=== PATIENT | female | born 1965 | race Caucasian/White ===

== ENCOUNTER 2017-08-24 20:30 | Inpatient (IN) | payer BC ==
[2017-08-24 21:05] LABS: Urine Blood 2+ (NEG); Urine Glucose NEGATIVE (NEG); Urine Protein NEGATIVE (NEG); Urine pH 7.5 (5.0-7.0)
[2017-08-24 21:45] LABS: Absolute Lymphocytes (CBC) 2.2 K/uL (0.7-4.9); Absolute Monocytes 0.8 K/uL (0.1-1.3); Absolute Neutrophil 5.8 K/uL (1.8-8.0); Basophils % 0.5 % (0-1.3); Eosinophils % 0.6 % (0-4.4); Lymphocytes % 24.3 % (15.3-44.8); MCH 31.9 pg (27.0-35.0); MCV 90.5 fL (80-100); MPV 8.4 fL (7.6-11.3); Monocytes % 9.1 % (3.3-12.3)
--- NOTE | 2017-08-24 21:45 | RAD REPORT ---
EXAM DESCRIPTION: RAD - Chest Single View - 08/24/2017 9:39 pm CLINICAL HISTORY: PALPITATIONS Chest pain. COMPARISON: Chest Single View dated 10/01/2016; Chest Pa And Lat (2 Views) dated 04/22/2016; Chest Pa And Lat (2 Views) dated 03/27/2016; CHEST SINGLE VIEW dated 04/25/2013 FINDINGS: Portable technique limits examination quality. The lungs are grossly clear. The heart is normal in size. No displaced fractures.Cervical hardware pl ate noted. IMPRESSION: No acute intrathoracic process suspected.
[2017-08-24 21:46] LABS: Protime INR 1.03
[2017-08-24 21:51] LABS: Bicarbonate 24 mEq/L (21-31); Glucose Level 117 mg/dL (65-120); Potassium 3.1 mEq/L (3.6-5.0); Sodium Level 121 mEq/L (135-145)
[2017-08-24 21:57] LABS: ALT/SGPT 13 IU/L (10-60); AST/SGOT 20 IU/L (10-42); Alkaline Phosphatase 89 IU/L (42-121); BUN Blood Urea Nitrogen 8 mg/dL (6-20); Bilirubin Direct 0.1 mg/dL (0-0.2); Bilirubin Total 0.5 mg/dL (0.3-1.2); Creatine Phosphokinase 159 IU/L (22-269); Magnesium 1.8 mg/dL (1.8-2.5); Protein, Total 6.6 g/dL (6.0-8.3)
[2017-08-24 22:01] LABS: CKMB Creatine Kinase MB 1.9 ng/ml (0.3-4.0)
--- NOTE | 2017-08-24 23:11 | EDPHYS ---
Physician Documentation [facility] Name: Sydney Oliveira Age: 52 yrs Sex: Female : 1965 Arrival Date: 08/24/2017 Time: 20:34 Bed 4 Private MD: Durga Lagos H ED Physician Ryland Bueno HPI: 08/24 21:35 This 52 yrs old Female presents to ER via Ambulatory with complaints of pkl Dizziness, Vomiting, Headache, High Blood Pressure. 21:36 The patient presents with a history of heart racing. Onset: The symptoms/episode pkl began/occurred just prior to arrival, 3 hour(s) ago. Associated signs and symptoms: Pertinent positives: headache. 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 - Social history:: Smoking status: Patient uses tobacco products, smokes one pack cigarettes per day. - Ebola Screening: : No symptoms or risks identified at this time. ROS: 21:36 Eyes: Negative for injury, pain, redness, and discharge, ENT: Negative for injury, pkl pain, and discharge, Neck: Negative for injury, pain, and swelling. 21:36 Cardiovascular: Positive for palpitations. 21:36 Respiratory: Negative for cough, shortness of breath. 21:36 Abdomen/GI: Negative for abdominal pain, nausea, vomiting, and diarrhea. 21:36 Back: Negative for acute changes. 21:36 : Negative for urinary symptoms. 21:36 MS/extremity: Negative for acute changes. 21:36 Skin: Negative for rash. 21:36 Neuro: Positive for headache. Exam: 23:08 Head/Face: Normocephalic, atraumatic. Eyes: Pupils equal round and reactive to light, pkl extra-ocular motions intact. Lids and lashes normal. Conjunctiva and sclera are non-icteric and not injected. Cornea within normal limits. Periorbital areas with no swelling, redness, or edema. ENT: Nares patent. No nasal discharge, no septal abnormalities noted. Tympanic membranes are normal and external auditory canals are clear. Oropharynx with no redness, swelling, or masses, exudates, or evidence of obstruction, uvula midline. Mucous membranes moist. Neck: Trachea midline, no thyromegaly or masses palpated, and no cervical lymphadenopathy. Supple, full range of motion without nuchal rigidity, or vertebral point tenderness. No Meningismus. Chest/axilla: Normal chest wall appearance and motion. Nontender with no deformity. No lesions are appreciated. Cardiovascular: Regular rate and rhythm with a normal S1 and S2. No gallops, murmurs, or rubs. Normal PMI, no JVD. No pulse deficits. Respiratory: Lungs have equal breath sounds bilaterally, clear to auscultation and percussion. No rales, rhonchi or wheezes noted. No increased work of breathing, no retractions or nasal flaring. Abdomen/GI: Soft, non-tender, with normal bowel sounds. No distension or tympany. No guarding or rebound. No evidence of tenderness throughout. Back: No spinal tenderness. No costovertebral tenderness. Full range of motion. Skin: Warm, dry with normal turgor. Normal color with no rashes, no lesions, and no evidence of cellulitis. MS/ Extremity: Pulses equal, no cyanosis. Neurovascular intact. Full, normal range of motion. Neuro: Awake and alert, GCS 15, oriented to person, place, time, and situation. Cranial nerves II-XII grossly intact. Motor strength 5/5 in all extremities. Sensory grossly intact. Cerebellar exam normal. Normal gait. Vital Signs: 20:55 BP 173 / 96; Pulse 80; Resp 18; Temp 98.2; Pulse Ox 100% on R/A; Weight 55.79 kg (R); ak1 Height 5 ft. 3 in. (160.02 cm) (R); Pain 6/10; 22:00 BP 165 / 102; Pulse 70; Resp 16; Pulse Ox 97% ; ao 23:10 BP 160 / 87; Pulse 73; Resp 18; Pulse Ox 98% on R/A; ao 08/25 00:00 BP 162 / 83; Pulse 80; Resp 16; Pulse Ox 99% ; ao 01:13 BP 112 / 66; Pulse 74; Resp 18; Pulse Ox 98% on R/A; Pain 0/10; ao 08/24 20:55 Body Mass Index 21.79 (55.79 kg, 160.02 cm) ak1 MDM: 08/24 20:51 Patient medically screened. pkl 23:08 Data reviewed: vital signs, nurses notes, lab test result(s), EKG, radiologic studies, pkl plain films. 08/24 20:58 Order name: Urine Dipstick--Ancillary (enter results); Complete Time: 23:03 eb 08/24 20:58 Order name: Urine --Ancillary (enter results); Complete Time: 23:03 eb 08/24 21:12 Order name: Basic Metabolic Panel; Complete Time: 23:03 pkl 08/24 21:12 Order name: BNP; Complete Time: 23:03 pkl 08/24 21:12 Order name: CBC with Diff; Complete Time: 23:03 pkl 08/24 21:12 Order name: Ckmb; Complete Time: 23:03 pkl 08/24 21:12 Order name: CPK; Complete Time: 23:03 pkl 08/24 21:12 Order name: LFT's; Complete Time: 23:03 pkl 08/24 21:12 Order name: Magnesium; Complete Time: 23:03 pkl 08/24 21:12 Order name: PT-INR; Complete Time: 23:03 pkl 08/24 21:12 Order name: Ptt, Activated; Complete Time: 23:03 pkl 08/24 21:12 Order name: Troponin (emerg Dept Use Only); Complete Time: 23:03 pkl 08/24 21:12 Order name: XRAY Chest (1 view); Complete Time: 23:03 pkl 08/24 21:12 Order name: EKG; Complete Time: 21:12 pkl 08/24 21:12 Order name: Cardiac monitoring; Complete Time: 23:29 pkl 08/24 21:12 Order name: EKG - Nurse/Tech; Complete Time: 23:30 pkl 08/24 21:12 Order name: IV Saline Lock; Complete Time: 23:29 pkl 08/24 21:12 Order name: Labs collected and sent; Complete Time: 23:30 pkl 08/24 21:12 Order name: O2 Per Protocol; Complete Time: 23:30 pkl 08/24 21:12 Order name: O2 Sat Monitoring; Complete Time: 23:30 pkl 08/24 21:12 Order name: Urine Dipstick-Ancillary (obtain specimen); Complete Time: 23:30 pkl Administered Medications: 23:28 Drug: Demerol 25 mg Route: IVP; Site: right antecubital; ao 23:28 Drug: Zofran 4 mg Route: IVP; Site: right antecubital; ao 23:29 Drug: NS 0.9% 1000 ml Route: IV; Rate: 1 bolus; Site: right antecubital; ao 08/25 00:17 Drug: NS 0.9% 1000 ml Route: IV; Rate: 125 ml/hr; Site: right antecubital; ao Disposition: 08/24/17 23:11 Hospitalization ordered by Karri Ramos for Inpatient Admission. Preliminary diagnosis is Generalized weakness. Hyponatremia. Headache. Vomiting. - Bed requested for Telemetry/MedSurg (Inpatient). - Status is Inpatient Admission. ao - Condition is Stable. - Problem is new. - Symptoms are unchanged. UTI on Admission? No Signatures: Dispatcher [employer] EDMS Briana Cardozo RN RN kl Lam, Pin, MD MD pkl Krenek, Amber, RN RN ak1 Kayode Tucker RN RN ao Corrections: (The following items were deleted from the chart) 00:31 08/24 23:11 Hospitalization Ordered by Karri Ramos MD for Inpatient Admission. basilio Preliminary diagnosis is Generalized weakness. Hyponatremia. Headache. Vomiting. Bed requested for Telemetry/MedSurg (Inpatient). Status is Inpatient Admission. Condition is Stable. Problem is new. Symptoms are unchanged. UTI on Admission? No. pkl 08/25 01:45 00:31 08/24/2017 23:11 Hospitalization Ordered by Karri Ramos MD for Inpatient ao Admission. Preliminary diagnosis is Generalized weakness. Hyponatremia. Headache. Vomiting. Bed requested for Telemetry/MedSurg (Inpatient). Status is Inpatient Admission. Condition is Stable. Problem is new. Symptoms are unchanged. UTI on Admission? No. kl
--- NOTE | 2017-08-24 23:11 | ER ---
Nurse's Notes [facility] Name: Sydney Oliveira Age: 52 yrs Sex: Female : 1965 Arrival Date: 08/24/2017 Time: 20:34 Bed 4 Private MD: Durga Lagos H Diagnosis: Generalized weakness. Hyponatremia. Headache. Vomiting Presentation: 08/24 20:56 Presenting complaint: Patient states: headache this morning increased after getting her ak1 nails done. pt c/o "racing heart rate" at 1600. pt with hx anxiety. Transition of care: patient was not received from another setting of care. Onset of symptoms was August 24, 2017. Risk Assessment: Do you want to hurt yourself or someone else? Patient reports no desire to harm self or others. Initial Sepsis Screen: Does the patient meet any 2 criteria? No. Patient's initial sepsis screen is negative. Does the patient have a suspected source of infection? No. Patient's initial sepsis screen is negative. Care prior to arrival: None. 20:56 Method Of Arrival: Ambulatory ak1 20:56 Acuity: VILLA 3 ak1 Triage Assessment: 21:06 General: Appears in no apparent distress. Behavior is calm, cooperative. Pain: ak1 Complains of pain in headache. EENT: No signs and/or symptoms were reported regarding the EENT system. Neuro: Level of Consciousness is awake, alert, obeys commands, Oriented to person, place, time, situation, Head Of Strategy are equal bilaterally Moves all extremities. Gait is steady, Speech is normal, Facial symmetry appears normal. Cardiovascular: Reports lightheadedness, palpitations. Respiratory: No deficits noted. GI: Reports nausea. : No signs and/or symptoms were reported regarding the genitourinary system. Derm: No signs and/or symptoms reported regarding the dermatologic system. Musculoskeletal: No signs and/or symptoms reported regarding the musculoskeletal system. 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 - Social history:: Smoking status: Patient uses tobacco products, smokes one pack cigarettes per day. - Ebola Screening: : No symptoms or risks identified at this time. Screenin:35 Abuse screen: Denies threats or abuse. Denies injuries from another. Nutritional ao screening: No deficits noted. Tuberculosis screening: No symptoms or risk factors identified. Fall Risk None identified. Assessment: 21:20 General: See triage assessment. GI: Abdomen is non-distended. ao 22:25 Reassessment: Patient appears in no apparent distress at this time. Patient and/or ao family updated on plan of care and expected duration. Pain level reassessed. Patient is alert, oriented x 3, equal unlabored respirations, skin warm/dry/pink. 23:32 Reassessment: Patient appears in no apparent distress at this time. Patient and/or ao family updated on plan of care and expected duration. Pain level reassessed. Patient is alert, oriented x 3, equal unlabored respirations, skin warm/dry/pink. Waiting Dr orders. Patient to be admitted to the hospital. Patient agree with the POC. 08/25 00:30 Reassessment: Patient appears in no apparent distress at this time. Patient and/or ao family updated on plan of care and expected duration. Pain level reassessed. Patient is alert, oriented x 3, equal unlabored respirations, skin warm/dry/pink. Waiting on room assignment. 01:18 Reassessment: Patient appears in no apparent distress at this time. Report called to ao primary nurse. Vital Signs: 08/24 20:55 BP 173 / 96; Pulse 80; Resp 18; Temp 98.2; Pulse Ox 100% on R/A; Weight 55.79 kg (R); ak1 Height 5 ft. 3 in. (160.02 cm) (R); Pain 6/10; 22:00 BP 165 / 102; Pulse 70; Resp 16; Pulse Ox 97% ; ao 23:10 BP 160 / 87; Pulse 73; Resp 18; Pulse Ox 98% on R/A; ao 08/25 00:00 BP 162 / 83; Pulse 80; Resp 16; Pulse Ox 99% ; ao 01:13 BP 112 / 66; Pulse 74; Resp 18; Pulse Ox 98% on R/A; Pain 0/10; ao 08/24 20:55 Body Mass Index 21.79 (55.79 kg, 160.02 cm) ak1 ED Course: 08/24 20:34 Patient arrived in ED. al2 20:36 Durga Lagos DO is Private Physician. al2 20:51 Ryland Bueno MD is Attending Physician. pkl 20:55 Purvi Jack RN is Primary Nurse. ak1 20:59 Triage completed. ak1 21:06 Arm band placed on Patient placed in an exam room, on a stretcher, on pulse oximetry, ak1 Patient notified of wait time. 21:39 XRAY Chest (1 view) In Process Unspecified. EDMS 23:09 Karri Ramos MD is Hospitalizing Provider. pkl 23:35 Patient has correct armband on for positive identification. Pulse ox on. NIBP on. ao 08/25 01:09 No provider procedures requiring assistance completed. Inserted saline lock: 20 gauge ak1 in right antecubital area, using aseptic technique. ,using aseptic technique. placed by Karlene Alex Blood collected. Patient admitted, IV remains in place. Administered Medications: 08/24 23:28 Drug: Demerol 25 mg Route: IVP; Site: right antecubital; ao 23:28 Drug: Zofran 4 mg Route: IVP; Site: right antecubital; ao 23:29 Drug: NS 0.9% 1000 ml Route: IV; Rate: 1 bolus; Site: right antecubital; ao 08/25 00:17 Drug: NS 0.9% 1000 ml Route: IV; Rate: 125 ml/hr; Site: right antecubital; ao Outcome: 08/24 23:11 Decision to Hospitalize by Provider. pkl 08/25 01:10 Admitted to Med/surg accompanied by tech, via wheelchair, room 225, with chart, Report ak1 called to Roya FULLER Condition: good 01:14 Instructed on the need for admit. ak1 01:45 Patient left the ED. ao Signatures: Dispatcher [employer] EDMS Ryland Bueno MD MD pkl Krenek, Purvi, RN RN ak1 Kayode Tucker, RN RN michael Chan, Raina mai
[2017-08-24] MEDS ORDERED: NA CHLORIDE 0.9% 1,000 ML ONE (23:26)
[2017-08-24] MEDS ORDERED: ONDANSETRON 4 MG/2 ML VIAL ONE (23:26)
[2017-08-24] MEDS ORDERED: MEPERIDINE HCL 25 MG/0.5 ML ONE (23:26)
--- NOTE | 2017-08-25 00:12 | P.HP ---
Certification for Inpatient Patient admitted to: Inpatient With expected LOS: >2 Midnights Practitioner: I am a practitioner with admitting privileges, knowledge of patient current condition, hospital course, and medical plan of care. Services: Services provided to patient in accordance with Admission requirements found in Title 42 Section 412.3 of the Code of Federal Regulations Patient History Date of Service: 08/25/17 Reason for admission: hyponatremia History of Present Illness: Ms Oliveira is a 52 years old woman with history of anxiety, migraine headache, chronic pain who came to ED complaining of severe headache. Her symptoms started this morning. Her headache was generalized, and progressively getting worse. It was associated with few episodes of diarrhea and vomiting. She tried tylenol but vomited it too. She denied fever or chills. No weakness or numbness. She denied chest pain or SOB, however this afternoon, she felt racing heart rate. Lab work remarkable for hypokalemia 3.1, hyponatremia 121, also low chloride 88, renal function WNL. Allergies codeine [Codeine] Allergy (Intermediate, Verified 07/10/15 09:54) Rash morphine Allergy (Intermediate, Verified 07/10/15 09:54) Rash Penicillins Allergy (Intermediate, Verified 07/10/15 09:54) UPSET STOMACH AND SKIN CRAWLING hydromorphone HCl [From Dilaudid] Allergy (Verified 07/10/15 09:54) hallucinations Home Medications: LORazepam [Lorazepam] 0.5 mg PO PRN 07/10/15 Losartan/Hydrochlorothiazide [Losartan-Hctz 50-12.5 mg Tab] 50 mg PO BID Methocarbamol [Robaxin] 500 mg PO PRN PRN 07/10/15 Propafenone [Rythmol SR] 225 mg PO BID 07/10/15 Temazepam 30 mg PO 30 MIN BEFORE HS 07/10/15 - Past Medical/Surgical History -: anxiety -: migraine -: NECK SURGERY; Hysterectomy; ; Cholecystectomy; Appendectomy - Family History Family History: Reviewed- Non-Contributory - Social History Smoking Status: Current every day smoker Counseled patient to stop smoking for: less than 10 minutes Smoking therapy provided: Yes Patient receptive to therapy: Yes CD- Drugs: No Place of Residence: Home Review of Systems 10-point ROS is otherwise unremarkable Physical Examination - Physical Exam General: Alert, Mild distress (due to headache) HEENT: Atraumatic, PERRLA, Mucous membr. moist/pink, EOMI, Sclerae nonicteric Neck: Supple, 2+ carotid pulse no bruit, No LAD, Without JVD or thyroid abnormality Respiratory: Clear to auscultation bilaterally, Normal air movement Cardiovascular: Regular rate/rhythm, Normal S1 S2 Gastrointestinal: Normal bowel sounds, No tenderness Musculoskeletal: No tenderness Integumentary: No rashes Neurological: Normal speech, Normal strength at 5/5 x4 extr, Normal tone, Normal affect Lymphatics: No axilla or inguinal lymphadenopathy - Studies Laboratory Data (last 24 hrs) 08/24/17 21:25: PT 12.2, INR 1.03, APTT 29.2 08/24/17 21:25: WBC 8.9, Hgb 13.4, Hct 38.0, Plt Count 275 08/24/17 21:25: B-Natriuretic Peptide 10 08/24/17 21:25: Sodium 121 L, Potassium 3.1 L, BUN 8, Creatinine 0.63, Glucose 117, Magnesium 1.8, Total Bilirubin 0.5, AST 20, ALT 13, Alkaline Phosphatase 89 Assessment and Plan - Problems (Diagnosis) (1) Hyponatremia Current Visit: Yes Status: Acute (2) Migraine Current Visit: Yes Status: Acute Qualifiers: Migraine type: unspecified Status migrainosus presence: without status migrainosus Intractability: not intractable Qualified Code(s): G43.909 - Migraine, unspecified, not intractable, without status migrainosus (3) Hypokalemia Current Visit: Yes Status: Acute (4) Dehydration Current Visit: Yes Status: Acute - Plan The patient will be admitted to the hospital due to hyponatremia. Pending serum and urine osmolality, however, this is possible secondary volume depletion since she has had diarrhea and vomiting. Will start IV normal saline, the goal is gradual increase of sodium level. Will order sumatriptam PRN, and symptomatic medication for nausea and vomiting. - Advance Directives Does patient have a Living Will: No Does patient have a Durable POA for Healthcare: No - Code Status/Comfort Care Code Status Assessed: Yes Code Status: Full Code
[2017-08-25] MEDS ORDERED: NA CHLORIDE 0.9% 1,000 ML ONE (00:16)
[2017-08-25] MEDS: SUMATRIPTAN SUCCI 50 MG TAB PO PRN ×2 (00:54→09:55)
[2017-08-25] MEDS ORDERED: ONDANSETRON 4 MG/2 ML VIAL IV PRN (01:55)
[2017-08-25] MEDS: NA CHLORIDE 0.9% 1,000 ML IV SCH ×2 (01:55→11:34)
[2017-08-25 02:15] VITALS: BMI 21.4
[2017-08-25] MEDS: ACETAMINOPHEN 500 MG TAB PO PRN ×2 (02:55→08:34)
[2017-08-25 04:00] VITALS: O2SAT 100
[2017-08-25 05:52] LABS: Absolute Lymphocytes (CBC) 2.1 K/uL (0.7-4.9); Absolute Monocytes 0.7 K/uL (0.1-1.3); Absolute Neutrophil 2.7 K/uL (1.8-8.0); Basophils % 0.6 % (0-1.3); Eosinophils % 2.2 % (0-4.4); Lymphocytes % 37.3 % (15.3-44.8); MCH 31.7 pg (27.0-35.0); MCV 92.6 fL (80-100); MPV 8.7 fL (7.6-11.3); Monocytes % 12.9 % (3.3-12.3); RBC Red Blood Cell Count 4.32 M/uL (3.86-4.86)
--- NOTE | 2017-08-25 06:14 | EKG ---
Test Date: 2017-08-24 Test Time: 21:01:11 Estimator And Drafter: SERVANDO MEASUREMENT RESULTS: Intervals: Rate: 85 CA: 156 QRSD: 82 QT: 380 QTc: 452 [place]: P: 76 CA: 156 QRS: 72 T: 56 INTERPRETIVE STATEMENTS: Normal sinus rhythm Normal ECG Compared to ECG 10/01/2016 23:49:42 Sinus arrhythmia no longer present Electronically Signed On 08-25-17 06:13:50 CDT by Bernabe Hernandez
[2017-08-25 06:40] LABS: BUN Blood Urea Nitrogen 7 mg/dL (6-20); Bicarbonate 23 mEq/L (21-31); Glucose Level 96 mg/dL (65-120); Potassium 4.2 mEq/L (3.6-5.0); Sodium Level 136 mEq/L (135-145)
--- NOTE | 2017-08-25 08:25 | RAD REPORT ---
EXAM DESCRIPTION: CT - Head Brain Wo Cont - 08/25/2017 4:10 am CLINICAL HISTORY: Headache with nausea and vomiting, history of anxiety and migraine headaches A preliminary written report was provided at the time of the study, and the report was reviewed prio r to final dictation. COMPARISON: None. TECHNIQUE: Axial 5 mm thick images of the head were obtained without IV contrast. All CT scans are performed using dose optimization technique as appropriate and may include automated exposure control or mA/KV adjustment according to patient size. FINDINGS: No intracranial hemorrhage, mass, edema or shift of mid-line structures. No acute infarcti on changes seen. No abnormal extra-axial fluid collections. Ventricles are normal. Mastoid air cells and visualized portions of the paranasal sinuses are clear. No acute bony findings. IMPRESSION: Negative non-contrast CT head examination.
[2017-08-25] MEDS ORDERED: NICOTINE 14 MG/PAT TD SCH (09:00)
[2017-08-25 12:14] VITALS: BP 134/64
[2017-08-25 12:15] VITALS: TEMP 97.2
--- NOTE | 2017-08-25 14:20 | P.DS ---
Admission Date: 08/24/17 Discharge Date: 08/25/17 Disposition: ROUTINE DISCHARGE Discharge Condition: GOOD Reason for Admission: hyponatremia Consultations: - Problems (1) Dehydration Current Visit: Yes Status: Resolved (2) Hypokalemia Current Visit: Yes Status: Resolved (3) Hyponatremia Current Visit: Yes Status: Resolved (4) Migraine Current Visit: Yes Status: Resolved Qualifiers: Migraine type: unspecified Status migrainosus presence: without status migrainosus Intractability: not intractable Qualified Code(s): G43.909 - Migraine, unspecified, not intractable, without status migrainosus Brief History of Present Illness: Ms Oliveira is a 52 years old woman with history of anxiety, migraine headache, chronic pain who came to ED complaining of severe headache. Her symptoms started this morning. Her headache was generalized, and progressively getting worse. It was associated with few episodes of diarrhea and vomiting. She tried tylenol but vomited it too. She denied fever or chills. No weakness or numbness. She denied chest pain or SOB, however this afternoon, she felt racing heart rate. Lab work remarkable for hypokalemia 3.1, hyponatremia 121, also low chloride 88, renal function WNL. Hospital Course: Overall during the hospital stay patient remained stable Initially patient was admitted to the hospital for severe headache which was most likely secondary to migraine along with nausea vomiting and hypernatremia. Patient was started on IV fluids and was given Imitrex here in the hospital. Patient had complete resolution of her symptoms and her lab work revealed a sodium level of 136. Patient at that time was discharged home under stable condition. Patient did tolerate her diet and was able to ambulate just fine and was asked to follow up with primary care provider. Patient was also asked to take Imitrex as necessary for migraine attacks. Patient demonstrated understanding. Vital Signs/Physical Exam: Temp Pulse Resp BP Pulse Ox 97.2 F 73 20 134/64 97 08/25/17 12:00 08/25/17 12:00 08/25/17 12:00 08/25/17 12:08/25/17 12:00 General: Alert, In no apparent distress HEENT: Atraumatic, PERRLA, EOMI Neck: Supple, JVD not distended Respiratory: Clear to auscultation bilaterally, Normal air movement Cardiovascular: Regular rate/rhythm, Normal S1 S2 Gastrointestinal: Normal bowel sounds, No tenderness Musculoskeletal: No tenderness Integumentary: No rashes Neurological: Normal speech, Normal tone, Normal affect Lymphatics: No axilla or inguinal lymphadenopathy Laboratory Data at Discharge: WBC 5.7 K/uL (4.3-10.9) D 08/25/17 05:16 Hgb 13.7 g/dL (12.0-15.0) 08/25/17 05:16 Hct 40.0 % (36.0-45.0) 08/25/17 05:16 Plt Count 277 K/uL (152-406) 08/25/17 05:16 PT 12.2 SECONDS (9.5-12.5) 08/24/17 21:25 INR 1.03 08/24/17 21:25 APTT 29.2 SECONDS (24.3-36.9) 08/24/17 21:25 Sodium 136 mEq/L (135-145) 08/25/17 05:16 Potassium 4.2 mEq/L (3.6-5.0) 08/25/17 05:16 BUN 7 mg/dL (6-20) 08/25/17 05:16 Creatinine 0.62 mg/dL (0.44-1.00) 08/25/17 05:16 Glucose 96 mg/dL (65-120) 08/25/17 05:16 Magnesium 2.1 mg/dL (1.8-2.5) 08/25/17 05:16 Total Bilirubin 0.5 mg/dL (0.3-1.2) 08/24/17 21:25 AST 20 IU/L (10-42) 08/24/17 21:25 ALT 13 IU/L (10-60) 08/24/17 21:25 Alkaline Phosphatase 89 IU/L (42-121) 08/24/17 21:25 B-Natriuretic Peptide 10 pg/ml (<=100) 08/24/17 21:25 Home Medications: Fluoxetine HCl [Prozac] 10 mg PO DAILY 08/25/17 Fluoxetine HCl [Prozac] 20 mg PO DAILY 08/25/17 LORazepam [Ativan*] 0.5 mg PO BID PRN 08/25/17 Losartan Potassium [Cozaar*] 50 mg PO BID 08/25/17 Sumatriptan [Imitrex*] 50 mg PO PRN PRN #30 tab 08/25/17 New Medications: Sumatriptan [Imitrex*] 50 mg PO PRN PRN #30 tab PRN Reason: Headache Diet: Regular Activity: Ad chandra Followup: Jay Santana MD [ASSOCIATE-ACTIVE - CAN ADMIT] - 1 Week
== END 2017-08-25 15:45 | disposition home or self-care (01) | DRG 641 ==
LOC: ER 20:30 → ERHOLD 23:13 → 2ND 08-25 01:07
PROVIDERS: ADMIT Internal Medicine; ATTEND Family Medicine
DX: E87.1 Hypo-osmolality and hyponatremia (principal); G43.909 Migraine, unspecified, not intractable, without status migrainosus; F41.9 Anxiety disorder, unspecified; F17.210 Nicotine dependence, cigarettes, uncomplicated; E86.0 Dehydration; F32.9 Major depressive disorder, single episode, unspecified; E87.6 Hypokalemia; G89.29 Other chronic pain; Z88.5 Allergy status to narcotic agent; Z88.0 Allergy status to penicillin
CPT/HCPCS: 36415; 70450; 71045; 80048; 80076; 81003; 81025; 82550; 82553; 83735; 83880; 83930; 83935; 84484; 85025; 85610; 85730; 93005; 96374; 96375; 99285; J2175; J2405; J7030

== ENCOUNTER 2018-01-11 09:54 | Emergency (ER) | payer BC ==
--- OUTSIDE RECORDS SUMMARY | 2018-01-11 09:56 | XMS REPORT | Continuity of Care Document ---
:1965 Author Organization Interface Problems Problem Status Onset Date Classification Date Comments Source Reported Medications Medication Details Route Status Patient Ordering Order Source Instructions Provider Date Allergies, Adverse Reactions, Alerts Substance Category Reaction Severity Reaction Status Date Comments Source type Reported Immunizations Immunization Date Given Site Status Last Updated Comments Source Results Order Results Value Reference Date Interpretation Comments Source Name Range Vital Signs Vital Sign Value Date Comments Source Encounters Location Location Encounter Encounter Reason Attending ADM DC Status Source Details Type Number For Provider Date Date Visit Outpatient [id number] MARLENE MARCOS 11/20 Active [facility] Procedures Procedure Code Date Perfomer Comments Source
[2018-01-11] MEDS ORDERED: DIPHENHYDRAMINE 25 MG TAB/CAP ONE (10:34)
[2018-01-11] MEDS ORDERED: METOCLOPRAMIDE 10 MG/2mL INJ ONE (10:35)
[2018-01-11] MEDS ORDERED: NA CHLORIDE 0.9% 1,000 ML ONE (10:35)
--- NOTE | 2018-01-11 11:21 | RAD REPORT ---
EXAM DESCRIPTION: CT - CTHCSPWOC - 01/11/2018 11:04 am CLINICAL HISTORY: Headache, neck pain COMPARISON: Cervical spine CT July 2015, CT head study August 2017 TECHNIQUE: Axial 5 mm thick images of the head were obtained. Axial 2 mm thick images of the cervic al spine were obtained with sagittal and coronal reconstruction images generated and reviewed. All CT scans are performed using dose optimization technique as appropriate and may include automated exposure control or mA/KV adjustment according to patient size. FINDINGS: No intracranial hemorrhage, mass, edema or acute intracranial finding. No suspicion for ac cici infarction. No extra-axial fluid collections. Mastoid air cells and paranasal sinuses are clear. No globe or orbit abnormality seen. No changes from prior imaging. Cervical bodies are normal in height. No subluxation abnormality. Well-healed C5-7 fusion changes are present. C4-5 disc space is slightly narrowed. This is a stable finding from 2016. Degenerative duke ges at the dens C1 level also similar to comparison. No fracture or acute bony abnormality. No destru ctive bone process seen. No paraspinal mass or hematoma. IMPRESSION: Negative CT head examination for acute or significant finding. Negative CT cervical spine examination for acute or significant finding. No significant change from the 2016 study.
[2018-01-11] MEDS ORDERED: KETOROLAC 30 MG/ML INJ ONE (11:26)
[2018-01-11] MEDS ORDERED: DEXAMETHASONE 4 MG/ML VIAL ONE (11:34)
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
[2018-01-11] MEDS ORDERED: ONDANSETRON 4 MG/2 ML VIAL ONE (13:01)
[2018-01-11 13:14] VITALS: TEMP 97.3
[2018-01-11 13:15] VITALS: BP 160/96; O2SAT 99
== END 2018-01-11 13:01 | disposition home or self-care (01) ==
LOC: ER 09:54
DX: R51 Headache (principal); I10 Essential (primary) hypertension; E78.5 Hyperlipidemia, unspecified; F41.9 Anxiety disorder, unspecified; F32.9 Major depressive disorder, single episode, unspecified; F17.210 Nicotine dependence, cigarettes, uncomplicated; Z88.0 Allergy status to penicillin; Z88.5 Allergy status to narcotic agent
CPT/HCPCS: 70450; 72125; 87070; 87081; 87804; 96374; 96375; 99284; J2405; J2765; J7030

== ENCOUNTER 2018-02-08 17:49 | Emergency (ER) | payer BC ==
--- OUTSIDE RECORDS SUMMARY | 2018-02-08 17:51 | XMS REPORT ---
:1965 [facility] Address [address] [place] [address] Dr. Ramsay [address] [place] [address] Care Team Providers Name Role Phone Unavailable Unavailable Unavailable Problems This patient has no known problems. Allergies, Adverse Reactions, Alerts This patient has no known allergies or adverse reactions. Medications This patient has no known medications.
--- OUTSIDE RECORDS SUMMARY | 2018-02-08 17:51 | XMS REPORT | Continuity of Care Document ---
[...] Number For Provider Date Date Visit Outpatient [id number] MARLENE MARCOS 11/20 Active [place] Procedures Procedure Code Date Perfomer Comments Source
[2018-02-08] MEDS ORDERED: ONDANSETRON 4 MG (ODT) TAB ONE (18:19)
--- NOTE | 2018-02-08 19:34 | ER ---
Nurse's Notes [facility] Name: Sydney Oliveira Age: 52 yrs Sex: Female : 1965 Arrival Date: 02/08/2018 Time: 17:50 Bed 15 Private MD: Chandan Tanner V Diagnosis: Presentation: 02/08 18:06 Presenting complaint: Patient states: For the past few weeks I have had a headache and la1 my arm has been going numb and tingling, I think there is something wrong with the hardware in my neck. Vomiting began this morning. Pt denies fevers, reports neck burs but full ROM intact in neck. Transition of care: patient was not received from another setting of care. Onset of symptoms was February 08, 2018. Risk Assessment: Do you want to hurt yourself or someone else? Patient reports no desire to harm self or others. Initial Sepsis Screen: Does the patient meet any 2 criteria? No. Patient's initial sepsis screen is negative. Does the patient have a suspected source of infection? No. Patient's initial sepsis screen is negative. Care prior to arrival: None. 18:06 Method Of Arrival: Ambulatory la1 18:06 Acuity: VILLA 3 la1 Historical: - Allergies: 18:06 Codeine; la1 18:06 Morphine; la1 18:06 PENICILLINS; la1 - PMHx: 18:06 Anxiety; Chronic pain; Depression; Hyperlipidemia; Hypertension; Migraines; la1 - Immunization history:: Adult Immunizations up to date. - Social history:: Smoking status: Patient/guardian denies using tobacco. - Ebola Screening: : No symptoms or risks identified at this time. Vital Signs: 18:08 BP 156 / 100; Pulse 87; Resp 16; Temp 97.2; Pulse Ox 98% on R/A; Weight 56.7 kg; Height la1 5 ft. 4 in. (162.56 cm); 18:08 Body Mass Index 21.46 (56.70 kg, 162.56 cm) la1 ED Course: 17:50 Patient arrived in ED. sb2 17:50 Chandan Tanner MD is Private Physician. sb2 18:07 Triage completed. la1 18:07 Arm band placed on right wrist. la1 19:27 Sage Astorga MD is Attending Physician. rn 19:28 Chi, Bossman, RN is Primary Nurse. jb4 19:33 [facility]. Unable to locate patient. Will bb disposition as left without being seen by a provider. Administered Medications: 18:12 Drug: Zofran 4 mg Route: PO; la1 Outcome: 19:33 Patient left the ED. bb Signatures: Lamar Avelar RN RN bb Sage Astorga MD MD rn Attema, Lee, RN RN la1 Bossman Mireles, RN RN jb4 Dayna Moore sb2
[2018-02-08 19:52] VITALS: BP 156/100; TEMP 97.2; O2SAT 98
== END 2018-02-08 19:33 | disposition left against medical advice (07) ==
LOC: ER 17:49
DX: R51 Headache (principal); R20.0 Anesthesia of skin; Z53.21 Procedure and treatment not carried out due to patient leaving prior to being seen by health care provider
CPT/HCPCS: 99282

== ENCOUNTER 2018-11-28 18:40 | Emergency (ER) | payer BC ==
--- OUTSIDE RECORDS SUMMARY | 2018-11-28 18:42 | XMS REPORT ---
:1965 [facility] Address [address] [place] [address] Dr. Ramsay [address] [place] [id number] Care Team Providers Name Role Phone Unavailable Unavailable Unavailable Problems This patient has no known problems. Allergies, Adverse Reactions, Alerts This patient has no known allergies or adverse reactions. Medications This patient has no known medications.
--- OUTSIDE RECORDS SUMMARY | 2018-11-28 18:42 | XMS REPORT | Continuity of Care Document ---
:1965 Author Organization [facility] Social IQ (Social Influence Quotient) Information [place] Care Team Providers Name Role Phone [facility]un Information Exchange Unavailable Unavailable Problems Problem Status Onset Classification Date Comments Source Date Reported M54.16 - Active 05/12/19 [facility] RADICULOPATHY, 19 [place] LUMBAR REGION Anxiety (finding) Resolved Problem 05/17/2018 [facility], [facility] [place] Carpal tunnel Resolved Problem 05/17/2018 [facility] syndrome Neuro, (disorder) [facility] Chronic headache Resolved Problem 05/17/2018 [facility] disorder Neuro, (disorder) [facility] [place] 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 Neuro, intervertebral [facility] disc (disorder) [place] Hypertensive Resolved Problem 05/17/2018 [facility] disorder, Neuro, systemic arterial [facility] (disorder) [place] Insomnia Resolved Problem 05/17/2018 [facility] Memory impairment Resolved Problem 05/17/2018 [facility]finding[facility] [place] Ventricular Resolved Problem 05/17/2018 [facility] premature beats [facility] (disorder) [facility] Slurred speech Resolved Problem 05/17/2018 [facility] (finding) [facility] Tinnitus Resolved Problem 05/17/2018 [facility] [place] Medications Medication Details Route Status Patient Ordering Order Source Instructions Provider Date Tylenol PO, 0 Active 05/15/19 [facility] Refill(s) 19 [facility] ondansetron 4 4 mg=1 Active 05/15/19 [facility] mg oral tablet tab, PO, 19 [facility] Q8H, 0 Refill(s) Naltrexone 0 Active 05/15/19 [facility] Refill(s) 19 [facility] FLUoxetine 40 40 mg=1 Active 05/15/19 [facility] mg oral cap, PO, 19 [facility] capsule Daily, 0 Refill(s) Allergies, Adverse Reactions, Alerts Substance Category Reaction Severity Reaction Status Date Comments Source type Reported penicillins Assertion Drug Active [facility] allergy [facility] codeine Assertion Drug Active [facility] allergy [facility] morphine Assertion Drug Active [facility] allergy [place] Vicodin Assertion Drug Active [facility] allergy [place] Immunizations No Data Provided for This Section Results No Data Provided for This Section Pathology Reports No Data Provided for This Section Diagnostic Reports Report Value Date Source Spine lumbar EXAM: XR LUMBAR SPINE 4 VIEWS 05/14/2018 [facility] flex/ext 2 view DX DATE: 05/14/2018 10:28 [employer] INDICATION: - Standing AP/Lateral and Standing Flex/Ext;M54.16 Radiculopathy, lumbar region COMPARISON: None TECHNIQUE: AP view, lateral views in neutral position, flexion and extension , of the lumbar spine FINDINGS: 5 lumbar type, non-rib bearing vertebral bodies are present. Satisfactory alignment lumbar spine. Vertebral body heights are maintained. Severe disc height loss with mild endplate sclerosis an d small vertebral osteophytes at L4-L5 and L5-S1. Moderate facet arthropathy of the lower lumbar spine. Cholecystectomy clips are present. IMPRESSION: 1. Severe degenerative disc disease and moderate facet arthropathy at L4-L5 and L5-S1. 2. No abnormal motion on flexion -- extension. Consultation Notes No Data Provided for This Section Discharge Summaries No Data Provided for This Section History and Physicals No Data Provided for This Section Vital Signs Vital Sign Value Date Comments Source Height 161.29 cm 05/14/2018 [facility] Weight 55.597 05/14/2018 [facility] BMI Calculated 21.37 05/14/2018 [facility] Systolic (mm Hg) 139 05/14/2018 [facility] Diastolic (mm Hg) 89 05/14/2018 [facility] Temperature Oral (F) 99.0 F 05/14/2018 [facility] Heart Rate 90 05/14/2018 [facility] Encounters Location Location Encounter Encounter Reason Attending ADM DC Status Source Details Type Number For Provider Date Date Visit Outpatient [id number] MARLENE MARCOS 11/20 [facility] [id number] 05/04 05/06 [facility] Message /2018 Neuro Outpatient [id number] ROGER GANT 05/14 Active [facility] Di[facility] [id number] Roger Gant 05/14 05/15 [facility]2018 [place] [facility] [id number] Roger Gant 05/14 05/15 [facility] /2018 Neuro Procedures Procedure Code Date Perfomer Comments Source Cholecystectomy [id number] 12/08/2009 [facility], [facility] Hysterectomy [id number] 12/08/2008 [facility], [facility] [place] Bunionectomy [id number] 07/09/2003 [facility], [facility] Removal of ectopic [id number] 12/08/1997 [facility] App[facility] [id number] 06/08/1994 [facility], [facility] Cervical spinal [id number] [facility] fusion Neuro, [facility] Lumbar discectomy [id number] [facility], [facility] Assessment and Plan No Data Provided for This Section Plan of Care No Data Provided for This Section Social History Social History Date Source Social History TypeResponse 11/21/2015 MICHAEL Dunn Alcohol Current, Frequency: 1-2 times per month. Smoking Status Current every day smoker; Type: Cigarettes; Ready to change: No; Concerns about tobacco use in household: No; Exposure to Tobacco Smoke None; Cigarette Smoking Last 365 Days Yes; Reg Smoking Cessation Counseling No entered on: 05/14/18 Social History TypeResponse 11/21/2015 [facility] Alcohol Current, Frequency: 1-2 times per month. Smoking Status Current every day smoker; Type: Cigarettes; Ready to change: No; Concerns about tobacco use in household: No; Exposure to Tobacco Smoke None; Cigarette Smoking Last 365 Days Yes; Reg Smoking Cessation Counseling No entered on: 05/14/18 Family History No Data Provided for This Section Advance Directives No Data Provided for This Section Functional Status No Data Provided for This Section
[2018-11-28] MEDS ORDERED: ONDANSETRON 4 MG/2 ML VIAL ONE ×2 (19:17→20:59)
[2018-11-28 19:26] LABS: Absolute Lymphocytes (CBC) 2.1 K/uL (0.7-4.9); Basophils % 1.2 % (0-1.3); Hematocrit 40.5 % (36.0-45.0); Lymphocytes % 22.4 % (15.3-44.8); MPV 8.2 fL (7.6-11.3); RBC Red Blood Cell Count 4.44 M/uL (3.86-4.86)
[2018-11-28 19:28] LABS: Protime INR 0.98
--- NOTE | 2018-11-28 19:40 | RAD REPORT ---
EXAM DESCRIPTION: RAD - Chest Single View - 11/28/2018 7:32 pm CLINICAL HISTORY: Chest pain;Palpitations Chest pain. COMPARISON: <Comparisons> FINDINGS: Portable technique limits examination quality. The lungs are grossly clear. The heart is normal in size. No displaced fractures.Cervical hardware pl ate. IMPRESSION: No acute intrathoracic process suspected.
[2018-11-28 19:45] LABS: ALT/SGPT 19 U/L (12-78); AST/SGOT 18 U/L (15-37); Alkaline Phosphatase 112 U/L (45-117); BUN Blood Urea Nitrogen 5 mg/dL (7-18); Bicarbonate 26 mmol/L (21-32); Bilirubin Direct < 0.1 mg/dL (0-0.2); Bilirubin Total 0.5 mg/dL (0.2-1.0); Glucose Level 104 mg/dL (74-106); NT PRO-BNP 83 pg/mL (<125); Potassium 3.7 mmol/L (3.5-5.1); Protein, Total 7.2 g/dL (6.4-8.2); Sodium Level 131 mmol/L (136-145); Troponin (Emerg Dept Use Only) < 0.02 ng/mL (0.0-0.045)
[2018-11-28] MEDS ORDERED: NA CHLORIDE 0.9% 1,000 ML ONE (20:38)
[2018-11-28] MEDS ORDERED: DIPHENHYDRAMINE 50 MG/ML VIAL ONE (21:42)
[2018-11-28] MEDS ORDERED: KETOROLAC 30 MG/ML INJ ONE (21:42)
[2018-11-28] MEDS ORDERED: METOCLOPRAMIDE 10 MG/2mL INJ ONE (21:42)
--- NOTE | 2018-11-28 23:03 | ER ---
Nurse's Notes [facility] Name: Sydney Oliveira Age: 53 yrs Sex: Female : 1965 Arrival Date: 11/28/2018 Time: 18:42 Bed 16 Private MD: Chandan Tanner V Diagnosis: Chest pain, unspecified;Palpitations;Headache Presentation: 11/28 19:03 Presenting complaint: Patient states: I have been having pain in my chest, nausea, and la1 palpitations since 1000 today. Transition of care: patient was not received from another setting of care. Onset of symptoms was November 28, 2018. Risk Assessment: Do you want to hurt yourself or someone else? Patient reports no desire to harm self or others. Initial Sepsis Screen: Does the patient meet any 2 criteria? No. Patient's initial sepsis screen is negative. Does the patient have a suspected source of infection? No. Patient's initial sepsis screen is negative. Care prior to arrival: None. 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 - Social history:: Smoking status: Patient uses tobacco products, smokes one pack cigarettes per day. - Ebola Screening: : No symptoms or risks identified at this time. Screenin:34 Abuse screen: Denies threats or abuse. Denies injuries from another. Nutritional lp1 screening: No deficits noted. Tuberculosis screening: No symptoms or risk factors identified. Fall Risk None identified. Assessment: 19:15 Reassessment: Kashif Falk NP at bedside to assess patient. General: Appears lp1 uncomfortable, Behavior is appropriate for age. Pain: Complains of pain in chest Pain does not radiate. Pain began gradually. Neuro: Level of Consciousness is awake, alert, obeys commands, Oriented to person, place, time, situation. Cardiovascular: Patient's skin is warm and dry. Rhythm is sinus rhythm. Respiratory: Respiratory effort is even, Breath sounds are clear bilaterally. GI: Pt is actively vomiting clear fluid, Reports nausea, vomiting. : No signs and/or symptoms were reported regarding the genitourinary system. EENT: No signs and/or symptoms were reported regarding the EENT system. Derm: Skin is intact, Skin is dry, Skin is normal. Musculoskeletal: No deficits noted. 20:15 Reassessment: Patient appears in no apparent distress at this time. Nausea relief at lp1 this time. 21:15 Reassessment: Patient complaint of nausea returning at this time; Continued headache lp1 and neck pain; Provider notified. 22:22 Reassessment: Patient appears in no apparent distress at this time. Reassessment: lp1 Patient resting, eyes closed, respirations unlabored; daughter at bedside. General: Appears comfortable, Behavior is calm. 23:27 Reassessment: Patient and/or family updated on plan of care and expected duration. Pain lp1 level reassessed. Patient states feeling better. Patient states symptoms have improved. Vital Signs: 19:04 BP 155 / 92; Pulse 88; Resp 16; Temp 97.4; Pulse Ox 98% on R/A; la1 19:34 BP 158 / 94; Pulse 79; Resp 18; Pulse Ox 97% on R/A; Weight 57.15 kg (R); Height 5 ft. lp1 4 in. (162.56 cm); 20:00 BP 162 / 95; Pulse 87; Resp 13; Pulse Ox 94% on R/A; lp1 21:00 BP 174 / 90; Pulse 82; Resp 12; Pulse Ox 96% on R/A; lp1 21:45 BP 174 / 94; Pulse 76; Resp 14; Pulse Ox 97% on R/A; Pain 8/10; lp1 22:23 BP 162 / 96; Pulse 81; Resp 14; Pulse Ox 99% on R/A; lp1 23:00 BP 116 / 60; Pulse 77; Resp 13; Pulse Ox 97% on R/A; lp1 23:27 BP 133 / 61; Pulse 72; Resp 12; Pulse Ox 98% on R/A; Pain 4/10; lp1 19:34 Body Mass Index 21.63 (57.15 kg, 162.56 cm) lp1 ED Course: 18:42 Patient arrived in ED. as 18:42 Chandan Tanner MD is Private Physician. as 18:56 Kashif Falk NP is PHCP. pm1 18:56 Bernardo Grewal MD is Attending Physician. pm1 19:03 Triage completed. la1 19:04 Arm band placed on right wrist. la1 19:12 Inserted saline lock: 20 gauge in left antecubital area, using aseptic technique. Blood lp1 collected. 19:15 Eleanor Arauz, RN is Primary Nurse. lp1 19:34 XRAY Chest (1 view) In Process Unspecified. EDMS 19:35 Patient has correct armband on for positive identification. Bed in low position. Call lp1 light in reach. salesperson art objects on. Pulse ox on. NIBP on. 19:35 Patient maintains SpO2 saturation greater than 95% on room air. lp1 21:37 CT completed. Patient tolerated procedure well. Patient moved back from CT. mw3 21:51 CT Head Brain wo Cont In Process Unspecified. EDMS 23:27 No provider procedures requiring assistance completed. IV discontinued, No lp1 redness/swelling at site. Pressure dressing applied. Administered Medications: 19:30 Drug: Zofran 4 mg Route: IVP; Site: left antecubital; lp1 20:30 Follow up: Response: Nausea is decreased lp1 20:54 Drug: NS 0.9% 1000 ml Route: IV; Rate: 1000 ml; Site: left antecubital; lp1 22:45 Follow up: IV Status: Completed infusion; IV Intake: 1000ml lp1 21:13 Drug: Zofran 4 mg Route: IVP; Site: left antecubital; lp1 21:51 Follow up: Response: No change in condition lp1 21:50 Drug: TORadol 30 mg Route: IVP; Site: left antecubital; lp1 22:22 Follow up: Response: Marked relief of symptoms lp1 21:50 Drug: Reglan 10 mg Route: IVP; Site: left antecubital; lp1 22:23 Follow up: Response: Marked relief of symptoms lp1 21:50 Drug: Benadryl 25 mg Route: IVP; Site: left antecubital; lp1 22:23 Follow up: Response: Marked relief of symptoms lp1 Intake: 22:45 IV: 1000ml; Total: 1000ml. lp1 Outcome: 23:01 Discharge ordered by . pm1 23:28 Discharged to home ambulatory, with family. lp1 23:28 Condition: good 23:28 Discharge instructions given to patient, Instructed on discharge instructions, follow up and referral plans. medication usage, Demonstrated understanding of instructions, follow-up care, medications, Prescriptions given X 2. 23:29 Patient left the ED. lp1 Signatures: Dispatcher [employer] EDMS Lisette Cruz Laura, RN RN lp1 Mario Alberto Reyez RN RN la1 Kashif Falk, JE GEOSPATIAL SCIENTIST pm1 Norma Motley mw3
--- NOTE | 2018-11-28 23:03 | EDPHYS ---
Physician Documentation [facility] Name: Sydney Oliveira Age: 53 yrs Sex: Female : 1965 Arrival Date: 11/28/2018 Time: 18:42 Bed 16 Private MD: Chandan Tanner V ED Physician Bernardo Grewal HPI: 11/28 19:25 This 53 yrs old Female presents to ER via Ambulatory with complaints of Chest pm1 Pain, Palpitations, Nausea. 19:25 The patient or guardian reports chest pain that is located primarily in the mid-sternal pm1 area. Onset: this morning. The pain does not radiate. Associated signs and symptoms: Pertinent positives: headache, nausea, palpitations, Pertinent negatives: abdominal pain, cough, shortness of breath, vomiting. The chest pain is described as aching. Duration: The patient or guardian reports a single episode, that is now resolved, this AM. Modifying factors: The symptoms are alleviated by nothing. the symptoms are aggravated by nothing. The patient has not experienced similar symptoms in the past. 19:25 Took Fioricet this AM without improvement in headache. 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 - Social history:: Smoking status: Patient uses tobacco products, smokes one pack cigarettes per day. - Ebola Screening: : No symptoms or risks identified at this time. ROS: 19:25 Constitutional: Negative for fever, chills, and weight loss, Eyes: Negative for injury, pm1 pain, redness, and discharge, ENT: Negative for injury, pain, and discharge, Neck: Negative for injury, pain, and swelling. 19:25 Respiratory: Negative for shortness of breath, cough, wheezing, and pleuritic chest pain. 19:25 Back: Negative for injury and pain, MS/Extremity: Negative for injury and deformity, Skin: Negative for injury, rash, and discoloration. 19:25 Cardiovascular: Positive for chest pain, palpitations, Negative for edema, orthopnea. 19:25 Abdomen/GI: Positive for nausea, Negative for vomiting, diarrhea. 19:25 Neuro: Positive for headache, Negative for numbness, tingling. Exam: 19:25 Constitutional: This is a well developed, well nourished patient who is awake, alert, pm1 and in no acute distress. Head/Face: Normocephalic, atraumatic. Eyes: Pupils equal round and reactive to light, extra-ocular motions intact. Lids and lashes normal. Conjunctiva and sclera are non-icteric and not injected. Cornea within normal limits. Periorbital areas with no swelling, redness, or edema. ENT: Nares patent. No nasal discharge, no septal abnormalities noted. Tympanic membranes are normal and external auditory canals are clear. Oropharynx with no redness, swelling, or masses, exudates, or evidence of obstruction, uvula midline. Mucous membranes moist. Neck: Trachea midline, no thyromegaly or masses palpated, and no cervical lymphadenopathy. Supple, full range of motion without nuchal rigidity, or vertebral point tenderness. No Meningismus. Chest/axilla: Normal chest wall appearance and motion. Nontender with no deformity. No lesions are appreciated. Cardiovascular: Regular rate and rhythm with a normal S1 and S2. No gallops, murmurs, or rubs. Normal PMI, no JVD. No pulse deficits. Respiratory: Lungs have equal breath sounds bilaterally, clear to auscultation and percussion. No rales, rhonchi or wheezes noted. No increased work of breathing, no retractions or nasal flaring. Abdomen/GI: Soft, non-tender, with normal bowel sounds. No distension or tympany. No guarding or rebound. No evidence of tenderness throughout. Back: No spinal tenderness. No costovertebral tenderness. Full range of motion. Skin: Warm, dry with normal turgor. Normal color with no rashes, no lesions, and no evidence of cellulitis. MS/ Extremity: Pulses equal, no cyanosis. Neurovascular intact. Full, normal range of motion. 19:25 Neuro: Orientation: is normal, Motor: is normal, moves all fours, Sensation: is normal, no obvious gross deficits. Vital Signs: 19:04 BP 155 / 92; Pulse 88; Resp 16; Temp 97.4; Pulse Ox 98% on R/A; la1 19:34 BP 158 / 94; Pulse 79; Resp 18; Pulse Ox 97% on R/A; Weight 57.15 kg (R); Height 5 ft. lp1 4 in. (162.56 cm); 20:00 BP 162 / 95; Pulse 87; Resp 13; Pulse Ox 94% on R/A; lp1 21:00 BP 174 / 90; Pulse 82; Resp 12; Pulse Ox 96% on R/A; lp1 21:45 BP 174 / 94; Pulse 76; Resp 14; Pulse Ox 97% on R/A; Pain 8/10; lp1 22:23 BP 162 / 96; Pulse 81; Resp 14; Pulse Ox 99% on R/A; lp1 23:00 BP 116 / 60; Pulse 77; Resp 13; Pulse Ox 97% on R/A; lp1 23:27 BP 133 / 61; Pulse 72; Resp 12; Pulse Ox 98% on R/A; Pain 4/10; lp1 19:34 Body Mass Index 21.63 (57.15 kg, 162.56 cm) lp1 MDM: 19:08 Patient medically screened. pm1 22:59 Data reviewed: vital signs. Counseling: I had a detailed discussion with the patient pm1 and/or guardian regarding: the historical points, exam findings, and any diagnostic results supporting the discharge/admit diagnosis, lab results, radiology results, the need for outpatient follow up, to return to the emergency department if symptoms worsen or persist or if there are any questions or concerns that arise at home. 11/28 18:56 Order name: Basic Metabolic Panel; Complete Time: 20:00 pm1 11/28 18:56 Order name: CBC with Diff; Complete Time: 20:00 pm1 11/28 18:56 Order name: LFT's; Complete Time: 20:00 pm1 11/28 18:56 Order name: Magnesium; Complete Time: 20:00 pm1 11/28 18:56 Order name: NT PRO-BNP; Complete Time: 20:00 pm1 11/28 18:56 Order name: PT-INR; Complete Time: 20:00 pm1 11/28 18:56 Order name: Troponin (emerg Dept Use Only); Complete Time: 20:00 pm11/28 18:56 Order name: XRAY Chest (1 view); Complete Time: 20:00 pm1 11/28 21:17 Order name: CT Head Brain wo Cont pm1 11/28 18:56 Order name: EKG; Complete Time: 18:58 pm11/28 18:56 Order name: Cardiac monitoring; Complete Time: 18:58 pm11/28 18:56 Order name: EKG - Nurse/Tech; Complete Time: 18:58 pm1 11/28 18:56 Order name: IV Saline Lock; Complete Time: 18:58 pm11/28 18:56 Order name: Labs collected and sent; Complete Time: 19:15 pm1 11/28 18:56 Order name: O2 Per Protocol; Complete Time: 18:59 pm1 11/28 18:56 Order name: O2 Sat Monitoring; Complete Time: 18:59 pm1 Administered Medications: 19:30 Drug: Zofran 4 mg Route: IVP; Site: left antecubital; lp1 20:30 Follow up: Response: Nausea is decreased lp1 20:54 Drug: NS 0.9% 1000 ml Route: IV; Rate: 1000 ml; Site: left antecubital; lp1 22:45 Follow up: IV Status: Completed infusion; IV Intake: 1000ml lp1 21:13 Drug: Zofran 4 mg Route: IVP; Site: left antecubital; lp1 21:51 Follow up: Response: No change in condition lp1 21:50 Drug: TORadol 30 mg Route: IVP; Site: left antecubital; lp1 22:22 Follow up: Response: Marked relief of symptoms lp1 21:50 Drug: Reglan 10 mg Route: IVP; Site: left antecubital; lp1 22:23 Follow up: Response: Marked relief of symptoms lp1 21:50 Drug: Benadryl 25 mg Route: IVP; Site: left antecubital; lp1 22:23 Follow up: Response: Marked relief of symptoms lp1 Disposition: 11/29 07:15 Co-signature as Attending Physician, Bernardo Grewal MD. ma2 Disposition: 11/28/18 23:01 Discharged to Home. Impression: Chest pain, unspecified, Palpitations, Headache. - Condition is Stable. - Discharge Instructions: Nonspecific Chest Pain, General Headache Without Cause, Palpitations. - Prescriptions for Fiorinal 50- 325-40 mg Oral Capsule - take 1 capsule by ORAL route every 4 hours As needed - not to exceed 6 capsules per day; 20 capsule. Zofran 4 mg Oral Tablet - take 1 tablet by ORAL route every 12 hours As needed; 20 tablet. - Medication Reconciliation Form, Thank You Letter, Antibiotic Education, Prescription Opioid Use form. - Follow up: Emergency Department; When: As needed; Reason: Worsening of condition. Follow up: Private Physician; When: 2 - 3 days; Reason: Recheck today's complaints, Continuance of care, Re-evaluation by your physician. - Problem is new. - Symptoms have improved. Signatures: Dispatcher [employer] EDMS Eleanor Arauz RN RN lp1 Mario Alberto Reyez RN RN la1 Kashif Falk, COLD STORAGE WORKER COLD STORAGE WORKER pm1 Bernardo Grewal MD MD ma2 Corrections: (The following items were deleted from the chart) 11/28 23:02 23:01 11/28/2018 23:01 Discharged to Home. Impression: Chest pain, unspecified. pm1 Condition is Stable. Forms are Medication Reconciliation Form, Thank You Letter, Antibiotic Education, Prescription Opioid Use. Follow up: Emergency Department; When: As needed; Reason: Worsening of condition. Follow up: Private Physician; When: 2 - 3 days; Reason: Recheck today's complaints, Continuance of care, Re-evaluation by your physician. Problem is new. Symptoms have improved. pm1 23:03 23:02 11/28/2018 23:01 Discharged to Home. Impression: Chest pain, unspecified; pm1 Palpitations. Condition is Stable. Forms are Medication Reconciliation Form, Thank You Letter, Antibiotic Education, Prescription Opioid Use. Follow up: Emergency Department; When: As needed; Reason: Worsening of condition. Follow up: Private Physician; When: 2 - 3 days; Reason: Recheck today's complaints, Continuance of care, Re-evaluation by your physician. Problem is new. Symptoms have improved. pm1 23:29 23:03 11/28/2018 23:01 Discharged to Home. Impression: Chest pain, unspecified; lp1 Palpitations; Headache. Condition is Stable. Discharge Instructions: Nonspecific Chest Pain, Palpitations. Prescriptions for Fiorinal 50-325-40 mg Oral Capsule - take 1 capsule by ORAL route every 4 hours As needed - not to exceed 6 capsules per day; 20 capsule, Zofran 4 mg Oral Tablet - take 1 tablet by ORAL route every 12 hours As needed; 20 tablet. and Forms are Medication Reconciliation Form, Thank You Letter, Antibiotic Education, Prescription Opioid Use. Follow up: Emergency Department; When: As needed; Reason: Worsening of condition. Follow up: Private Physician; When: 2 - 3 days; Reason: Recheck today's complaints, Continuance of care, Re-evaluation by your physician. Problem is new. Symptoms have improved. pm1
[2018-11-28 23:57] VITALS: TEMP 97.4
[2018-11-29 00:27] VITALS: BP 174/94; O2SAT 97
--- NOTE | 2018-11-29 13:19 | EKG ---
Test Date: 2018-11-28 Test Time: 18:56:24 Service Delivery Supervisor: MEASUREMENT RESULTS: Intervals: Rate: 79 IA: 152 QRSD: 86 QT: 404 QTc: 463 [place]: P: 72 IA: 152 QRS: 72 T: 66 INTERPRETIVE STATEMENTS: Sinus rhythm with occasional premature ventricular complexes Minimal voltage criteria for LVH, may be normal variant Septal infarct, age undetermined Abnormal ECG Compared to ECG 08/24/2017 21:01:11 Ventricular premature complex(es) now present Left ventricular hypertrophy now present Myocardial infarct finding now present Electronically Signed On 11-29-18 13:18:30 CDT by Ted Monsivais
--- NOTE | 2018-11-30 10:57 | RAD REPORT ---
EXAM DESCRIPTION: CT - Head Brain Wo Cont - 11/28/2018 9:51 pm CLINICAL HISTORY: HEADACHE COMPARISON: None. TECHNIQUE: CT HEAD WITHOUT IV CONTRAST on 11/28/2018 9:17 PM CDT This exam was performed according to our departmental dose-optimization program, which includes autom ated exposure control, adjustment of the mA and/or kV according to patient size and/or use of iterati ve reconstruction technique. FINDINGS: There is no acute hemorrhage, mass effect or midline shift. Garcia-white differentiation is preserved. There is no hydrocephalus. There is no significant volume loss for age. The calvarium is intact. Orbits and globes are unremarkable. The paranasal sinuses are clear. Mastoid air cells are clear. IMPRESSION: No acute intracranial findings. Electronically signed by: Renato Pappas MD 11/28/2018 10:26 PM CDT Due to temporary technical issues with the PACS/Fluency reporting system, reports are being signed by the in house radiologist as a courtesy to ensure prompt reporting. The interpreting radiologist is f ully responsible for the content of the report.
== END 2018-11-28 23:29 | disposition home or self-care (01) ==
LOC: ER 18:40
DX: R07.9 Chest pain, unspecified (principal); R00.2 Palpitations; R51 Headache; I10 Essential (primary) hypertension; F41.8 Other specified anxiety disorders; F17.210 Nicotine dependence, cigarettes, uncomplicated; Z88.6 Allergy status to analgesic agent; Z88.0 Allergy status to penicillin
CPT/HCPCS: 96361; 93005; 85025; 80048; 36415; 83735; 85610; 80076; 84484; 83880; 70450; 71045; 96375; 96374; 99285; J2765; J7030; J2405 ×2

== ENCOUNTER 2020-02-29 08:10 | Emergency (ER) | payer BC, SELFPAY ==
--- OUTSIDE RECORDS SUMMARY | 2020-02-29 08:30 | XMS REPORT | Continuity of Care Document ---
:1965 Author Organization [facility] t Address [address] [place] [address] Care Team Providers Name Role Phone Javier Carlin MD Attending Clinician Ry Mckay Attending Clinician Problems Condition Condition Condition Status Onset Resolution Last Treating Co mments Source Name Details Category Date Date Treatment Clinician Date M54.16 - Diagnosis Active 2018-05-14 M emoria RADICULOPA 3-04 10:32:00 l THY, M54.16 - 00:01: Feliberto n LUMBAR RADICULOPA 00 REGION THY, LUMBAR REGION Active 05/11/2018 MICHAEL Dunn Anxiety Problem Resolve 2018-05-17 Mem oria (finding) d 00:04:26 l Anxiety Shaun (finding) Resolved Problem 05/17/2018 [facility] OPIFroylan Shaun Carpal Problem Resolve 2018-05-17 Patricio eloise tunnel d 00:04:26 l syndrome Carpal Feliberto n (disorder) tunnel syndrome (disorder) [facility] MICHAEL Reaann Chronic Problem Resolve 2018-05-17 Mem oria headache d 00:04:26 l disorder Chronic Daniella nn (disorder) headache disorder (disorder) Resolved [facility] OPID Shaun Degenerati Problem Resolve 2018-05-17 Memoria on of d 00:04:26 l cervical Shaun interverte Degenerati bral disc on of (disorder) cervical interverte bral disc (disorder) Resolved Problem 05/17/2018 [facility] MICHAEL Shaun Hypertensi Problem Resolve 2018-05-17 Memoria ve d 00:04:26 l disorder, [place] systemic Hypertensi arterial ve (disorder) disorder, systemic arterial (disorder) Resolved Problem 05/17/2018 [facility] MICHAEL Shaun Insomnia Problem Resolve 2018-05-17 Me moria (disorder) d 00:04:26 l Insomnia Feliberto n (disorder) Resolved Problem 05/17/2018 [facility] OPID Shaun Memory Problem Resolve 2018-05-17 Patricio eloise impairment d 00:04:26 l (finding) Memory Daniella nn impairment (finding) Resolved Problem 05/17/2018 [facility] MICHAEL Shaun Ventricula Problem Resolve 2018-05-17 Memoria r d 00:04:26 l premature [place] beats Ventricula (disorder) r premature beats (disorder) Resolved Problem 05/17/2018 [facility] OPID [place] Slurred Problem Resolve 2018-05-17 Mem oria speech d 00:04:26 l (finding) Slurred Herm brett speech (finding) Resolved Problem 05/17/2018 [facility] OPID [place] Tinnitus Problem Resolve 2018-05-17 Me moria (finding) d 00:04:26 l Tinnitus Feliberto n (finding) Resolved Problem 05/17/2018 [facility] OPID [place] Allergies, Adverse Reactions, Alerts Allergy Allergy Status Severity Reaction(s) Onset Inactive Treating Comm ents Source Name Type Date Date Clinician penicill penicill Active Memori a ins ins l [place] codeine codeine Active Memoria l [place] morphine morphine Active Memori a l Shaun Vicodin Vicodin Active Memoria l [place] Social History Social Habit Start Date Stop Date Quantity Comments Source Social History 2015-11-21 2015-11-21 Ryder bentley 15:38:19 15:38:19 Medications Ordered Filled Start Stop Current Ordering Indication Dosage Frequency Signature Comments Components Source Medication Medication Date Date Medication? Clinician (SIG) Name Name Tylenol 2019-0 Yes PO, 0 Memoria 3-07 Refill(s) l 20:24: Shaun 00 ondansetron 2018- Yes 4 mg = 1 Me moria 4 mg oral 3-07 tab, PO, l tablet 20:24: Q8H, 0 Shaun 00 Refill(s) Naltrexone 2019-0 Yes 0 Memoria 3-07 Refill(s) l 20:24: Shaun 00 FLUoxetine 2019-0 Yes 40 mg = 1 Me moria 40 mg oral 3-07 cap, PO, l capsule 20:24: Daily, 0 Feliberto n 00 Refill(s) Vital Signs Vital Name Observation Time Observation Value Comments Source Height 2018-05-14 20:22:00 161.29 cm [facility] Weight 2018-05-14 20:22:00 [facility] BMI Calculated 2018-05-14 20:22:00 Memori al [place] Systolic (mm Hg) 2018-05-14 20:22:00 Patricio rial Shaun Diastolic (mm Hg) 2018-05-14 20:22:00 [facility] orial Shaun Temperature Oral (F) 2018-05-14 20:22:00 99.0 F [facility] Heart Rate 2018-05-14 20:22:00 [facility] Procedures Procedure Date / Time Performing Clinician Source Performed Cholecystectomy 2009-12-08 05:00:[address] [facility] Her fishman Hysterectomy 2008-12-08 05:00:[address] [facility] Her fishman Bunionectomy 2003-07-09 05:00:[address] [facility] Her fishman Removal of ectopic 1997-12-08 05:00:00 [facility] from fallopian tube Appendectomy 1994-06-08 06:00:[address] [facility] Her fishman Cervical spinal fusion [facility] Lumbar discectomy [facility] nn Encounters Start End Encounter Admission Attending Care Care Encounter Source Date/Time Date/Time Type Type Clinicians Facility Department ID 2020-02-07 2020-02-07 Office SAEED Carlin [id number] 11:24:44 12:11:13 Visit Javier Hernandez [id number] Gurdeep [id number] Yamel [id number] [address] 2018-05-14 2018-05-14 Outpatient Antwan Mckay AMANDASCHASHU [id number] 11:40:00 23:59:59 Elian 2018-05-14 2018-05-14 Outpatient Antwan Mckay [facility] [id number] 10:22:00 23:59:00 [place] 2018-05-04 [facility] [id number] 12:00:00 23:59:59 03 Results This patient has no known results.
--- OUTSIDE RECORDS SUMMARY | 2020-02-29 08:30 | XMS REPORT | Continuity of Care Document ---
:1965 Author Organization Bundle Information Sales Layer Care Team Providers Name Role Phone [facility] [employer] Unavailable Un available Problems Problem Status Onset Classification Date Comments Sourc e Date Reported M54.16 - Active 05/12/19 OPID RADICULOPATHY, 19 Daniella nn LUMBAR REGION Anxiety (finding) Resolved Problem 05/17/2018 [facility] is[facility] Neuro, OPID Shaun Carpal tunnel Resolved Problem 05/17/2018 Misch er syndrome Neuro, (disorder) OPID [place] Chronic headache Resolved Problem 05/17/2018 Mi raz disorder Neuro, (disorder) OP[facility] [place] 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, intervertebral OPID disc (disorder) Herm brett Hypertensive Resolved Problem 05/17/2018 Mische r disorder, Neuro, systemic arterial OP ID (disorder) [place] Insomnia Resolved Problem 05/17/2018 Mischer (disorder) Neuro, OPID Shaun Memory impairment Resolved Problem 05/17/2018 M ischer (finding) Neuro, OPID Shaun Ventricular Resolved Problem 05/17/2018 Mischer premature beats Neur o,MH (disorder) OPID [place] Slurred speech Resolved Problem 05/17/2018 Misc her (finding) Neuro, OPID Shaun Tinnitus Resolved Problem 05/17/2018 Mischer (finding) Neuro, OPID Shaun Medications Medication Details Route Status Patient Ordering Order Source Instructions Provider Date Tylenol PO, 0 Active 05/15/19 Mischer Refill(s) 19 Neuro ondansetron 4 4 mg = 1 Active 05/15/19 Mischer mg oral tablet tab, PO, 19 Neuro Q8H, 0 Refill(s) Naltrexone 0 Active 05/15/19 Mischer Refill(s) 19 Neuro FLUoxetine 40 40 mg = 1 Active 05/15/19 Mischer mg oral cap, PO, 19 Neuro capsule Daily, 0 Refill(s) Allergies, Adverse Reactions, Alerts Substance Category Reaction Severity Reaction Status Date Comments S ource type Reported penicillins Assertion Drug Active MH OPID allergy [place] codeine Assertion Drug Active MH OPI D allergy [place] morphine Assertion Drug Active MH OP ID allergy [place] Vicodin Assertion Drug Active MH OPI D allergy Shaun Immunizations No Data Provided for This Section Results No Data Provided for This Section Pathology Reports No Data Provided for This Section Diagnostic Reports Report Value Date Source Spine lumbar EXAM: XR LUMBAR SPINE 4 VIEWS 05/14/2018 MH OPID [place] flex/ext 2 view DX DATE: 05/14/2018 10:28 VACUUM CASTER INDICATION: - Standing AP/L ateral and Standing Flex/Ext;M54.16 Radiculopathy, lumbar region COMPARISON: None TECHNIQUE: AP view, lateral views in neutral position, flexion and extension, of the lumbar spine FINDINGS: 5 lumbar type, non -rib bearing vertebral bodies are present. Satisfactory alignment lumbar spine. Vertebral body heights are maintained. Severe disc height loss with mild endplate sclerosis an d small vertebral osteophyte s at L4-L5 and L5-S1. Moderate facet arthropathy [...] Date Comments Source Height 161.29 cm 05/14/2018 [facility] Weight 55.597 05/14/2018 [facility] BMI Calculated 21.37 05/14/2018 [facility] Systolic (mm Hg) 139 05/14/2018 [facility] P[facility] ro Diastolic (mm Hg) 89 05/14/2018 [facility] u[facility] Temperature Oral (F) 99.0 F 05/14/2018 [facility] Heart Rate 90 05/14/2018 [facility] Encounters Location Location Encounter Encounter Reason Attending ADM CT Stat us Source Details Type Number For Provider Date Date Visit Outpatient [id number] MARLENE MARCOS 11/20 Activ e Shaun MNA Spine Phone [id number] 05/04 05/[address] [facility] Message /2018 Neuro Outpatient [id number] ROGER GANT 05/14 [id number] Roger Gant 05/14 05/15 MH [facility] Outpatient [facility] /2018 [facility] Shaun MNA Spine Outpatient [id number] Roegr Gant 05/14 05/15 [facility] /2018 Neuro Procedures Procedure Code Date Perfomer Comments Source Cholecystectomy [id number] 12/08/2009 [facility], OPIFroylan Dunn Hysterectomy [id number] 12/08/2008 [facility], OPIFroylan Dunn Bunionectomy [id number] 07/09/2003 [facility], OPIFroylan Dunn Removal of ectopic [id number] 12/08/1997 Mische r from Neuro, fallopian tube NHAND Daniella nn Appendectomy [id number] 06/08/1994 [facility], OPIFroylan Dunn Cervical spinal [id number] [facility] fusion Neuro, OPIFroylan Dunn Lumbar discectomy [id number] [facility], OPIFroylan Dunn Assessment and Plan No Data Provided for This Section Plan of Care No Data Provided for This Section Social History Social History Date Source Social History TypeResponse 11/21/2015 [facility] o Alcohol Current, Frequency: 1-2 times per month. Smoking Status Current every day smoker; Type: Cigarett es; Ready to change: No; Concerns about tobacco use in household: No; Exposure to Tobacco Smoke None; Cigarette Smoking Last 365 Days Yes; Reg Smoking Cessation Counseling No entered on: 05/14/18 Social History TypeResponse 11/21/2015 OPID Herm brett Alcohol Current, Frequency: 1-2 times per month. Smoking Status Current every day smoker; Type: Cigarett es; Ready to change: No; Concerns about tobacco use in household: No; Exposure to Tobacco Smoke None; Cigarette Smoking Last 365 Days Yes; Reg Smoking Cessation Counseling No entered on: 05/14/18 Family History No Data Provided for This Section Advance Directives No Data Provided for This Section Functional Status No Data Provided for This Section
--- OUTSIDE RECORDS SUMMARY | 2020-02-29 08:30 | XMS REPORT | Summary of Care ---
:1965 Author Organization [facility] - Health Address [address] [place] [address] Care Team Providers Name Role Phone [place] Primary Care Provider Encounter Details Date Type Department Care Team Description 11/03/2019 Orders Only [facility] Doctor Unassigned, No [address] [facility] [place] [address] [address] [place] [address] Allergies Active Allergy Reactions Severity Noted Date Comments Codeine Hives, Itching, Shortness of Breath, Tachycardia Other - See comments Morphine Hives, Itching, Shortness of Breath, tachycardia Other - See comments Penicillins Hives, Itching, Shortness of Breath, Tachycardia Other - See comments documented as of this encounter (statuses as of 12/01/2019) Medications Medication Sig Dispensed Refills Start Date End Date Status FLUoxetine 40 mg TAKE ONE CAPSULE BY 0 12/07/2017 Active capsule MOUTH IN THE MORNING LORazepam 0.5 mg TAKE 1 TABLET BY 0 12/07/2017 Active tablet MOUTH TWICE A DAY NEEDED FOR ANXIETY losartan 100 mg losartan 100 mg 0 Active tablet tablet naltrexone HCl Take 1 TAB-CAP/M2 0 Active (NALTREXONE ORAL) by mouth at bedtime. documented as of this encounter (statuses as of 12/01/2019) Active Problems Not on filedocumented as of this encounter (statuses as of 12/01/2019) Social History Tobacco Use Types Packs/Day Years Used Date Current Every Day Smoker Alcohol Use Drinks/Week oz/Week Comments No Sex Assigned at Date Recorded Not on file COVID-19 Exposure Response Date Recorded In the last month, have you been in contact with No / Unsure 11/19/2019 3:51 PM CDT someone who was confirmed or suspected to have Coronavirus / COVID-19? documented as of this encounter Last Filed Vital Signs Not on filedocumented in this encounter Plan of Treatment Health Maintenance Due Date Last Done Comments PNEUMOCOCCAL 0-64 YEARS COMBINED SERIES (1 of 3 - 1973 PCV13) DTaP,Tdap,and Td Vaccines (1 - Tdap) 1986 PAP SMEAR 1988 Breast Cancer Screening (MAMMOGRAM) 2007 COLON CANCER SCREENING ANNUAL FIT/FOBT 2017 COLON CANCER SCREENING FIT DNA EVERY 3 YEARS 2017 COLON CANCER SCREENING SIGMOIDOSCOPY EVERY 5 YEARS 2017 COLONOSCOPY 2017 Colorectal Cancer Screening 2017 Zoster Recombinant Vaccine (SHINGRIX) (1 of 2) 2017 INFLUENZA VACCINE (#1) 2019 Depression Screening 11/18/2020 11/19/2019 documented as of this encounter Procedures Procedure Name Priority Date/Time Associated Diagnosis Comme nts SCANNED LAB RESULTS Routine 11/03/2019 12:01 AM CDT documented in this encounter Results SCANNED LAB RESULTS (11/03/2019 12:01 AM CDT) Specimen Performing Organization Address City/State/Zipcode Phone Number HIM documented in this encounter Insurance Payer Benefit Plan Subscriber ID Effective Dates Phone Address Type / Group BCBS OF [facility] [id number] 2015-Rafael [phone] [address] PPO/POS [place] - OUT OF t 87 [id number] [place] [address] documented as of this encounter
--- OUTSIDE RECORDS SUMMARY | 2020-02-29 08:31 | XMS REPORT | Summary of Care ---
:1965 Author Organization [address] [address] Care Team Providers Name Role Phone [place] Primary Care Provider Reason for Visit Reason Comments Notification Encounter Details Date Type Department Care Team Description 12/13/2019 Telephone [facility] Neurology- Javier Carlin MD Notification [address] [place] [address] [place] [address] [place] [address] Allergies Active Allergy Reactions Severity Noted Date Comments Codeine Hives, Itching, Shortness of Breath, Tachycardia Other - See comments Morphine Hives, Itching, Shortness of Breath, tachycardia Other - See comments Penicillins Hives, Itching, Shortness of Breath, Tachycardia Other - See comments documented as of this encounter (statuses as of 12/14/2019) Medications Medication Sig Dispensed Refills Start Date End Date Status FLUoxetine 40 mg capsule TAKE ONE 0 12/07/2017 Active CAPSULE BY MOUTH IN THE MORNING LORazepam 0.5 mg tablet TAKE 1 TABLET 0 12/07/2017 Active BY MOUTH TWICE A DAY NEEDED FOR ANXIETY losartan 100 mg tablet losartan 100 mg 0 Active tablet naltrexone HCl Take 1 0 Activ e (NALTREXONE ORAL) TAB-CAP/M2 by mouth at bedtime. HYDROmorphone 2 mg tablet Take 2 mg by 0 10/20/2019 Active mouth daily. hydrOXYchloroQUINE 200 mg Take 400 mg by 0 0 Active tablet mouth daily. metoclopramide HCl 10 mg 0 11/17/2019 Active tablet documented as of this encounter (statuses as of 12/14/2019) Active Problems Not on filedocumented as of this encounter (statuses as of 12/14/2019) Social History Tobacco Use Types Packs/Day Years Used Date Current Every Day Smoker Smokeless Tobacco: Never Used Alcohol Use Drinks/Week oz/Week Comments No Sex Assigned at Date Recorded Not on file COVID-19 Exposure Response Date Recorded In the last month, have you been in contact with No / Unsure 11/19/2019 3:51 PM CDT someone who was confirmed or suspected to have Coronavirus / COVID-19? documented as of this encounter Last Filed Vital Signs Not on filedocumented in this encounter Miscellaneous Notes Telephone Encounter - Hilda Salazar LVN - 12/14/2019 2:29 PM CDTDrTj Carlin, Spoke to patient and she said [employer] would be contacting us directly for a copy of her records from [id number]. Just FYI. elephone Encounter - Hilda Salazar LVN - 12/14/2019 2:05 PM CDTAttempted to contact patient to verify nothing was needed from us. Left VM with direct clinic numberto call back if we can be of any further assistance. 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
--- OUTSIDE RECORDS SUMMARY | 2020-02-29 08:31 | XMS REPORT | Summary of Care ---
:1965 Author Organization [address] [address] Care Team Providers Name Role Phone [place] Primary Care Provider Reason for Visit Reason Comments Notification Encounter Details Date Type Department Care Team Description 12/13/2019 Telephone [facility] Neurology- Javier Carlin MD Notification [address] [place] [address] [place] [address] [place] [address] Allergies Active Allergy Reactions [...] we can be of any further assistance. Closing encounter. 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
--- OUTSIDE RECORDS SUMMARY | 2020-02-29 08:31 | XMS REPORT | Summary of Care ---
:1965 Author Organization [facility] Address [address] [place] [address] Care Team Providers Name Role Phone [place] Primary Care Provider Reason for Visit Reason Comments Forms Encounter Details Date Type Department Care Team Description 11/25/2019 Telephone [facility] Javier Carlin MD Forms Neurology-[address] [place] [address] [address] [place] [address] [phone] Allergies Active Allergy Reactions Severity Noted Date [...] Encounter - Hilda Salazar LVN - 12/14/2019 2:06 PM CDTPatient returned call to clinic and stated in another encounter that no paperwork was needed, office would contact her directly. elephone Encounter - Hilda Salazar LVN - 12/13/2019 9:21 AM CDTAttempted to contact patient. Left VM with direct clinic number. elephone Encounter - Hilda Salazar LVN - 12/06/2019 9:18 AM CDTAttempted to contact patient. Left VM with direct clinic number. Telephone Encounter - Ap Gracia - 11/26/2019 11:43 AM CDJoseph Randal Oliveira is a 54 year old female is calling stating she need diagnosis paperwork for social security . Telephone Encounter - Marci Man - 11/25/2019 3:35 PM CDJoseph Randal Oliveira is a 54 year old female is calling stating she need diagnosis paperwork for socialsecurity documented in this encounter Plan of Treatment [...] Phone Address Type / Group BCBS OF [employer] [place] [id number] 2015-Rafael [phone] [address] PPO/POS [place] - OUT OF t 87 [id number] [place] [address] documented as of this encounter
--- OUTSIDE RECORDS SUMMARY | 2020-02-29 08:31 | XMS REPORT | Summary of Care ---
:1965 Author Organization [facility] Address [address] [place] [address] Care Team Providers Name Role Phone [place] Primary Care Provider Reason for Visit Reason Comments Follow-up test results Encounter Details Date Type Department Care Team Description 02/07/2020 Office Visit [facility] Javier Carlin Radiculopath y of cervical spine (Primary Dx); Neurology-Mary Cervantes MD Lumbar radiculopathy; [facility] [address] cerv[address] al spinal [address], [address] [facility] [place] [phone] Allergies Active Allergy Reactions Severity Noted Date Comments Codeine Hives, Itching, Shortness of Breath, Tachycardia Other - See comments Morphine Hives, Itching, Shortness of Breath, tachycardia Other - See comments Penicillins Hives, Itching, Shortness of Breath, Tachycardia Other - See comments documented as of this encounter (statuses as of 02/18/2020) Medications Medication Sig Dispensed Refills Start End Date Status Date FLUoxetine 40 mg TAKE ONE 0 Act lore capsule CAPSULE BY 8 MOUTH IN THE MORNING LORazepam 0.5 mg TAKE 1 0 Act lore tablet TABLET BY 8 MOUTH TWICE A DAY NEEDED FOR ANXIETY losartan 100 mg tablet losartan 100 0 Active mg tablet naltrexone HCl Take 1 0 Activ e (NALTREXONE ORAL) TAB-CAP/M2 by mouth at bedtime. HYDROmorphone 2 mg Take 2 mg by 0 Active tablet mouth daily. 0 hydrOXYchloroQUINE 200 Take 400 mg 0 Active mg tablet by mouth 0 daily. metoclopramide HCl 10 0 Active mg tablet 0 gabapentin ER 600 mg Take 1 30 tablet 2 Active tablet, extended tablet by 0 release 24 mouth daily. hrIndications: Radiculopathy of cervical spine, Lumbar radiculopathy, S/P cervical spinal fusion gabapentin ER 300 mg Take by 0 02/07/20 Discontinued tablet, extended mouth daily. 20 (Dose release 24 hr adjust ment) documented as of this encounter (statuses as of 02/18/2020) Active Problems Not on filedocumented as of this encounter (statuses as of 02/18/2020) Social History Tobacco Use Types Packs/Day Years Used Date Current Every Day Smoker Smokeless Tobacco: Never Used Alcohol Use Drinks/Week oz/Week Comments No Sex Assigned at Date Recorded Not on file COVID-19 Exposure Response Date Recorded In the last month, have you been in contact with No / Unsure 02/07/2020 11:23 AM [employer] someone who was confirmed or suspected to have Coronavirus / COVID-19? documented as of this encounter Last Filed Vital Signs Vital Sign Reading Time Taken Comments Blood Pressure 158/98 02/07/2020 11:37 pt states she d idnt AM [employer] take pain medica tion or meds this AM Pulse 91 02/07/2020 11:35 AM [employer] Temperature - - Respiratory Rate - - Oxygen Saturation 100% 02/07/2020 11:35 AM [employer] Inhaled Oxygen - - Concentration Weight 54.4 kg (120 lb) 02/07/2020 11:35 AM [employer] Height 152.4 cm (5') 02/07/2020 11:35 AM [employer] Body Mass Index 23.44 02/07/2020 11:35 AM [employer] documented in this encounter Progress Notes Javier Cralin MD - 02/07/2020 11:20 AM CST HISTORY OF PRESENT ILLNESS: Sydney Oliveria is a 54 year old female. CC: chronic pain, lumbar and cervical. S/p cervical surgery. Unfortunately the patientis suffering with chronic pain secondary to her cervical and lumbar spines.She is status post surgery in both areas, and she did have EMG study done on 01/26. The report was reviewed with her and the conclusions are below. The issue is whether or not she might qualify for disa bility. EMG study 01/27/20 There is electrophysiological evidence of 1. Chronic left C5-7 cervical radiculopathy without active denervation. 2. Chronic left L4-S1 lumbosacral radiculopathy without active denervation. PMH: Chronic pain spinal axis. Current Outpatient Medications: gabapentin ER 600 mg tablet, extended release 24 hr, Take 1 tablet by mouth daily., Disp: 30 tablet, Rfl: 2 HYDROmorphone 2 mg tablet, Take 2 mg by mouth daily., Disp: , Rfl: hydrOXYchloroQUINE 200 mg tablet, Take 400 mg by mouth daily., Disp: , Rfl: metoclopramide HCl 10 mg tablet, , Disp: , Rfl: FLUoxetine 40 mg capsule, TAKE ONE CAPSULE BY MOUTH IN THE MORNING, Disp: , Rfl: 0 LORazepam 0.5 mg tablet, TAKE 1 TABLET BY MOUTH TWICE A DAY NEEDED FOR ANXIETY, Disp: , Rfl:0 losartan 100 mg tablet, losartan 100 mg tablet, Disp: , Rfl: naltrexone HCl (NALTREXONE ORAL), Take 1 TAB-CAP/M2 by mouth at bedtime., Disp: , Rfl: No family history on file. Social History Socioeconomic History Marital status: Spouse name: Not on file Number of children: Not on file Years of education: Not on file Highest education level: Not on file Occupational History Not on file Social Needs Financial resource strain: Not on file Food insecurity Worry: Not on file Inability: Not on file Transportation needs Medical: Not on file Non-medical: Not on file Tobacco Use Smoking status: Current Every Day Smoker Smokeless tobacco: Never Used Substance and Sexual Activity Alcohol use: No Drug use: No Sexual activity: Not on file Lifestyle Physical activity Days per week: Not on file Minutes per session: Not on file Stress: Not on file Relationships Social connections Talks on phone: Not on file Gets together: Not on file Attends methodist service: Not on file Active member of club or organization: Not on file Attends meetings of clubs or organizations: Not on file Relationship status: Not on file Intimate partner violence Fear of current or ex partner: Not on file Emotionally abused: Not on file Physically abused: Not on file Forced sexual activity: Not on file Other Topics Concern Not on file Social History Narrative Not on file Vital signs: BP (!) 158/98 (BP Location: Right arm, Patient Position: Sitting, BP CUFF SIZE: Adult Medium) | Pulse 91 | Ht 5' (1.524 m) | Wt 120 lb (54.4 kg) | SpO2 100% | BMI 23.44 kg/m Mental Status: Well-kept and appears stated age. Alert and oriented times three, cooperative during the exam. Attention and concentration normal, fund of information normal, affect/mood normal and relaxed. No new loss of short term memory. General findings: EOMI/VFFTC/PERRL. No facial asymmetry. No new focal weakness of arms, UE tone unchanged. No new focal weakness of legs, LE tone unchanged. No tremors, no ataxia of arms/legs. Normal gait, normal station. With cervical and lumbar flexion and extension, significant pain. Muscle tightness as well in those areas with palpation. With lateral rotation of the cervical spine there is also significant pain. ASSESSMENT AND RECOMMENDATIONS: ICD-10-CM ICD-9-CM 1. Radiculopathy of cervical spine M54.12 723.4 2. Lumbar radiculopathy M54.16 724.4 3. S/P cervical spinal fusion Z98.1 V45.4 Patient does indeed have chronic pain in these areas despite surgical intervention. I don't think the situation is going to resolve, she does have pain management but unfortunately the surgery has not helped with pain control which would have been ideal. She is uncomfortable in sitting and standing for prolonged periods of time, she was asking me if I thought she would qualify for disability and I would say that she is probably at maximum medical improvement at this point. I don't see how she could function in a work environment secondary to the pain. Medication list was reviewed. No changes were made. Creation of the note was aided by utilizing a cut/paste operation of text from a Microsoft Word template created with [employer]. The text was dictated into the template via Dragon Naturally Speaking. [employer] documented in this encounter Plan of Treatment Health Maintenance Due Date Last Done Comments PNEUMOCOCCAL 0-64 YEARS COMBINED SERIES ( - 1973 PCV13) DTaP,Tdap,and Td Vaccines (1 [...] Results Not on filedocumented in this encounter Visit Diagnoses Diagnosis Radiculopathy of cervical spine - Primar y Brachial neuritis or radiculitis nos Lumbar radiculopathy Thoracic or lumbosacral neuritis or radi culitis, unspecified S/P cervical spinal fusion Arthrodesis status documented in this encounter Insurance Payer Benefit Plan Subscriber ID Effective Dates Phone Address Type / Group BCBS OF [facility] [id number] 2015-Rafael [phone] [address] PPO/POS [place] - OUT OF t 87 [id number] [place] [address] documented as of this encounter"
--- OUTSIDE RECORDS SUMMARY | 2020-02-29 08:31 | XMS REPORT | Summary of Care ---
:1965 Author Organization [facility] Address [address] [place] [address] Care Team Providers Name Role Phone [place] Primary Care Provider Reason for Visit Reason Comments Appointment EMG Encounter Details Date Type Department Care Team Description 01/07/[address] [facility] Javier Carlin Appoin tment (EMG) Neurology-Mary GODINEZ [address] [place] [address], [address] [place] [address]. [address] [place] [address] [phone] Allergies Active Allergy Reactions Severity Noted Date Comments Codeine Hives, Itching, Shortness of Breath, Tachycardia Other - See comments Morphine Hives, Itching, Shortness of Breath, tachycardia Other - See comments Penicillins Hives, Itching, Shortness of Breath, Tachycardia Other - See comments documented as of this encounter (statuses as of 01/11/2020) Medications Medication Sig Dispensed Refills Start Date [...] as of this encounter (statuses as of 01/11/2020) Active Problems Not on filedocumented as of this encounter (statuses as of 01/11/2020) Social History Tobacco Use Types Packs/Day Years Used Date Current Every Day Smoker Smokeless Tobacco: Never Used Alcohol Use Drinks/Week oz/Week Comments No Sex Assigned at Date Recorded Not on file documented as of this encounter Last Filed Vital Signs Not on filedocumented in this encounter Miscellaneous Notes Telephone Encounter - Hilda Salazar LVN - 01/11/2020 11:35 AM CSTSpoke to patient and she stated it was scheduled yesterday for 01-27-20. elephone Encounter - Luz Barrios - 01/07/2020 4:25 PM Radha Randal Oliveira is a 54 year old female calling to get EMG scheduled. States she cant get a hold of EMG clinic at # [phone], she leaves a message and no one calls her back. Patient was given an additional number to call to get EMG scheduled at [phone]. Please call patient back to schedule at [phone] (home). documented in this encounter Plan of Treatment Date Type Specialty Care Team Description 01/27/2020 Appointment Electroneurodiagnostic (Veneer Drier), Adc Emg/Ncv Testing Health Maintenance Due Date Last Done Comments [...] Phone Address Type / Group BCBS OF [facility] [id number] 2015-Rafael [phone] [address] PPO/POS [place] - OUT OF t [id number] [place] [address] documented as of this encounter
--- OUTSIDE RECORDS SUMMARY | 2020-02-29 08:32 | XMS REPORT | Summary of Care ---
:1965 Author Organization [facility] Address [address] [place] [id number] Care Team Providers Name Role Phone Algos Primary Care Provider Reason for Visit Reason Comments Follow-up test results Encounter Details Date Type Department Care Team Description 02/07/2020 Office Visit [facility] Javier Carlin Radiculopath y of cervical spine (Primary Dx); Neurology-Mary Cervantes MD Lumbar radiculopathy; [facility] [address], [address] [facility] [place] [phone] Allergies Active Allergy Reactions Severity Noted Date [...] with No / Unsure 02/07/2020 11:23 AM INSTRUCTOR OF NURSING someone who was confirmed or suspected to have Coronavirus / COVID-19? documented as of this encounter Last Filed Vital Signs Vital Sign Reading Time Taken Comments Blood Pressure 158/98 02/07/2020 11:37 pt states she d idnt AM INSTRUCTOR OF NURSING take pain medica tion or meds this AM Pulse 91 02/07/2020 11:35 AM INSTRUCTOR OF NURSING Temperature - - Respiratory Rate - - Oxygen Saturation 100% 02/07/2020 11:35 AM INSTRUCTOR OF NURSING Inhaled Oxygen - - Concentration Weight 54.4 kg (120 lb) 02/07/2020 11:35 AM INSTRUCTOR OF NURSING Height 152.4 cm (5') 02/07/2020 11:35 AM INSTRUCTOR OF NURSING Body Mass Index 23.44 02/07/2020 11:35 AM INSTRUCTOR OF NURSING documented in this encounter Progress Notes Javier Carlin MD - 02/07/2020 11:20 AM CST HISTORY OF PRESENT ILLNESS: Sydney Oliveira is a 54 year old female. CC: [...] file Gets together: Not on file Attends anglican service: Not on file Active member of [...] from a Microsoft Word template created with [employer]. The text was dictated into the template via Dragon Naturally Speaking. RUCTOR OF NURSING documented in this encounter Plan of Treatment [...] Phone Address Type / Group BCBS OF [facility] [id number] 2015-Rafael [phone] [address] PPO/POS [place] - OUT OF t 87 [phone] [place] [address] documented as of this encounter"
[2020-02-29 08:48] LABS: Urine Blood 3+ (NEG); Urine Glucose NEGATIVE (NEG); Urine Protein 1+ (NEG)
--- NOTE | 2020-02-29 08:51 | RAD REPORT ---
EXAM DESCRIPTION: CT - Stone Protocol - 02/29/2020 8:40 am CLINICAL HISTORY: Abdominal pain. COMPARISON: 2016 TECHNIQUE: Computed axial tomography of the abdomen pelvis was obtained without oral or IV contrast. Lack of IV and oral contrast limits evaluation of solid organs, bowel, and vessels. Coronal reformat micky images were obtained and reviewed. All CT scans are performed using dose optimization technique as appropriate and may include automated exposure control or mA/KV adjustment according to patient size. FINDINGS: A renal calculus is not seen. An ureteral calculus is not noted. A bladder calculus is not present. The liver, spleen, pancreas and adrenals appear grossly normal There is no evidence of diverticulitis. Postsurgical changes involve the lumbar spine Hysterectomy. Bladder wall is thickened IMPRESSION: Negative for a genitourinary calculus Bladder wall thickening may indicate a cystitis
[2020-02-29] MEDS ORDERED: ONDANSETRON 4 MG/2 ML VIAL ONE (09:01)
[2020-02-29] MEDS ORDERED: PHENAZOPYRIDINE 100MG TAB PO ONE (09:01)
[2020-02-29] MEDS ORDERED: NA CHLORIDE 0.9% 500 ML ONE (09:02)
[2020-02-29] MEDS ORDERED: MEPERIDINE HCL 25 MG/ML SYR ONE (09:02)
[2020-02-29 09:14] LABS: Absolute Lymphocytes (CBC) 2.2 K/uL (0.7-4.9); Basophils % 0.8 % (0-1.3); Hematocrit 38.9 % (36.0-45.0); Lymphocytes % 17.1 % (15.3-44.8); MPV 8.6 fL (7.6-11.3); RBC Red Blood Cell Count 4.24 M/uL (3.86-4.86)
[2020-02-29 09:33] LABS: ALT/SGPT 16 U/L (12-78); AST/SGOT 18 U/L (15-37); Alkaline Phosphatase 95 U/L (45-117); BUN Blood Urea Nitrogen 10 mg/dL (7-18); Bicarbonate 26 mmol/L (21-32); Bilirubin Direct < 0.1 mg/dL (0-0.2); Bilirubin Total 0.3 mg/dL (0.2-1.0); Glucose Level 87 mg/dL (74-106); Potassium 3.3 mmol/L (3.5-5.1); Protein, Total 7.2 g/dL (6.4-8.2); Sodium Level 134 mmol/L (136-145)
[2020-02-29] MEDS ORDERED: CIPROFLOXACIN HCL 500 MG TAB ONE (10:21)
[2020-02-29] MEDS ORDERED: HYDROCODONE/APAP 10/325 TAB ONE (10:22)
--- NOTE | 2020-02-29 11:35 | ER ---
Nurse's Notes [facility] Name: Sydney Oliveira Age: 54 yrs Sex: Female : 1965 Arrival Date: 02/29/2020 Time: 08:11 Bed 20 Private MD: Chandan Tanner V Diagnosis: Cystitis, unspecified with hematuria Presentation: 02/28 08:26 Chief complaint: Patient states: "feels like a rock is setting at my urethra" pt states zb approximately 1 am this morning she started feeling discomfort and feeling like she had to pee. about 30 mins ago she started noticing blood tinge urine and came here. Coronavirus screen: At this time, the client does not indicate any symptoms associated with coronavirus-19. Ebola Screen: No symptoms or risks identified at this time. Initial Sepsis Screen: Does the patient meet any 2 criteria? No. Patient's initial sepsis screen is negative. Does the patient have a suspected source of infection? No. Patient's initial sepsis screen is negative. Risk Assessment: Do you want to hurt yourself or someone else? Patient reports no desire to harm self or others. Onset of symptoms was February 29, 2020. 08:26 Method Of Arrival: Ambulatory zb 08:26 Acuity: VILLA 3 zb Triage Assessment: 08:33 General: Appears uncomfortable, Behavior is cooperative, anxious. Pain: Complains of zb pain in groin Pain does not radiate. Pain currently is 8 out of 10 on a pain scale. Quality of pain is described as throbbing, Pain began 1 hour ago. Is continuous, Alleviated by nothing. EENT: No signs and/or symptoms were reported regarding the EENT system. Neuro: Level of Consciousness is awake, alert, obeys commands, Oriented to person, place, time, situation. Cardiovascular: Capillary refill < 3 seconds in bilateral fingers Patient's skin is warm and dry. Respiratory: Airway is patent Respiratory effort is even, unlabored, Respiratory pattern is regular, symmetrical. GI: Abdomen is round non-distended, Bowel sounds present X 4 quads. : Reports pain in suprapubic area blood tinged urine. Derm: Skin is intact, is healthy with good turgor, Skin is normal. Musculoskeletal: Circulation, motion, and sensation intact. Capillary refill < 3 seconds, in bilateral fingers. Range of motion: intact in all extremities. 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 - Social history:: Smoking status: unknown. Screenin:33 Abuse screen: Denies threats or abuse. Denies injuries from another. Nutritional zb screening: No deficits noted. Tuberculosis screening: No symptoms or risk factors identified. Fall Risk None identified. Assessment: 08:33 Reassessment: see triage note. zb 09:30 Reassessment: Patient appears in no apparent distress at this time. Patient and/or zb family updated on plan of care and expected duration. Pain level reassessed. Patient is alert, oriented x 3, equal unlabored respirations, skin warm/dry/pink. pt still with c/o pain. notified ECP. 10:20 Reassessment: Patient appears in no apparent distress at this time. Patient and/or zb family updated on plan of care and expected duration. Pain level reassessed. Patient is alert, oriented x 3, equal unlabored respirations, skin warm/dry/pink. pt states she feeling a little better pain had decrease a little bit. patient urine a little bit clear. GI: Abd is soft and non tender X 4 quads. : Reports pain in suprapubic area. 11:20 Reassessment: Patient appears in no apparent distress at this time. Patient and/or zb family updated on plan of care and expected duration. Pain level reassessed. Patient is alert, oriented x 3, equal unlabored respirations, skin warm/dry/pink. pt states pain has decreased. pt appears more comfortable. 12:00 Reassessment: Patient appears in no apparent distress at this time. Patient and/or zb family updated on plan of care and expected duration. Pain level reassessed. Patient is alert, oriented x 3, equal unlabored respirations, skin warm/dry/pink. pt stated pain decreased, aox4, ambulatory. Patient states feeling better. Patient states symptoms have improved. Vital Signs: 08:26 BP 180 / 96; Pulse 91; Resp 18; Temp 98.8; Pulse Ox 100% on R/A; Weight 53.52 kg; zb Height 5 ft. 4 in. (162.56 cm); Pain 8/10; 09:00 BP 153 / 94; Pulse 80; Resp 16; Pulse Ox 98% on R/A; zb 10:00 BP 153 / 101; Pulse 74; Resp 18; Pulse Ox 97% on R/A; zb 11:00 BP 160 / 87; Pulse 76; Resp 16; Pulse Ox 97% on R/A; zb 12:00 BP 158 / 91; Pulse 68; Resp 18; Pulse Ox 97% on R/A; zb 08:26 Body Mass Index 20.25 (53.52 kg, 162.56 cm) zb ED Course: 08:00 Arm band placed on right wrist. zb 08:11 Patient arrived in ED. as 08:12 Chandan Tanner MD is Private Physician. as 08:22 Marcio Dorado MD is Attending Physician. kdr 08:26 Yumiko Segovia RN is Primary Nurse. zb 08:30 Patient has correct armband on for positive identification. Bed in low position. Call zb light in reach. Side rails up X 1. Pulse ox on. NIBP on. Door closed. Noise minimized. Warm blanket given. 08:31 Triage completed. zb 08:39 CT Stone Protocol In Process Unspecified. EDMS 11:34 Chandan Tanner MD is Referral Physician. kdr 12:03 No provider procedures requiring assistance completed. IV discontinued, intact, zb bleeding controlled, No redness/swelling at site. Pressure dressing applied. Administered Medications: 09:02 Drug: Zofran (Ondansetron) 4 mg Route: IVP; Site: right antecubital; zb 11:52 Follow up: Response: No adverse reaction zb 09:02 Drug: NS 0.9% 500 ml Route: IV; Rate: bolus; Site: right antecubital; zb 11:52 Follow up: Response: No adverse reaction; IV Status: Completed infusion; IV Intake: zb 500ml 09:02 Drug: Pyridium 200 mg Route: PO; zb 11:52 Follow up: Response: No adverse reaction zb 09:03 Drug: Demerol 25 mg Route: IVP; Site: right antecubital; zb 10:30 Follow up: Response: No adverse reaction; Pain is unchanged, physician notified zb 10:05 Drug: Cipro 500 mg Route: PO; zb 11:51 Follow up: Response: No adverse reaction zb 10:05 Drug: Colbert 10 mg-325 mg 1 tabs Route: PO; zb 11:51 Follow up: Response: No adverse reaction; RASS: Alert and Calm (0) zb Intake: 11:52 IV: 500ml; Total: 500ml. zb Outcome: 11:35 Discharge ordered by . kdr 12:03 Discharged to home ambulatory. zb 12:03 Condition: stable 12:03 Discharge instructions given to patient, Instructed on discharge instructions, follow up and referral plans. medication usage, Demonstrated understanding of instructions, follow-up care, medications, Prescriptions given X 3. 12:08 Patient left the ED. zb Signatures: Dispatcher [employer] EDMS Marcio Dorado MD MD kdr Martinez, Amelia as Brown, Zipporah, RN RN zb
--- NOTE | 2020-02-29 11:35 | EDPHYS ---
Physician Documentation [facility] Name: Sydney Oliveira Age: 54 yrs Sex: Female : 1965 Arrival Date: 02/29/2020 Time: 08:11 Bed 20 Private MD: Chandan Tanner V ED Physician Marcio Dorado HPI: 02/28 16:52 This 54 yrs old Female presents to ER via Ambulatory with complaints of kdr Possible Kidney Stone. 16:52 The patient presents with abdominal pain in the lower abdomen, Feels like a large rock kdr is sitting in her urethra. Onset: The symptoms/episode began/occurred suddenly, at 01:00. The symptoms do not radiate. Associated signs and symptoms: Pertinent positives: dysuria, hematuria, nausea, Pertinent negatives: diarrhea, fever, vomiting. The symptoms are described as achy, constant, sharp, steady. Modifying factors: The symptoms are alleviated by nothing, the symptoms are aggravated by pressure, walking. Severity of pain: At its worst the pain was moderate severe just prior to arrival, in the emergency department the pain is unchanged. The patient has experienced similar episodes in the past, several times, today's symptoms are similar, Kidney stones. The patient has not recently seen a physician. 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 - Social history:: Smoking status: unknown. ROS: 16:52 Constitutional: Negative for fever, chills, and weight loss, Eyes: Negative for injury, kdr pain, redness, and discharge, ENT: Negative for injury, pain, and discharge, Neck: Negative for injury, pain, and swelling, Cardiovascular: Negative for chest pain, palpitations, and edema, Respiratory: Negative for shortness of breath, cough, wheezing, and pleuritic chest pain, Abdomen/GI: Negative for abdominal pain, nausea, vomiting, diarrhea, and constipation, MS/Extremity: Negative for injury and deformity, Skin: Negative for injury, rash, and discoloration, Neuro: Negative for headache, weakness, numbness, tingling, and seizure activity. Psych: Negative for depression, anxiety, suicide ideation, homicidal ideation, and hallucinations, Allergy/Immunology: Negative for hives, rash, and allergies, Endocrine: Negative for neck swelling, polydipsia, polyuria, polyphagia, and marked weight changes, Hematologic/Lymphatic: Negative for swollen nodes, abnormal bleeding, and unusual bruising. 16:52 : Positive for urinary symptoms, urinary frequency, small amounts, hematuria, burning with urination. Exam: 16:52 Constitutional: This is a well developed, well nourished patient who is awake, alert, kdr and in no acute distress. Head/Face: Normocephalic, atraumatic. Eyes: Pupils equal round and reactive to light, extra-ocular motions intact. Lids and lashes normal. Conjunctiva and sclera are non-icteric and not injected. Cornea within normal limits. Periorbital areas with no swelling, redness, or edema. Neck: Trachea midline, no thyromegaly or masses palpated, and no cervical lymphadenopathy. Supple, full range of motion without nuchal rigidity, or vertebral point tenderness. No Meningismus. Chest/axilla: Normal chest wall appearance and motion. Nontender with no deformity. No lesions are appreciated. Cardiovascular: Regular rate and rhythm with a normal S1 and S2. No gallops, murmurs, or rubs. Normal PMI, no JVD. No pulse deficits. Respiratory: Lungs have equal breath sounds bilaterally, clear to auscultation and percussion. No rales, rhonchi or wheezes noted. No increased work of breathing, no retractions or nasal flaring. Abdomen/GI: Soft, non-tender, with normal bowel sounds. No distension or tympany. No guarding or rebound. No evidence of tenderness throughout. Back: No spinal tenderness. No costovertebral tenderness. Full range of motion. Skin: Warm, dry with normal turgor. Normal color with no rashes, no lesions, and no evidence of cellulitis. MS/ Extremity: Pulses equal, no cyanosis. Neurovascular intact. Full, normal range of motion. Neuro: Awake and alert, GCS 15, oriented to person, place, time, and situation. Cranial nerves II-XII grossly intact. Motor strength 5/5 in all extremities. Sensory grossly intact. Cerebellar exam normal. Normal gait. Psych: Awake, alert, with orientation to person, place and time. Behavior, mood, and affect are within normal limits. Vital Signs: 08:26 BP 180 / 96; Pulse 91; Resp 18; Temp 98.8; Pulse Ox 100% on R/A; Weight 53.52 kg; zb Height 5 ft. 4 in. (162.56 cm); Pain 8/10; 09:00 BP 153 / 94; Pulse 80; Resp 16; Pulse Ox 98% on R/A; zb 10:00 BP 153 / 101; Pulse 74; Resp 18; Pulse Ox 97% on R/A; zb 11:00 BP 160 / 87; Pulse 76; Resp 16; Pulse Ox 97% on R/A; zb 12:00 BP 158 / 91; Pulse 68; Resp 18; Pulse Ox 97% on R/A; zb 08:26 Body Mass Index 20.25 (53.52 kg, 162.56 cm) zb MDM: 11:35 Patient medically screened. kdr 16:52 Data reviewed: vital signs, nurses notes, lab test result(s), radiologic studies. kdr Counseling: I had a detailed discussion with the patient and/or guardian regarding: the historical points, exam findings, and any diagnostic results supporting the discharge/admit diagnosis, lab results, radiology results, the need for outpatient follow up. 02/28 08:23 Order name: Basic Metabolic Panel [facility] 02/28 08:23 Order name: CBC with Diff; Complete Time: 09:29 kdr 02/28 08:23 Order name: Hepatic Function kdr 02/28 08:23 Order name: CT Stone Protocol; Complete Time: 09:29 kdr 02/28 08:46 Order name: Urine Dipstick--Ancillary (enter results); Complete Time: 09:29 bd 02/28 11:37 Order name: Urine Culture bd 02/28 08:23 Order name: IV Saline Lock; Complete Time: 09:03 kdr 02/28 08:23 Order name: Labs collected and sent; Complete Time: 09:03 kdr 02/28 08:23 Order name: Urine Dipstick-Ancillary (obtain specimen); Complete Time: 09:04 kdr Administered Medications: 09:02 Drug: Zofran (Ondansetron) 4 mg Route: IVP; Site: right antecubital; zb 11:52 Follow up: Response: No adverse reaction zb 09:02 Drug: NS 0.9% 500 ml Route: IV; Rate: bolus; Site: right antecubital; zb 11:52 Follow up: Response: No adverse reaction; IV Status: Completed infusion; IV Intake: zb 500ml 09:02 Drug: Pyridium 200 mg Route: PO; zb 11:52 Follow up: Response: No adverse reaction zb 09:03 Drug: Demerol 25 mg Route: IVP; Site: right antecubital; zb 10:30 Follow up: Response: No adverse reaction; Pain is unchanged, physician notified zb 10:05 Drug: Cipro 500 mg Route: PO; zb 11:51 Follow up: Response: No adverse reaction zb 10:05 Drug: Gaylord 10 mg-325 mg 1 tabs Route: PO; zb 11:51 Follow up: Response: No adverse reaction; RASS: Alert and Calm (0) zb Disposition: 02/29/20 11:35 Discharged to Home. Impression: Cystitis, unspecified with hematuria. - Condition is Stable. - Discharge Instructions: Urinary Tract Infection, Adult, [id number]. - Prescriptions for Cipro 500 mg Oral Tablet - take 1 tablet by ORAL route every 12 hours for 10 days; 20 tablet. Pyridium 200 mg Oral Tablet - take 1 tablet by ORAL route every 8 hours for 3 days; 9 tablet. Tramadol 50 mg Oral Tablet - take 1 tablet by ORAL route every 8 hours as needed; 12 tablet. - Medication Reconciliation Form, Thank You Letter, Antibiotic Education, Prescription Opioid Use form. - Follow up: Chandan Tanner MD; When: 2 - 3 days; Reason: If symptoms return, Further diagnostic work-up, Recheck today's complaints, Continuance of care, Re-evaluation by your physician. Signatures: Dispatcher [employer] EDMS Marcio Dorado MD MD kdr Brown, Zipporah, RN RN zb Corrections: (The following items were deleted from the chart) 12:08 11:35 02/29/2020 11:35 Discharged to Home. Impression: Cystitis, unspecified with zb hematuria. Condition is Stable. Forms are Medication Reconciliation Form, Thank You Letter, Antibiotic Education, Prescription Opioid Use. Follow up: Chandan Tanner; When: 2 - 3 days; Reason: If symptoms return, Further diagnostic work-up, Recheck today's complaints, Continuance of care, Re-evaluation by your physician. kdr
[2020-03-01 07:22] VITALS: BP 180/96; TEMP 98.8; O2SAT 100
== END 2020-02-29 12:08 | disposition home or self-care (01) ==
LOC: ER 08:10
DX: N30.91 Cystitis, unspecified with hematuria (principal); I10 Essential (primary) hypertension; F41.8 Other specified anxiety disorders; Z88.0 Allergy status to penicillin; Z88.5 Allergy status to narcotic agent
CPT/HCPCS: 96361; 87088; 85025; 87086; 80048; 36415; 80076; 81003; 76377; 74176; 96375; 96374; 99284; J2175; J7040; J2405

== ENCOUNTER 2020-08-20 21:25 | Emergency (ER) | payer BC ==
--- NOTE | 2020-08-20 23:58 | ER ---
Nurse's Notes [facility] Name: Sydney Oliveira Age: 55 yrs Sex: Female : 1965 Arrival Date: 08/20/2020 Time: 21:34 Bed 5 Private MD: Diagnosis: Presentation: 08/20 21:38 Chief complaint: EMS states: Called for patient having palpitations and high blood lp1 pressure, reports feeling nausea; Reports having chronic pain to neck that has not been relieved by Dilaudid 2mg PO at home, last taken at 1330; states continued nausea after Zofran PO at home at 1400. Coronavirus screen: Client denies travel out of the [place] in the last 14 days. At this time, the client does not indicate any symptoms associated with coronavirus-19. Ebola Screen: No symptoms or risks identified at this time. Risk Assessment: Do you want to hurt yourself or someone else? Patient reports no desire to harm self or others. Onset of symptoms was August 20, 2020. 21:38 Method Of Arrival: EMS: [facility] lp1 21:38 Acuity: VILLA 3 lp1 21:43 Initial Sepsis Screen: Does the patient meet any 2 criteria? No. Patient's initial lp1 sepsis screen is negative. Does the patient have a suspected source of infection? No. Patient's initial sepsis screen is negative. 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 - Social history:: Smoking status: Patient reports the use of cigarette tobacco products, smokes one pack cigarettes per day. Vital Signs: 21:43 BP 166 / 91; Pulse 71; Resp 18; Temp 98.4(O); Pulse Ox 98% on R/A; Weight 52.16 kg (R); lp1 Height 5 ft. 4 in. (162.56 cm); Pain 9/10; 21:43 Body Mass Index 19.74 (52.16 kg, 162.56 cm) lp1 ED Course: 21:34 Patient arrived in ED. am2 21:41 Triage completed. lp1 21:41 Arm band placed on left wrist. lp1 23:40 Bernardo Grewal MD is Attending Physician. ma2 23:57 Patient's name was called from ER lobby. No response. Unable to locate patient. Will bb disposition as left without being seen by a provider. Administered Medications: No medications were administered Outcome: 23:58 Patient left the ED. bb Signatures: Lamar Avelar RN RN bb Eleanor Arauz RN RN lp1 Khushi Norwood am2 Bernardo Grewal MD MD [facility]
[2020-08-21 00:47] VITALS: BP 166/91; TEMP 98.4; O2SAT 98
== END 2020-08-20 23:58 | disposition left against medical advice (07) ==
LOC: ER 21:25
DX: Z53.21 Procedure and treatment not carried out due to patient leaving prior to being seen by health care provider (principal)
CPT/HCPCS: 99282

== ENCOUNTER 2020-08-21 06:15 | Emergency (ER) | payer BC ==
[2020-08-21] MEDS ORDERED: NA CHLORIDE 0.9% 1,000 ML ONE (06:54)
[2020-08-21] MEDS ORDERED: HYDROMORPHONE HCL 1 MG/ML INJ ONE ×2 (06:54→10:33)
[2020-08-21] MEDS ORDERED: ONDANSETRON 4 MG/2 ML VIAL ONE ×2 (06:54→10:33)
--- NOTE | 2020-08-21 07:19 | RAD REPORT ---
EXAM DESCRIPTION: CT - C Spine Wo Con - 08/21/2020 6:47 am CLINICAL HISTORY: PAIN Radiculopathy COMPARISON: Head C Spine Mpr Wo Con dated 01/11/2018; Myelogram C Spine dated 07/10/2015; SOFT TISSUE N ALON W CONTRAST dated 05/22/2015 FINDINGS: Postsurgical changes of and ACDF with hardware place noted at C4-5 and C5-7. No hardware c omplication. Mild disc thinning with small endplate osteophyte noted at C3-4 and C7-T1. No evidence of acute cervical spine fracture or subluxation. Prevertebral soft tissues are normal in thickness. IMPRESSION: Postsurgical changes are present with hardware place as detailed. Mild cervical spondylo sis is noted without acute process. All CT scans are performed using dose optimization technique as appropriate and may include automated exposure control or mA/KV adjustment according to patient size.
[2020-08-21 07:44] LABS: Absolute Lymphocytes (CBC) 1.6 K/uL (0.7-4.9); Basophils % 0.2 % (0-1.3); Hematocrit 38.8 % (36.0-45.0); Lymphocytes % 12.1 % (15.3-44.8); MPV 8.5 fL (7.6-11.3); RBC Red Blood Cell Count 4.24 M/uL (3.86-4.86)
[2020-08-21 07:49] LABS: Protime INR 1.03
[2020-08-21 07:58] LABS: ALT/SGPT 18 U/L (12-78); AST/SGOT 15 U/L (15-37); Albumin 3.7 g/dL (3.4-5.0); Alkaline Phosphatase 79 U/L (45-117); BUN Blood Urea Nitrogen 5 mg/dL (7-18); Bicarbonate 31 mmol/L (21-32); Bilirubin Direct 0.2 mg/dL (0-0.2); Bilirubin Total 0.6 mg/dL (0.2-1.0); Glucose Level 111 mg/dL (74-106); Lipase 53 U/L (73-393); NT PRO-BNP 421 pg/mL (<125); Potassium 3.2 mmol/L (3.5-5.1); Protein, Total 6.8 g/dL (6.4-8.2); Sodium Level 130 mmol/L (136-145); Troponin (Emerg Dept Use Only) < 0.02 ng/mL (0.0-0.045)
--- NOTE | 2020-08-21 09:30 | RAD REPORT ---
EXAM DESCRIPTION: RAD - Chest Single View - 08/21/2020 7:00 am CLINICAL HISTORY: COUGH Chest pain. COMPARISON: <Comparisons> FINDINGS: Portable technique limits examination quality. The lungs are grossly clear. The heart is normal in size. No displaced fractures.Cervical hardware pl ate noted. IMPRESSION: No acute intrathoracic process suspected.
[2020-08-21 10:12] LABS: Urine Blood 1+ (Negative); Urine Glucose Negative (Negative); Urine Protein Negative (Negative); Urine Specific Gravity 1.015 (1.005-1.030)
--- NOTE | 2020-08-21 10:15 | EDPHYS ---
Physician Documentation [facility] Name: Sydney Oliveira Age: 55 yrs Sex: Female : 1965 Arrival Date: 08/21/2020 Time: 06:17 Bed 7 Private MD: YOSHI Physician Randal Cantu HPI: 08/21 10:09 This 55 yrs old Female presents to ER via EMS with complaints of Neck and briana Upper Back Pain. 10:09 The patient or guardian complains of decreased range of motion, pain, that is acute. briana The symptoms are located on the back of neck. Onset: The symptoms/episode began/occurred 2 day(s) ago. Context: The problem was sustained at an unknown location. Associated signs and symptoms: Pertinent positives: spasms. The pain does not radiate. Severity of symptoms: At their worst the symptoms were moderate. The patient has experienced similar episodes in the past, multiple times. Historical: - Allergies: 06:23 Codeine; ea 06:23 Morphine; ea 06:23 PENICILLINS; ea - Home Meds: 06:23 escitalopram oxalate 10 mg Oral tab 1 tab once daily [Active]; losartan 50 mg Oral tab ea 1 tab once daily [Active]; Dilaudid 2 mg Oral tab [Active]; - PMHx: 06:23 Migraines; Hypertension; Hyperlipidemia; Depression; Anxiety; Chronic pain; ea - PSHx: 06:23 ; back surgery; Hysterectomy; Cholecystectomy; ea - Immunization history:: Adult Immunizations up to date. - Social history:: Smoking status: . - Family history:: not pertinent. ROS: 10:09 Constitutional: Negative for fever, chills, and weight loss, Eyes: Negative for injury, briana pain, redness, and discharge, ENT: Negative for injury, pain, and discharge, Cardiovascular: Negative for chest pain, palpitations, and edema, Respiratory: Negative for shortness of breath, cough, wheezing, and pleuritic chest pain, Abdomen/GI: Negative for abdominal pain, nausea, vomiting, diarrhea, and constipation, Back: Negative for injury and pain, : Negative for injury, bleeding, discharge, and swelling, MS/Extremity: Negative for injury and deformity, Skin: Negative for injury, rash, and discoloration, Neuro: Negative for headache, weakness, numbness, tingling, and seizure, Psych: Negative for depression, anxiety, suicide ideation, homicidal ideation, and hallucinations, Allergy/Immunology: Negative for hives, rash, and allergies, Endocrine: Negative for neck swelling, polydipsia, polyuria, polyphagia, and marked weight changes, Hematologic/Lymphatic: Negative for swollen nodes, abnormal bleeding, and unusual bruising. 10:09 Neck: Positive for pain with movement, pain at rest. 10:09 Cardiovascular: Negative for chest pain. Exam: 10:09 Constitutional: This is a well developed, well nourished patient who is awake, alert, briana and in no acute distress. Head/Face: Normocephalic, atraumatic. Eyes: Pupils equal round and reactive to light, extra-ocular motions intact. Lids and lashes normal. Conjunctiva and sclera are non-icteric and not injected. Cornea within normal limits. Periorbital areas with no swelling, redness, or edema. ENT: Nares patent. No nasal discharge, no septal abnormalities noted. Tympanic membranes are normal and external auditory canals are clear. Oropharynx with no redness, swelling, or masses, exudates, or evidence of obstruction, uvula midline. Mucous membranes moist. Neck: Trachea midline, no thyromegaly or masses palpated, and no cervical lymphadenopathy. Supple, full range of motion without nuchal rigidity, or vertebral point tenderness. No Meningismus. Chest/axilla: Normal chest wall appearance and motion. Nontender with no deformity. No lesions are appreciated. Cardiovascular: Regular rate and rhythm with a normal S1 and S2. No gallops, murmurs, or rubs. Normal PMI, no JVD. No pulse deficits. Respiratory: Lungs have equal breath sounds bilaterally, clear to auscultation and percussion. No rales, rhonchi or wheezes noted. No increased work of breathing, no retractions or nasal flaring. Abdomen/GI: Soft, non-tender, with normal bowel sounds. No distension or tympany. No guarding or rebound. No evidence of tenderness throughout. Back: No spinal tenderness. No costovertebral tenderness. Full range of motion. Skin: Warm, dry with normal turgor. Normal color with no rashes, no lesions, and no evidence of cellulitis. MS/ Extremity: Pulses equal, no cyanosis. Neurovascular intact. Full, normal range of motion. Neuro: Awake and alert, GCS 15, oriented to person, place, time, and situation. Cranial nerves II-XII grossly intact. Motor strength 5/5 in all extremities. Sensory grossly intact. Cerebellar exam normal. Normal gait. Psych: Awake, alert, with orientation to person, place and time. Behavior, mood, and affect are within normal limits. Vital Signs: 06:17 BP 145 / 92; Pulse 68; Resp 19; Temp 98; Pulse Ox 100% ; ea 07:44 BP 153 / 84; Pulse 70; Resp 15; Pulse Ox 96% on R/A; Pain 7/10; hb 09:00 BP 146 / 77; Pulse 82; Resp 14; Pulse Ox 99% on R/A; hb 09:42 BP 136 / 74; Pulse 69; Resp 15; Pulse Ox 96% on R/A; hb MDM: 06:17 Patient medically screened. [facility] 08/21 06:19 Order name: Basic Metabolic Panel [facility] 08/21 06:19 Order name: CBC with Diff [facility] 08/21 06:19 Order name: LFT's briana 08/21 06:19 Order name: Magnesium [facility] 08/21 06:19 Order name: NT PRO-BNP [facility] 08/21 06:19 Order name: PT-INR [facility] 08/21 06:19 Order name: Troponin (emerg Dept Use Only); Complete Time: 10:04 [facility] 08/21 06:19 Order name: Lipase; Complete Time: 10:04 [facility] 08/21 06:19 Order name: Acetaminophen; Complete Time: 10:04 [facility] 08/21 06:19 Order name: ETOH Level; Complete Time: 10:04 [facility] 08/21 06:19 Order name: Ptt, Activated; Complete Time: 10:04 [facility] 08/21 06:19 Order name: Salicylate; Complete Time: 10:04 [facility] 08/21 06:19 Order name: Urine Drug Screen 08/21 06:20 Order name: Basic Metabolic Panel; Complete Time: 10:04 EDMS 08/21 06:19 Order name: XRAY Chest (1 view); Complete Time: 10:04 [facility] 08/21 06:19 Order name: EKG; Complete Time: 06:21 [facility] 08/21 06:19 Order name: CT C Spine; Complete Time: 10:04 [facility] 08/21 06:20 Order name: CBC with Automated Diff; Complete Time: 10:04 [facility] 08/21 06:20 Order name: Liver (Hepatic) Function; Complete Time: 10:04 [facility] 08/21 06:20 Order name: Magnesium; Complete Time: 10:04 [facility] 08/21 06:20 Order name: NT PRO-BNP; Complete Time: 10:04 [facility] 08/21 06:20 Order name: Protime (+INR); Complete Time: 10:04 [facility] 08/21 10:11 Order name: Urine Dipstick-Ancillary; Complete Time: 10:12 [facility] 08/21 06:19 Order name: Cardiac monitoring; Complete Time: 07:43 [facility] 08/21 06:19 Order name: EKG - Nurse/Tech; Complete Time: 07:43 [facility] 08/21 06:19 Order name: IV Saline Lock; Complete Time: 07:43 [facility] 08/21 06:19 Order name: Labs collected and sent; Complete Time: 07:43 [facility] 08/21 06:19 Order name: O2 Per Protocol; Complete Time: 06:59 [facility] 08/21 06:19 Order name: O2 Sat Monitoring; Complete Time: 08:01 [facility] 08/21 06:19 Order name: Suicide Screening ([place]); Complete Time: 07:45 [facility] 08/21 06:19 Order name: Urine Dipstick-Ancillary (obtain specimen); Complete Time: 10:23 [facility] Administered Medications: 06:50 Drug: NS 0.9% 1000 ml Route: IV; Rate: 1 bolus; Site: right antecubital; ea 06:50 Drug: Dilaudid (HYDROmorphone) 1 mg Route: IVP; Site: right antecubital; ea 08:01 Follow up: Response: No adverse reaction hb 06:50 Drug: Zofran (Ondansetron) 4 mg Route: IVP; Site: right antecubital; ea 08:00 Follow up: Response: No adverse reaction hb 10:11 Drug: Valium (diazepam) 5 mg Route: PO; hb 10:23 Follow up: Response: Medication administered at discharge. hb 10:11 Drug: Dilaudid (HYDROmorphone) 1 mg Route: IVP; Site: right antecubital; hb 10:22 Follow up: Response: Medication administered at discharge. hb 10:11 Drug: Zofran (Ondansetron) 4 mg Route: IVP; Site: right antecubital; hb 10:22 Follow up: Response: Medication administered at discharge. hb 10:15 Drug: Potassium Effervescent Tablet 25 mEq Route: PO; hb 10:23 Follow up: Response: Medication administered at discharge. Disposition: 08/21/20 10:14 Discharged to Home. Impression: Strain of muscle, fascia and tendon at neck level, Other chronic pain, Hypokalemia. - Condition is Stable. - Discharge Instructions: Chronic Pain, Potassium Content of Foods, Muscle Strain, Cervical Sprain, Gpda-qa-Lyzt, Hypokalemia. - Prescriptions for Ibuprofen 600 mg Oral Tablet - take 1 tablet by ORAL route every 6 hours As needed take with food; 21 tablet. Cyclobenzaprine 5 mg Oral Tablet - take 1 tablet by ORAL route 3 times per day As needed; 15 tablet. - Medication Reconciliation Form, Thank You Letter, Antibiotic Education, Prescription Opioid Use form. - Follow up: Private Physician; When: 2 - 3 days; Reason: Recheck today's complaints, Continuance of care, Re-evaluation by your physician. Follow up: Maico Padilla DO; When: 2 - 3 days; Reason: Recheck today's complaints, Re-evaluation by your physician. - Problem is new. - Symptoms have improved. Signatures: Dispatcher [employer] EDNY Randal Cantu MD MD cha Baxter, Heather, RN RN hb Antunez, Elena, RN RN ea Corrections: (The following items were deleted from the chart) 10:15 10:14 08/21/2020 10:14 Discharged to Home. Impression: Strain of muscle, fascia and briana tendon at neck level; Other chronic pain; Hypokalemia. Condition is Stable. Forms are Medication Reconciliation Form, Thank You Letter, Antibiotic Education, Prescription Opioid Use. Follow up: Private Physician; When: 2 - 3 days; Reason: Recheck today's complaints, Continuance of care, Re-evaluation by your physician. Problem is new. Symptoms have improved. briana 10:24 10:15 08/21/2020 10:14 Discharged to Home. Impression: Strain of muscle, fascia and hb tendon at neck level; Other chronic pain; Hypokalemia. Condition is Stable. Forms are Medication Reconciliation Form, Thank You Letter, Antibiotic Education, Prescription Opioid Use. Follow up: Private Physician; When: 2 - 3 days; Reason: Recheck today's complaints, Continuance of care, Re-evaluation by your physician. Follow up: Maico Padilla; When: 2 - 3 days; Reason: Recheck today's complaints, Re-evaluation by your physician. Problem is new. Symptoms have improved. briana
--- NOTE | 2020-08-21 10:15 | ER ---
Nurse's Notes [facility] Name: Sydney Oliveira Age: 55 yrs Sex: Female : 1965 Arrival Date: 08/21/2020 Time: 06:17 Bed 7 Private MD: Diagnosis: Strain of muscle, fascia and tendon at neck level;Other chronic pain;Hypokalemia Presentation: 08/21 06:17 Chief complaint: EMS states: Reports chronic pain to c spine, pt reports pain sometimes ea causes her to have nausea and vomiting. Coronavirus screen: At this time, the client does not indicate any symptoms associated with coronavirus-19. Ebola Screen: No symptoms or risks identified at this time. Initial Sepsis Screen: Does the patient meet any 2 criteria? No. Patient's initial sepsis screen is negative. Does the patient have a suspected source of infection? No. Patient's initial sepsis screen is negative. Risk Assessment: Do you want to hurt yourself or someone else? Patient reports no desire to harm self or others. Onset of symptoms was August 21, 2020. 06:17 Method Of Arrival: EMS: [facility] ea 06:17 Acuity: VILLA 3 ea Historical: - Allergies: 06:23 Codeine; ea 06:23 Morphine; ea 06:23 PENICILLINS; ea - Home Meds: 06:23 escitalopram oxalate 10 mg Oral tab 1 tab once daily [Active]; losartan 50 mg Oral tab ea 1 tab once daily [Active]; Dilaudid 2 mg Oral tab [Active]; - PMHx: 06:23 Migraines; Hypertension; Hyperlipidemia; Depression; Anxiety; Chronic pain; ea - PSHx: 06:23 ; back surgery; Hysterectomy; Cholecystectomy; ea - Immunization history:: Adult Immunizations up to date. - Social history:: Smoking status: . - Family history:: not pertinent. Screenin:20 Abuse screen: Denies threats or abuse. Nutritional screening: No deficits noted. ea Tuberculosis screening: No symptoms or risk factors identified. Fall Risk None identified. Assessment: 06:27 General: Appears in no apparent distress. Behavior is calm, cooperative, appropriate ea for age. Pain: Complains of pain in base of the skull. Respiratory: Airway is patent is compromised. Derm: Skin is normal. 07:25 Reassessment: Patient appears in no apparent distress at this time. Patient and/or hb family updated on plan of care and expected duration. Pain level reassessed. Patient is alert, oriented x 3, equal unlabored respirations, skin warm/dry/pink. 08:30 Reassessment: Patient appears in no apparent distress at this time. Patient and/or hb family updated on plan of care and expected duration. Pain level reassessed. Patient is alert, oriented x 3, equal unlabored respirations, skin warm/dry/pink. 09:30 Reassessment: Patient appears in no apparent distress at this time. Patient and/or hb family updated on plan of care and expected duration. Pain level reassessed. Patient is alert, oriented x 3, equal unlabored respirations, skin warm/dry/pink. 10:15 Reassessment: Patient appears in no apparent distress at this time. Patient and/or hb family updated on plan of care and expected duration. Pain level reassessed. Patient is alert, oriented x 3, equal unlabored respirations, skin warm/dry/pink. Vital Signs: 06:17 BP 145 / 92; Pulse 68; Resp 19; Temp 98; Pulse Ox 100% ; ea 07:44 BP 153 / 84; Pulse 70; Resp 15; Pulse Ox 96% on R/A; Pain 7/10; hb 09:00 BP 146 / 77; Pulse 82; Resp 14; Pulse Ox 99% on R/A; hb 09:42 BP 136 / 74; Pulse 69; Resp 15; Pulse Ox 96% on R/A; hb ED Course: 06:17 Patient arrived in ED. ea 06:17 Randal Cantu MD is Attending Physician. [facility] 06:19 Triage completed. ea 06:20 Patient has correct armband on for positive identification. Bed in low position. Call ea light in reach. Side rails up X2. 06:21 Arm band placed on right wrist. Patient placed in an exam room, on a stretcher, on ea pulse oximetry. 06:47 CT C Spine In Process Unspecified. EDMS 07:00 XRAY Chest (1 view) In Process Unspecified. EDMS 07:00 Inserted saline lock: 20 gauge in right antecubital area, using aseptic technique. hb ,using aseptic technique. by Marina FULLER. 07:13 Maxine Santiago RN is Primary Nurse. ph 07:24 Initial lab(s) drawn, by , sent to lab. hb 07:44 Lindsey Monsivais, RN is Primary Nurse. hb 10:14 Maico Padilla DO is Referral Physician. briana 10:23 No provider procedures requiring assistance completed. IV discontinued, intact, hb bleeding controlled, No redness/swelling at site. Administered Medications: 06:50 Drug: NS 0.9% 1000 ml Route: IV; Rate: 1 bolus; Site: right antecubital; ea 06:50 Drug: Dilaudid (HYDROmorphone) 1 mg Route: IVP; Site: right antecubital; ea 08:01 Follow up: Response: No adverse reaction hb 06:50 Drug: Zofran (Ondansetron) 4 mg Route: IVP; Site: right antecubital; ea 08:00 Follow up: Response: No adverse reaction hb 10:11 Drug: Valium (diazepam) 5 mg Route: PO; hb 10:23 Follow up: Response: Medication administered at discharge. hb 10:11 Drug: Dilaudid (HYDROmorphone) 1 mg Route: IVP; Site: right antecubital; hb 10:22 Follow up: Response: Medication administered at discharge. hb 10:11 Drug: Zofran (Ondansetron) 4 mg Route: IVP; Site: right antecubital; hb 10:22 Follow up: Response: Medication administered at discharge. hb 10:15 Drug: Potassium Effervescent Tablet 25 mEq Route: PO; hb 10:23 Follow up: Response: Medication administered at discharge. hb Outcome: 10:14 Discharge ordered by . briana 10:23 Discharged to home ambulatory, with significant other. hb 10:23 Condition: stable 10:23 Discharge instructions given to patient, significant other, Instructed on discharge instructions, follow up and referral plans. medication usage, Demonstrated understanding of instructions, follow-up care, medications, Prescriptions given X 2. 10:24 Patient left the ED. hb Signatures: Dispatcher [employer] EDWV Randal Cantu MD MD cha Hall, Patricia, RN RN Lindsey Monsivais, RN RN Marina Petersen RN RN ea
[2020-08-21 10:26] LABS: Barbiturates NEGATIVE (NEGATIVE); Benzodiazepines NEGATIVE (NEGATIVE); Cocaine NEGATIVE (NEGATIVE); METHAMPHETAM NEGATIVE (NEGATIVE); Methadone NEGATIVE (NEGATIVE); Opiates NEGATIVE (NEGATIVE); Phencyclidine NEGATIVE (NEGATIVE); THC Cannibis NEGATIVE (NEGATIVE)
[2020-08-21] MEDS ORDERED: DIAZEPAM 5 MG TABLET ONE (10:32)
[2020-08-21] MEDS ORDERED: POTASSIUM 25 MEQ EFFERV TAB ONE (10:33)
[2020-08-21 11:03] VITALS: TEMP 98
[2020-08-21 11:11] VITALS: BP 136/74; O2SAT 96
== END 2020-08-21 10:24 | disposition home or self-care (01) ==
LOC: ER 06:15
DX: S16.1XXA Strain of muscle, fascia and tendon at neck level, initial encounter (principal); E87.6 Hypokalemia; E78.5 Hyperlipidemia, unspecified; F41.8 Other specified anxiety disorders; I10 Essential (primary) hypertension; Z88.0 Allergy status to penicillin; Z88.5 Allergy status to narcotic agent
CPT/HCPCS: 93005; 85025; 80048; 36415; 80320; 83735; 80329 ×2; 85610; 80076; 80307 ×8; 85730; 81003; 84484; 83690; 83880; 72125; 71045; J1170 ×2; J7030; J2405 ×2; 96374; 96375; 99284

== ENCOUNTER 2021-01-04 06:31 | Day surgery (SDC) | payer BC ==
[2021-01-01 15:23] LABS: Basophils % 0.8 % (0-1.3); Hematocrit 42.5 % (36.0-45.0); Lymphocytes % 20.3 % (15.3-44.8); MPV 8.9 fL (7.6-11.3); RBC Red Blood Cell Count 4.48 M/uL (3.86-4.86)
[2021-01-01 15:27] LABS: Potassium 3.8 mmol/L (3.5-5.1)
[2021-01-04] MEDS ORDERED: Ringers Lactate 1,000 ML IV ONE (07:24)
[2021-01-04] MEDS ORDERED: CEFOXITIN/NS 1gm 1 GM/50 ML BAG ONE (07:25)
[2021-01-04] MEDS ORDERED: CELECOXIB 100 MG CAPSULE ONE (07:39)
[2021-01-04] MEDS ORDERED: ACETAMINOPHEN 500 MG TAB ONE (07:40)
[2021-01-04] MEDS ORDERED: propofoL 200 MG/20 ML VIAL IV ONE (07:43)
[2021-01-04] MEDS ORDERED: MIDAZOLAM HCL 2 MG/2 ML INJ ONE (07:43)
[2021-01-04] MEDS ORDERED: LIDOCAINE 1% MPF 5 ML VIAL ONE (07:43)
[2021-01-04] MEDS ORDERED: FENTANYL CITR 100 MCG/2 ML ONE (07:43)
[2021-01-04] MEDS ORDERED: BUPIVACAINE 0.5% PF 10 ML VIAL ONE (07:52)
[2021-01-04] MEDS ORDERED: ONDANSETRON 4 MG/2 ML VIAL ONE (08:29)
[2021-01-04] MEDS ORDERED: dexAMETHasone 10 MG/ML VIAL ONE (08:29)
[2021-01-04] MEDS ORDERED: KETOROLAC 30 MG/ML INJ ONE (08:34)
[2021-01-04] MEDS: HYDROMORPHONE HCL 1 MG/ML INJ ONE ×2 (09:05→09:13)
[2021-01-04] MEDS ORDERED: HYDROCODONE/APAP 7.5/325 MG TAB ONE (10:07)
[2021-01-04 10:26] VITALS: BP 136/69; TEMP 96.7; O2SAT 97
--- NOTE | 2021-01-04 20:00 | OP ---
Date of Procedure: 01/04/2021 Surgeon: Phil Johnson MD Education Department Registrar: None. Preoperative Diagnosis: Left buttock cyst and hemorrhoids, symptomatic. Postoperative Diagnosis: Left buttock cyst and hemorrhoids, symptomatic. Procedures: Exam under anesthesia, rigid proctoscopy, hemorrhoidectomy x3, and wide excision of left buttock cyst 4 x 2 cm with layered closure. Estimated Blood Loss: Minimal. 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 Findings: As above. Anesthesia: General. Complications: None. Disposition: The patient tolerated the procedure in stable condition and taken to Recovery in good g eneral condition. Procedure In Detail: The patient was brought to the OR and placed in supine position. General anest hesia was began. The patient was placed in lithotomy position, prepped and draped in the usual steri le fashion. Exam under anesthesia revealed approximately a 1.5 cm cyst, red, slightly raised above t he skin level with a small opening. The rectal exam did not reveal any solid masses. Rigid proctosc opy was performed. The patient had internal hemorrhoids and there was a question of either a fissure or small opening in the left posterior hemorrhoid region. Regardless, first Marcaine 0.5% was infil trated locally and then 15 blade was used to make a 4 x 2 cm incision around the cyst and the cyst wa s excised through the deep subcutaneous tissue and sent to Pathology. The wound was explored. There was no fistulous tract or any tract that could be identified. Subsequently, wound irrigated. Bleed ing controlled with cautery. A 2-0 chromic used to approximate the subcutaneous tissue and 3-0 nylon used to close the skin. Under proctoscopy, all 3 hemorrhoid regions were excised using Harmonic Sca lpel. Bleeding was controlled with cautery. Each specimen was labeled appropriately and sent to [facility]. There was no evidence of bleeding noted. Then a rectal pack consisting of Gelfoam, Surgicel , and Vaseline gauze was placed in the anal canal. Sterile dressing was applied. The patient was aw akened, taken to Recovery in good general condition. Discharge Note: The patient will go to Day Surgery and home when stable. Disposition: Home. Condition: Stable. Discharge Instructions: Resume home medications and diet. Activity as tolerated. No heavy lifting. Sitz bath q.i.d. High-fiber diet. Metamucil 1 tablespoon p.o. t.i.d. Colace 100 mg p.o. b.i.d., Procto-HC 2.5% to anus b.i.d. The patient has pain medicine as she is a pain management patient. e patient will follow up with me in 2 weeks. KEITH/EVERETTE Voice ID: [id number] Report ID: [id number]
== END 2021-01-04 10:15 | disposition home or self-care (01) ==
LOC: PRE 06:31
PROVIDERS: ATTEND Surgery
PROC: 0JB90ZZ Excision of Buttock Subcutaneous Tissue and Fascia, Open Approach (ICD-10-PCS; 2021-01-04)
PROC: 06BY4ZC Excision of Hemorrhoidal Plexus, Percutaneous Endoscopic Approach (ICD-10-PCS; principal; 2021-01-04 07:30)
DX: K64.4 Residual hemorrhoidal skin tags (principal); L72.0 Epidermal cyst; Z20.822 Contact with and (suspected) exposure to COVID-19
CPT/HCPCS: 85025; 80048; 36415; 88304 ×2; 46260; 11402; U0003; J2704; J2250; J3010; J1100; J1170; J7120; J0694; J2405; 88302

== ENCOUNTER 2021-03-09 02:26 | Emergency (ER) | payer BC ==
--- OUTSIDE RECORDS SUMMARY | 2021-03-09 02:31 | XMS REPORT | Continuity of Care Document ---
:1965 Author Organization [facility] t Address [address] [place] [address] Care Team Providers Name Role Phone [place] Primary Care Physician Manish RN, T Attending Clinician Unavailable Only, Db Test Attending Clinician Unavailable Unknown Attending Clinician Unavailable REYNALDO Attending Clinician Unavailable Shanna Akbar Attending Clinician Unavailable Doctor Unassigned, Name Attending Clinician Unavailable Sole Montes DO Attending Clinician Sheila Carlin MD Attending Clinician SHEILA CARLIN Attending Clinician Unavailable SHEILA CARLIN Attending Clinician Unavailable Robert HURLEY Attending Clinician Unavailable Shanna Akbar Admitting Clinician Unavailable Payers Payer Name Policy Type Policy Number Effective Date Expiration Date S [facility] - [id number] 2015 00:00:00 OUT OF STATE Problems Condition Condition Condition Status Onset Resolution Last Treating Co mments Source Name Details Category Date Date Treatment Clinician Date No known No known Disease Unive rs active active ity of problems problems [facility] Allergies, Adverse Reactions, Alerts Allergy Allergy Status Severity Reaction(s) Onset Inactive Treating Comm ents Source Name Type Date Date Clinician morphine DA Active SV SWELLING 2008-03 [facility] [place] codeine DA Active MO ITCH 2008-03 [facility] [place] Penicill DA Active MO 2008-03 [facility] ins [facility] [place] morphine DA Active SV 2008-03 [facility] [place] codeine DA Active MO 2008-03 [facility] 0 [facility] [place] Penicill DA Active MO ITCH,UPSET 2008-[address] [facility] [place] CODEINE DRUG Active Hives Univers INGREDI ity of [facility] MORPHINE DRUG Active Hives Univers INGREDI ity of [facility] PENICILL Drug Active Hives Univers INS Class ity of [facility] Codeine Propensi Active Other - See Tachycard Univers ty to comments ia ity of adverse [place] reaction Medical s Branch Morphine Propensi Active Other - See tachycar d Univers ty to comments ia ity of adverse [place] reaction Medical s Branch Penicill Propensi Active Other - See Tachycar d Univers ins ty to comments ia ity of adverse [place] reaction Medical s Branch Social History Social Habit Start Date Stop Date Quantity Comments Source Exposure to Not sure [facility] SARS-CoV-2 [facility] (event) [place] Alcohol intake 2020-08-01 2020-08-01 Current University of 00:00:00 00:00:00 non-drinker of [facility] alcohol [place] (finding) Tobacco use and 2017-12-23 2017-12-23 Never used Universit y of exposure 00:00:00 00:00:00 [facility] Sex [birth year] At [birth year] Universit y of 00:00:00 00:00:00 [facility] Smoking Status Start Date Stop Date Source Current every day smoker 2017-12-23 00:00:00 Uni versity of [place] [facility] Medications Ordered Filled Start Stop Current Ordering Indication Dosage Frequency Signature Comments Components Source Medication Medication Date Date Medication? Clinician (SIG) Name Name naltrexone 2020- No Take 1 Univ ers HCl 08-01 05-25 TAB-CAP/M2 ity of (NALTREXONE 21:07: 00:00 by mouth [place] ORAL) 06 :00 at Medical bedtime. Branch gabapentin 2019-03- No Take by Un rh[place] ER 300 mg 1-30 11-30 mouth ity of tablet, 18:02: 00:00 daily. [place] extended 36 :00 Medical release 24 Branch hr gabapentin 2019-03 2020- No Take by Un [place] ER 300 mg 1-30 11-30 mouth ity of tablet, 18:02: 00:00 daily. [place] extended 36 :00 Medical release 24 Branch hr losartan 2019-03 Yes losartan Unive rs 100 mg 1-30 100 mg ity of tablet 17:35: tablet [address] losartan 2019-03 Yes losartan Unive rs 100 mg 1-30 100 mg ity of tablet 17:35: tablet [address] losartan 2019-03 Yes losartan Unive rs 100 mg 1-30 100 mg ity of tablet 17:35: tablet [address] losartan 2019-03 Yes losartan Unive rs 100 mg 1-30 100 mg ity of tablet 17:35: tablet [address] losartan 2019-03 Yes losartan Unive rs 100 mg 1-30 100 mg ity of tablet 17:35: tablet [address] losartan 2019-03 Yes losartan Unive rs 100 mg 1-30 100 mg ity of tablet 17:35: tablet [address] losartan 2019-03 Yes losartan Unive rs 100 mg 1-30 100 mg ity of tablet 17:35: tablet [address] losartan 2019-03 Yes losartan Unive rs 100 mg 1-30 100 mg ity of tablet 11:35: tablet [address] losartan 2019-03 Yes losartan Unive rs 100 mg 1-30 100 mg ity of tablet 11:35: tablet [address] gabapentin 2019-03 Yes [id number] 600mg Take 1 Univers ER 600 mg 1-30 01 tablet by ity o f tablet, 00:00: mouth [place] extended 00 daily. Medical release 24 Branch hr gabapentin 2019-03 Yes [id number] 600mg Take 1 Univers ER 600 mg 1-30 01 tablet by ity o f tablet, 00:00: mouth [place] extended 00 daily. Medical release 24 Branch hr gabapentin 2019-03 Yes [id number] 600mg Take 1 Univers ER 600 mg 1-30 01 tablet by ity o f tablet, 00:00: mouth [place] extended 00 daily. Medical release 24 Branch hr gabapentin 2019-03 Yes [id number] 600mg Take 1 Univers ER 600 mg 1-30 01 tablet by ity o f tablet, 00:00: mouth [place] extended 00 daily. Medical release 24 Branch hr gabapentin 2020-1 Yes [id number] 600mg Take 1 Univers ER 600 mg 1-30 01 tablet by ity o f tablet, 00:00: mouth [place] extended 00 daily. Medical release 24 Branch hr gabapentin 2020-1 Yes [id number] 600mg Take 1 Univers ER 600 mg 1-30 01 tablet by ity o f tablet, 00:00: mouth [place] extended 00 daily. Medical release 24 Branch hr gabapentin 2020-1 Yes [id number] 600mg Take 1 Univers ER 600 mg 1-30 01 tablet by ity o f tablet, 00:00: mouth [place] extended 00 daily. Medical release 24 Branch hr gabapentin 2020- Yes [id number] 600mg Take 1 Univers ER 600 mg 1-30 01 tablet by ity o f tablet, 00:00: mouth [place] extended 00 daily. Medical release 24 Branch hr gabapentin 2019- Yes [id number] 600mg Take 1 Univers ER 600 mg 1-30 01 tablet by ity o f tablet, 00:00: mouth [place] extended 00 daily. Medical release 24 Branch hr naltrexone 2020-0 Yes Take 1 Unive rs HCl 9-11 TAB-CAP/M2 ity of (NALTREXONE 20:54: by mouth [place] ORAL) 12 at Medical bedtime. Branch naltrexone 2020-0 Yes Take 1 Unive rs HCl 9-11 TAB-CAP/M2 ity of (NALTREXONE 20:54: by mouth [place] ORAL) 12 at Medical bedtime. Branch naltrexone 2020-0 Yes Take 1 Unive rs HCl 9-11 TAB-CAP/M2 ity of (NALTREXONE 20:54: by mouth [place] ORAL) 12 at Medical bedtime. Branch naltrexone 2020-0 Yes Take 1 Unive rs HCl 9-11 TAB-CAP/M2 ity of (NALTREXONE 20:54: by mouth [place] ORAL) 12 at Medical bedtime. Branch naltrexone 2020-0 Yes Take 1 Unive rs HCl 9-11 TAB-CAP/M2 ity of (NALTREXONE 20:54: by mouth [place] ORAL) 12 at Medical bedtime. Branch naltrexone 2020-0 Yes Take 1 Unive rs HCl 9-11 TAB-CAP/M2 ity of (NALTREXONE 20:54: by mouth [place] ORAL) 12 at Medical bedtime. Branch naltrexone 2020-0 Yes Take 1 Unive rs HCl 9-11 TAB-CAP/M2 ity of (NALTREXONE 20:54: by mouth [place] ORAL) 12 at Medical bedtime. Branch naltrexone 2020-0 Yes Take 1 Unive rs HCl 9-11 TAB-CAP/M2 ity of (NALTREXONE 20:54: by mouth [place] ORAL) 12 at Medical bedtime. Branch naltrexone 2020-0 Yes Take 1 Unive rs HCl 9-11 TAB-CAP/M2 ity of (NALTREXONE 20:54: by mouth [place] ORAL) 12 at Medical bedtime. Branch naltrexone 2020-0 Yes Take 1 Unive rs HCl 9-11 TAB-CAP/M2 ity of (NALTREXONE 20:54: by mouth [place] ORAL) 12 at Medical bedtime. Branch naltrexone 2020-0 Yes Take 1 Unive rs HCl 9-11 TAB-CAP/M2 ity of (NALTREXONE 20:54: by mouth [place] ORAL) 12 at Medical bedtime. Branch metoclopram 2020-0 Yes Univer s mayra HCl 10 9-09 ity of mg tablet 00:00: [place] [facility] metoclopram 2020-0 Yes Univer s mayra HCl 10 9-09 ity of mg tablet 00:00: [address] metoclopram 2020-0 Yes Univer s mayra HCl 10 9-09 ity of mg tablet 00:00: [place] [facility] metoclopram 2020-0 Yes Univer s mayra HCl 10 9-09 ity of mg tablet 00:00: [place] [facility] metoclopram 2020-0 Yes Univer s mayra HCl 10 9-09 ity of mg tablet 00:00: [place] [facility] metoclopram 2020-0 Yes Univer s mayra HCl 10 9-09 ity of mg tablet 00:00: [place] [facility] metoclopram 2020-0 Yes Univer s mayra HCl 10 9-09 ity of mg tablet 00:00: [place] [facility] metoclopram 2020-0 Yes Univer s mayra HCl 10 9-09 ity of mg tablet 00:00: [place] [facility] metoclopram 2020-0 Yes Univer s mayra HCl 10 9-09 ity of mg tablet 00:00: [place] [facility] metoclopram 2020-0 Yes Univer s mayra HCl 10 9-09 ity of mg tablet 00:00: [place] 00 Medical Branch metoclopram 2020-0 Yes Univer s mayra HCl 10 9-09 ity of mg tablet 00:00: [place] [facility] metoclopram 2020-0 Yes Univer s mayra HCl 10 9-09 ity of mg tablet 00:00: [place] [facility] metoclopram 2020-0 Yes Univer s mayra HCl 10 9-09 ity of mg tablet 00:00: [place] [facility] metoclopram 2020-0 Yes Univer s mayra HCl 10 9-09 ity of mg tablet 00:00: [place] [facility] metoclopram 2020-0 Yes Univer s mayra HCl 10 9-09 ity of mg tablet 00:00: [place] [facility] HYDROmorpho 2020-0 Yes 2mg Take 2 mg U nivers ne 2 mg 8-12 by mouth ity of tablet 00:00: daily. [place] [facility] HYDROmorpho 2020-0 Yes 2mg Take 2 mg U nivers ne 2 mg 8-12 by mouth ity of tablet 00:00: daily. [place] [facility] HYDROmorpho 2020-0 Yes 2mg Take 2 mg U nivers ne 2 mg 8-12 by mouth ity of tablet 00:00: daily. [place] [facility] HYDROmorpho 2020-0 Yes 2mg Take 2 mg U nivers ne 2 mg 8-12 by mouth ity of tablet 00:00: daily. [place] [facility] HYDROmorpho 2020-0 Yes 2mg Take 2 mg U nivers ne 2 mg 8-12 by mouth ity of tablet 00:00: daily. [place] [facility] HYDROmorpho 2020-0 Yes 2mg Take 2 mg U nivers ne 2 mg 8-12 by mouth ity of tablet 00:00: daily. [place] [facility] HYDROmorpho 2020-0 Yes 2mg Take 2 mg U nivers ne 2 mg 8-12 by mouth ity of tablet 00:00: daily. [place] [facility] HYDROmorpho 2020-0 Yes 2mg Take 2 mg U nivers ne 2 mg 8-12 by mouth ity of tablet 00:00: daily. [place] [facility] HYDROmorpho 2020-0 Yes 2mg Take 2 mg U nivers ne 2 mg 8-12 by mouth ity of tablet 00:00: daily. [place] [facility] HYDROmorpho 2020-0 Yes 2mg Take 2 mg U nivers ne 2 mg 8-12 by mouth ity of tablet 00:00: daily. Medical Branch HYDROmorpho 2020-0 Yes 2mg Take 2 mg U nivers ne 2 mg 8-12 by mouth ity of tablet 00:00: daily. Medical Branch HYDROmorpho 2020-0 Yes 2mg Take 2 mg U nivers ne 2 mg 8-12 by mouth ity of tablet 00:00: daily. Medical Branch HYDROmorpho 2020-0 Yes 2mg Take 2 mg U nivers ne 2 mg 8-12 by mouth ity of tablet 00:00: daily. Medical Branch HYDROmorpho 2020-0 Yes 2mg Take 2 mg U nivers ne 2 mg 8-12 by mouth ity of tablet 00:00: daily. Medical Branch HYDROmorpho 2020-0 Yes 2mg Take 2 mg U nivers ne 2 mg 8-12 by mouth ity of tablet 00:00: daily. Medical Branch hydrOXYchlo 2020-0 Yes 400mg Take 400 U nivers roQUINE 200 7-09 mg by ity of mg tablet 00:00: mouth daily. Medical Branch hydrOXYchlo 2020-0 Yes 400mg Take 400 U nivers roQUINE 200 7-09 mg by ity of mg tablet 00:00: mouth daily. Medical Branch hydrOXYchlo 2020-0 Yes 400mg Take 400 U nivers roQUINE 200 7-09 mg by ity of mg tablet 00:00: mouth daily. Medical Branch hydrOXYchlo 2020-0 Yes 400mg Take 400 U nivers roQUINE 200 7-09 mg by ity of mg tablet 00:00: mouth 00 daily. Medical Branch hydrOXYchlo 2020-0 Yes 400mg Take 400 U nivers roQUINE 200 7-09 mg by ity of mg tablet 00:00: mouth 00 daily. Medical Branch hydrOXYchlo 2020-0 Yes 400mg Take 400 U nivers roQUINE 200 7-09 mg by ity of mg tablet 00:00: mouth 00 daily. Medical Branch hydrOXYchlo 2020-0 Yes 400mg Take 400 U nivers roQUINE 200 7-09 mg by ity of mg tablet 00:00: mouth 00 daily. Medical Branch hydrOXYchlo 2020-0 Yes 400mg Take 400 U nivers roQUINE 200 7-09 mg by ity of mg tablet 00:00: mouth [place] 00 daily. Medical Branch hydrOXYchlo 2020-0 Yes 400mg Take 400 U nivers roQUINE 200 7-09 mg by ity of mg tablet 00:00: mouth [place] 00 daily. Medical Branch hydrOXYchlo 2020-0 Yes 400mg Take 400 U nivers roQUINE 200 7-09 mg by ity of mg tablet 00:00: mouth [place] 00 daily. Medical Branch hydrOXYchlo 2020-0 Yes 400mg Take 400 U nivers roQUINE 200 7-09 mg by ity of mg tablet 00:00: mouth [place] 00 daily. Medical Branch hydrOXYchlo 2020-0 Yes 400mg Take 400 U nivers roQUINE 200 7-09 mg by ity of mg tablet 00:00: mouth [place] 00 daily. Medical Branch hydrOXYchlo 2020-0 Yes 400mg Take 400 U nivers roQUINE 200 7-09 mg by ity of mg tablet 00:00: mouth [place] 00 daily. Medical Branch hydrOXYchlo 2020-0 Yes 400mg Take 400 U nivers roQUINE 200 7-09 mg by ity of mg tablet 00:00: mouth [place] 00 daily. Medical Branch hydrOXYchlo 2020-0 Yes 400mg Take 400 U nivers roQUINE 200 7-09 mg by ity of mg tablet 00:00: mouth [place] 00 daily. [facility] Branch losartan Yes losartan Unive rs 100 mg 2-26 100 mg ity of tablet 17:45: tablet [address] losartan Yes losartan Unive rs 100 mg 2-26 100 mg ity of tablet 17:45: tablet [address] losartan Yes losartan Unive rs 100 mg 2-26 100 mg ity of tablet 17:45: tablet [address] losartan Yes losartan Unive rs 100 mg 2-26 100 mg ity of tablet 17:45: tablet [address] losartan Yes losartan Unive rs 100 mg 2-26 100 mg ity of tablet 17:45: tablet [address] losartan Yes losartan Unive rs 100 mg 2-26 100 mg ity of tablet 17:45: tablet [address] losartan Yes losartan Unive rs 100 mg 2-26 100 mg ity of tablet 17:45: tablet [address] FLUoxetine Yes TAKE ONE Uni vers 40 mg 9-30 CAPSULE BY ity of capsule 00:00: MOUTH IN [place] 00 THE Medical MORNING Branch LORazepam Yes TAKE 1 Univer s 0.5 mg 9-30 TABLET BY ity of tablet 00:00: MOUTH TWICE A Medical DAY Branch NEEDED FOR ANXIETY FLUoxetine Yes TAKE ONE Uni vers 40 mg 9-30 CAPSULE BY ity of capsule 00:00: MOUTH IN [place] THE Medical MORNING Branch LORazepam Yes TAKE 1 Univer s 0.5 mg 9-30 TABLET BY ity of tablet 00:00: MOUTH TWICE A Medical DAY Branch NEEDED FOR ANXIETY FLUoxetine Yes TAKE ONE Uni vers 40 mg 9-30 CAPSULE BY ity of capsule 00:00: MOUTH IN [place] THE Medical MORNING Branch LORazepam Yes TAKE 1 Univer s 0.5 mg 9-30 TABLET BY ity of tablet 00:00: MOUTH TWICE A Medical DAY Branch NEEDED FOR ANXIETY FLUoxetine Yes TAKE ONE Uni vers 40 mg 9-30 CAPSULE BY ity of capsule 00:00: MOUTH IN [place] THE Medical MORNING Branch LORazepam Yes TAKE 1 Univer s 0.5 mg 9-30 TABLET BY ity of tablet 00:00: MOUTH TWICE A Medical DAY Branch NEEDED FOR ANXIETY FLUoxetine Yes TAKE ONE Uni vers 40 mg 9-30 CAPSULE BY ity of capsule 00:00: MOUTH IN [place] THE Medical MORNING Branch LORazepam Yes TAKE 1 Univer s 0.5 mg 9-30 TABLET BY ity of tablet 00:00: MOUTH TWICE A Medical DAY Branch NEEDED FOR ANXIETY FLUoxetine Yes TAKE ONE Uni vers 40 mg 9-30 CAPSULE BY ity of capsule 00:00: MOUTH IN [place] THE Medical MORNING Branch LORazepam Yes TAKE 1 Univer s 0.5 mg 9-30 TABLET BY ity of tablet 00:00: MOUTH TWICE A Medical DAY Branch NEEDED FOR ANXIETY FLUoxetine Yes TAKE ONE Uni vers 40 mg 9-30 CAPSULE BY ity of capsule 00:00: MOUTH IN [place] THE Medical MORNING Branch LORazepam Yes TAKE 1 Univer s 0.5 mg 9-30 TABLET BY ity of tablet 00:00: MOUTH TWICE A Medical DAY Branch NEEDED FOR ANXIETY FLUoxetine Yes TAKE ONE Uni vers 40 mg 9-30 CAPSULE BY ity of capsule 00:00: MOUTH IN THE Medical MORNING Branch LORazepam Yes TAKE 1 Univer s 0.5 mg 9-30 TABLET BY ity of tablet 00:00: MOUTH TWICE A Medical DAY Branch NEEDED FOR ANXIETY FLUoxetine Yes TAKE ONE Uni vers 40 mg 9-30 CAPSULE BY ity of capsule 00:00: MOUTH IN [place] THE Medical MORNING Branch LORazepam Yes TAKE 1 Univer s 0.5 mg 9-30 TABLET BY ity of tablet 00:00: MOUTH TWICE A Medical DAY Branch NEEDED FOR ANXIETY FLUoxetine Yes TAKE ONE Uni vers 40 mg 9-30 CAPSULE BY ity of capsule 00:00: MOUTH IN [place] THE Medical MORNING Branch LORazepam Yes TAKE 1 Univer s 0.5 mg 9-30 TABLET BY ity of tablet 00:00: MOUTH TWICE A Medical DAY Branch NEEDED FOR ANXIETY FLUoxetine Yes TAKE ONE Uni vers 40 mg 9-30 CAPSULE BY ity of capsule 00:00: MOUTH IN [place] THE Medical MORNING Branch LORazepam Yes TAKE 1 Univer s 0.5 mg 9-30 TABLET BY ity of tablet 00:00: MOUTH TWICE A Medical DAY Branch NEEDED FOR ANXIETY FLUoxetine Yes TAKE ONE Uni vers 40 mg 9-30 CAPSULE BY ity of capsule 00:00: MOUTH IN [place] THE Medical MORNING Branch LORazepam Yes TAKE 1 Univer s 0.5 mg 9-30 TABLET BY ity of tablet 00:00: MOUTH TWICE A Medical DAY Branch NEEDED FOR ANXIETY FLUoxetine Yes TAKE ONE Uni vers 40 mg 9-30 CAPSULE BY ity of capsule 00:00: MOUTH IN [place] THE Medical MORNING Branch LORazepam Yes TAKE 1 Univer s 0.5 mg 9-30 TABLET BY ity of tablet 00:00: MOUTH TWICE A Medical DAY Branch NEEDED FOR ANXIETY FLUoxetine Yes TAKE ONE Uni vers 40 mg 9-30 CAPSULE BY ity of capsule 00:00: MOUTH IN [place] THE Medical MORNING Branch LORazepam Yes TAKE 1 Univer s 0.5 mg 9-30 TABLET BY ity of tablet 00:00: MOUTH TWICE A Medical DAY Branch NEEDED FOR ANXIETY FLUoxetine Yes TAKE ONE Uni vers 40 mg 9-30 CAPSULE BY ity of capsule 00:00: MOUTH IN [place] THE Medical MORNING Branch LORazepam Yes TAKE 1 Univer s 0.5 mg 9-30 TABLET BY ity of tablet 00:00: MOUTH [place] [address] TWICE A Medical DAY Branch NEEDED FOR ANXIETY FLUoxetine Yes TAKE ONE Uni vers 40 mg 9-30 CAPSULE BY ity of capsule 00:00: MOUTH IN [place] THE Medical MORNING Branch LORazepam Yes TAKE 1 Univer s 0.5 mg 9-30 TABLET BY ity of tablet 00:00: MOUTH [place] [address] TWICE A Medical DAY Branch NEEDED FOR ANXIETY Vital Signs Vital Name Observation Time Observation Value Comments Source Systolic blood 2020-08-07 154 mm[Hg] University of pressure 21:09: [facility] Diastolic blood 2020-08-07 116 mm[Hg] University o f pressure 21:09:00 [facility] Heart rate 2020-08-07 98 /min [facility] :09:00 [facility] Body temperature 2020-08-07 36.72 Alexandra University of :09:00 [facility] Respiratory rate 2020-08-07 18 /min University of :09:00 [facility] Body weight 2020-08-07 53.071 kg University of :09:00 [facility] BMI 2020-08-07 22.85 kg/m2 University of 21:09:00 [facility] Oxygen saturation 2020-08-07 97 /min [facility] in Arterial blood 21:09:00 [facility] by Pulse oximetry Branch Systolic blood 2020-08-01 169 mm[Hg] University of pressure 21:09:00 [facility] Diastolic blood 2020-08-01 95 mm[Hg] University o f pressure 21:09:00 [facility] Heart rate 2020-08-01 103 /min University of 21:02:00 [facility] Body height 2020-08-01 152.4 cm University of 21:02:00 [facility] Body weight 2020-08-01 53.978 kg University of 21:02:00 [facility] BMI 2020-08-01 23.24 kg/m2 University of 21:02:00 [facility] Systolic blood 2020-03-20 138 mm[Hg] University of pressure 20:59:00 [facility] Diastolic blood 2020-03-20 86 mm[Hg] University o f pressure 20:59:00 [facility] Heart rate 2020-03-20 93 /min University of 20:59:00 [facility] Body height 2020-03-20 152.4 cm University of 20:59:00 [facility] Body weight 2020-03-20 54.432 kg University of 20:59:00 [facility] BMI 2020-03-20 23.44 kg/m2 University of 20:59:00 [facility] Oxygen saturation 2020-03-20 100 /min University of in Arterial blood 20:59:00 [facility] tricia by Pulse oximetry Branch Systolic blood 2020-02-07 158 mm[Hg] [facility] University o f pressure 17:37:00 didnt take pain [place] [facility] medication or Branch meds this AM Diastolic blood 2020-02-07 98 mm[Hg] [facility] University of pressure 17:37:00 didnt take pain [place] Medica l medication or Branch meds this AM Heart rate 2020-02-07 91 /min University of 17:35:00 [facility] Body height 2020-02-07 152.4 cm University of 17:35:00 [facility] Body weight 2020-02-07 54.432 kg University of 17:35:00 [facility] BMI 2020-02-07 23.44 kg/m2 University of 17:35:00 [facility] Oxygen saturation 2020-02-07 100 /min [place] of in Arterial blood 17:35:00 [facility] tricia by Pulse oximetry Branch Systolic blood 2020-02-07 158 mm[Hg] [facility] University o f pressure 17:37:00 didnt take pain [place] Medica l medication or Branch meds this AM Diastolic blood 2020-02-07 98 mm[Hg] [facility] University of pressure 17:37:00 didnt take pain [place] Medica [facility] medication or Branch meds this AM Heart rate 2020-02-07 91 /min University of 17:35:00 [facility] Body height 2020-02-07 152.4 cm University of 17:35: [facility] Body weight 2020-02-07 54.432 kg University of 17:35:00 [facility] BMI 2020-02-07 23.44 kg/m2 University of 17:35:00 [facility] Oxygen saturation 2020-02-07 100 /min [facility] in Arterial blood 17:35:00 [facility] by Pulse oximetry Branch Systolic blood 2019-11-19 119 mm[Hg] University of pressure 20:53:00 [facility] Diastolic blood 2019-11-19 88 mm[Hg] [place] o f pressure 20:53:00 [facility] Heart rate 2019-11-19 96 /min [facility] 20:52:00 [facility] Body height 2019-11-19 152.4 cm [facility] 20:52:00 [facility] Body weight 2019-11-19 58.514 kg [facility] 20:52:00 [facility] BMI 2019-11-19 25.19 kg/m2 [facility] 20:52:00 [facility] Oxygen saturation 2019-11-19 100 /min [facility] [place] Arterial blood 20:52:00 [facility] by Pulse oximetry [place] Procedures Procedure Date / Time Performing Clinician Source Performed AUTHORIZATION FOR 2020-08-29 05:01:00 Doctor Unassigned, No [facility] XR LUMBAR SPINE 3 VW 2020-08-07 21:54:26 Lynsey Montes [facility] NOTICE OF PRIVACY 2020-08-07 20:51:37 Doctor Unassigned, No [facility] PRACTICES [facility] CONSENT/REFUSAL FOR 2020-08-07 20:51:16 Doctor Unassigned, No [facility] [place] DIAGNOSIS AND TREATMENT [facility] SCANNED LAB RESULTS 2019-11-03 05:01:00 Doctor Unassigned, No Un [facility] [place] [facility] Encounters Start End Encounter Admission Attending Care Care Encounter Source Date/Time Date/Time Type Type Clinicians Facility Department ID 2021-01-07 Emergency [facility] [id number] Univers 22:14:34 ity of [facility] 2021-03-08 2021-03-08 Letter ROGER [place] [id number] Univers 00:00:00 00:00:00 (Out) Archana MONSON [id number] it y of [facility] [id number] Konrad as [id number] [place] [id number] Branch 2021-03-07 2021-03-07 Laboratory Only, Ang Db Test [facility] [id number] Univers 13:20:00 13:35:00 Only Unknown, Attending HEALTH [id number] ity of [facility] [id number] Konrad as YUKO?BLEA [phone] Ct jaylynmike [facility] [address] [place] MEDICAL OFFICE [facility] 2021-03-07 2021-03-07 Outpatient R [facility] [id number] Univers 13:20:00 13:20:00 [id number] ity of [facility] 2021-03-07 2021-03-07 [facility] [id number] Univers 13:20:00 13:20:00 STEFAN ity of [facility] 2020-10-04 2020-10-04 Outpatient SHELLY Akbar, [facility] [id number] [facility] 12:00:00 12:00:00 Delmer [id number] [facility] 2020-08-29 2020-08-29 Orders Doctor ROGER 1.2.840.114 [id number] Univers 00:00:00 00:00:00 Only Unassigned, ERMIAS [id number] ity of [place] [facility] [id number] Konrad as [phone] [facility] [address] [place] 2020-08-07 2020-08-07 Emergency [facility] 1.2.840.114 [id number] Univers 16:14:00 17:59:00 Lynsey Hernandez [id number] [id number] [phone] [facility] [address] [place] 2020-08-01 2020-08-01 [facility] 1.2.840.114 [id number] Univers 15:57:39 16:36:24 Visit Javier Hernandez [id number] [id number] [facility] [phone] Ct donovan correa 092 [facility] 2020-08-01 2020-08-01 Outpatient R JAVIER CARLIN [facility] [id number] Univers 16:00:00 16:00:[id number] [facility] 2020-08-01 2020-08-01 Outpatient JAVIER VOGEL [facility] [id number] Univers 16:00:00 16:00:[address] [facility] 2020-05-08 2020-05-08 Outpatient XAVI [facility] [id number] Univers 13:45:00 13:45:00 ESTHER [id number] [facility] 2020-05-08 2020-05-08 Outpatient Andres HURLEY [facility] [id number] Univers 13:45:00 13:45:00 ESTHER [facility] 2020-03-20 2020-03-20 Office Raegan [facility] 1.2.840.114 [id number] Univers 14:52:10 15:12:10 Visit Javier Hernandez [id number] ity [facility] [id number] [phone] Ct dicma [place]al [address] [place] [address] 2020-03-20 2020-03-20 Outpatient JAVIER VOGEL [facility] [id number] Univers 14:40:00 14:40:00 JAVIER CARLIN [id number] [facility] 2020-03-20 2020-03-20 Outpatient JAVIER VOGEL [facility] [id number] Univers 14:40:00 14:40:00 JAVIER CARLIN [facility] 2020-02-07 2020-02-07 Outpatient JAVIER VOGEL [facility] [id number] Univers 16:20:00 16:20:00 RAEGANJAVIER EL [id number] [facility] 2020-02-07 2020-02-07 Office Raegan [facility] 1.2.840.114 [id number] Univers 11:24:44 12:11:13 Visit Javier Hernandez [id number] ity [facility] [id number] [phone] Ct dical [place]al [address] [place] [address] 2020-02-07 2020-02-07 Office Raegan, [facility] 1.2.840.114 [id number] 11:24:44 12:11:13 Visit Javier Hernandez [id number] [place] [id number] Professio [phone] [address] 2020-02-07 2020-02-07 Outpatient JAVIER VOGEL [facility] [id number] Univers 11:20:00 11:20:[address] [facility] 2020-01-27 2020-01-27 Outpatient [facility] [id number] Univers 13:00:00 13:00:00 [id number] ity of [facility] 2020-01-27 2020-01-27 Outpatient JAVIER VOGEL [facility] [id number] Univers 13:00:00 13:00:[address] [facility] 2020-01-07 2020-01-07 Telephone Raegan [facility] 1.2.840.114 [id number] Univers 00:00:00 00:00:00 Javier Hernandez [id number] [id number] [phone] Ct dic[address] 2019-12-13 2019-12-13 Telephone Raegan [facility] 1..840.114 [id number] Univers 00:00:00 00:00:00 Javier Sheila [facility] [id number] ity of [facility] [id number] [phone] [address] 2019-12-03 2019-12-03 Outpatient JAVIER VOGEL [facility] [id number] Univers 10:40:00 10:40:00 [facility]AEGANJAVIER [facility] [id number] [facility] 2019-11-25 2019-11-25 Telephone Raegan [facility] 1.2.840.114 [id number] Univers 00:00:00 00:00:00 Javier Hernandez [id number] [id number] [phone] Ct dical [address] 2019-11-19 2019-11-19 Office Raegan [facility] 1.2.840.114 [id number] Univers 15:23:41 16:25:01 Visit Javier Hernandez [id number] ity of [place] [id number] [place] Professio [phone] Ct dical nal 092 [facility] 2019-11-19 2019-11-19 Outpatient JAVIER VOGEL [facility] [id number] Univers 15:40:00 15:40:00 RAEGAN JAVIER [id number] ity of [facility] 2019-11-19 2019-11-19 Outpatient JAVIER VOGEL [facility] [id number] Univers 15:40:00 15:40:[address] [facility] 2019-11-03 2019-11-03 Orders Doctor DURAN 1.2.840.114 [id number] Univers 00:00:00 00:00:00 Only Unassigned, ERMIAS [id number] ity of [place] [facility] [id number] Konrad as [phone] [address] Results Test Description Test Time Test Comments Results Result [facility] e Comments XR LUMBAR SPINE 2020-07-10 No gross fracture or University of 3 VW 1 spondylolisthesis. [facility] 22:37:37 360 degrees surgical Bran ch fusion hardware at L4-5 and L5-S1 demonstrates noevidence for loosening or failure. This exam was interpreted by a neuroradiology Fellowship trained and boardcertified radiologist. [id number]: [id number] CLINICAL HISTORY: ?Back pain ORDERING PHYSICIAN: ?LYNSEY MONTES TECHNIQUE: ?AP, lateral and coned-down lateral radiographs of the lumbarspine were performed. COMPARISON: ?None. FINDINGS: ?360 degree fusion hardware is present from L4 through S1. Thereis no evidence for hardware loosening or failure. The lumbar vertebralbodies demonstrate no compression fracture. There is no spondylolisthesis.No scoliotic deformity is apparent. [facility], Radiant Results Inft User - 08/07/2020 5:39 PM CDT CLINICAL HISTORY: Back painORDERING PHYSICIAN: LYNSEY MONTESTECHNIQUE: AP, lateral and coned-down lateral radiographs of the lumbarspine were performed.COMPARISON : None.FINDINGS: 360 degree fusion hardware is present from L4 through S1. Thereis no evidence for hardware loosening or failure. The lumbar vertebralbodies demonstrate no compression fracture. There is no spondylolisthesis.No scoliotic deformity is apparent.IMPRESSIONN o gross fracture or spondylolisthesis.36 0 degrees surgical fusion hardware at L4-5 and L5-S1 demonstrates noevidence for loosening or failure.This exam was interpreted by a neuroradiology Fellowship trained and boardcertified radiologist.RL [id number]: [id number] signed by Orion Ardon MD at 08/07/2020 5:37 PM
[2021-03-09 04:44] LABS: SARS-COV-2 RT PCR NEGATIVE (NEGATIVE)
--- NOTE | 2021-03-09 07:08 | ER ---
Nurse's Notes [facility] Name: Sydney Oliveira Age: 55 yrs Sex: Female : 1965 Arrival Date: 03/09/2021 Time: : Bed DIS1 Private MD: Diagnosis: Pain in throat;Fever, unspecified Presentation: 03/09 03:46 Chief complaint: Patient states: she is having headache, fever, sore throat, body bb aches, chills was tested for Covid on Friday which was negative she feels like it is strep throat. Coronavirus screen: Client presents with at least one sign or symptom that may indicate coronavirus-19. Standard/surgical mask placed on the client. Ebola Screen: No symptoms or risks identified at this time. Initial Sepsis Screen: Does the patient meet any 2 criteria? No. Patient's initial sepsis screen is negative. Does the patient have a suspected source of infection? No. Patient's initial sepsis screen is negative. Risk Assessment: Do you want to hurt yourself or someone else? Patient reports no desire to harm self or others. Onset of symptoms was March 06, 2021. 03:46 Method Of Arrival: Ambulatory 03:46 Acuity: VILLA 4 bb Triage Assessment: 03:49 General: Appears in no apparent distress. uncomfortable, Behavior is calm, cooperative. bb Pain: Complains of pain in throat. EENT: Reports pain when swallowing. Neuro: Level of Consciousness is awake, alert, obeys commands, Oriented to person, place, time, situation. Cardiovascular: Capillary refill < 3 seconds Patient's skin is warm and dry. Respiratory: Respiratory effort is even, unlabored. GI: No signs and/or symptoms were reported involving the gastrointestinal system. Derm: Skin is pink, warm \T\ dry. Musculoskeletal: Circulation, motion, and sensation intact. 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 - Social history:: Smoking status: Patient reports the use of cigarette tobacco products, smokes one-half pack cigarettes per day. Vital Signs: 03:46 BP 151 / 104; Pulse 74; Resp 16 S; Temp 98.6(O); Pulse Ox 100% on R/A; Weight 53.52 kg bb (R); Height 5 ft. 4 in. (162.56 cm) (R); Pain 7/10; 03:46 Body Mass Index 20.25 (53.52 kg, 162.56 cm) bb ED Course: 02:31 Patient arrived in ED. [facility] 03:49 Triage completed. bb 03:49 Arm band placed on Patient placed in waiting room, Patient notified of wait time. bb covid, flu and strep sent. 06:23 Travis Whitlock PA is [facility] 06:23 Poncho Snow MD is Attending Physician. [facility] 07:03 Sage Astorga MD is Attending Physician. rn Administered Medications: No medications were administered Outcome: 08:24 Patient left the ED. [email or web address] Signatures: Travis Whitlock PA PA jmm Ballard, Brenda RN RN Sage Rangel MD MD rn Leal, Jahala, RN RN jlYaquelin Calvo
--- NOTE | 2021-03-09 07:08 | EDPHYS ---
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 - Social history:: Smoking status: Patient reports the use of cigarette tobacco products, smokes one-half pack cigarettes per day. Vital Signs: 03:46 BP 151 / 104; Pulse 74; Resp 16 S; Temp 98.6(O); Pulse Ox 100% on R/A; Weight 53.52 kg bb (R); Height 5 ft. 4 in. (162.56 cm) (R); Pain 7/10; 03:46 Body Mass Index 20.25 (53.52 kg, 162.56 cm) MDM: 07:03 Patient medically screened. rn 03/09 03:55 Order name: COVID-19/FLU A+B (Document "Date of Onset" if Symptomatic); Complete Time: bb 07:05 03/09 03:55 Order name: Strep; Complete Time: 07:05 bb 03/09 05:13 Order name: Throat Culture EDMS Administered Medications: No medications were administered Disposition Summary: 03/09/21 07:07 Eloped Disposition: before being seen by provider rn Problem: new rn Symptoms: are unchanged rn Reason: unknown rn Condition: Undetermined rn Diagnosis - Pain in throat rn - Fever, unspecified rn Followup: rn - With: Private Physician - When: As needed - Reason: Recheck today's complaints, Re-evaluation by your physician Signatures: Dispatcher [employer] Lamar Villa RN RN bb Sage Astorga MD MD rn
[2021-03-09 08:29] VITALS: BP 151/104; TEMP 98.6; O2SAT 100
== END 2021-03-09 08:24 | disposition left against medical advice (07) ==
LOC: ER 02:26
DX: R50.9 Fever, unspecified (principal); Z20.822 Contact with and (suspected) exposure to COVID-19
CPT/HCPCS: 87070; 87081; 0240U; 99281

== ENCOUNTER 2022-12-28 05:10 | Emergency (ER) | payer OTHER ==
--- OUTSIDE RECORDS SUMMARY | 2022-12-28 05:14 | XMS REPORT | Continuity of Care Document ---
:1965 Author Organization [facility] t Address [address] [place] [address] Care Team Providers Name Role Phone Durga Lagos Primary Care Physician Tamar VINSON Attending Clinician Unavailable Tamar Nguyen Attending Clinician SHAW VILLEGAS Attending Clinician Unavailable Shaw Villegas MD Attending Clinician Doctor Unassigned, [place] Attending Clinician Unavailable Archana Hammond RN Attending Clinician Unavailable Only, Ankush Db Test Attending Clinician Unavailable Unknown, Attending Attending Clinician Unavailable STEFAN JACOBS Attending Clinician Unavailable Delmer Akbar Attending Clinician Unavailable Lynsey Montes DO Attending Clinician Javier Carlin MD Attending Clinician JAVIER CARLIN Attending Clinician Unavailable JAVIER CARLIN Attending Clinician Unavailable ESTHER HURLEY Attending Clinician Unavailable Roger Mckay Attending Clinician SHAW VILLEGAS Admitting Clinician Unavailable Delmer Akbar Admitting Clinician Unavailable Payers Payer Name Policy Type Policy Number Effective Date Expiration Date S lovely [employer] [place] - [id number] 2015 OUT OF STATE 00:00:00 [employer] MEDICARE OUT [id number] 2022 OF NETWORK 00:00:00 [facility] [id number] 2021 COMM 00:00:00 Problems Condition Condition Condition Status Onset Resolution Last Treating Co mments Source Name Details Category Date Date Treatment Clinician Date M54.16 - M54.16 - Diagnosis Active 2018-05-14 Memoria RADICULOPA RADICULOPA 3-04 10:32:00 l THY, THY, 00:01: Shaun LUMBAR LUMBAR 00 REGION REGION Active 05/11/2018 MICHAEL Dunn No known No known Disease Unive rs active active ity of problems problems [facility] Anxiety Anxiety Problem Resolve 2018-05-17 M emoria (finding) (finding) d 00:04:26 l Resolved Shaun Problem 05/17/2018 [facility] MICHAEL Dunn Carpal Carpal Problem Resolve 2018-05-17 Mem oria tunnel tunnel d 00:04:26 l syndrome syndrome Feliberto n (disorder) (disorder) Resolved Problem 05/17/2018 [facility] MICHAEL Dunn Chronic Chronic Problem Resolve 2018-05-17 M emoria headache headache d 00:04:26 l disorder disorder Feliberto n (disorder) (disorder) Resolved Problem 05/17/2018 [facility] MICHAEL Dunn 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 00:04:26 l cervical cervical Feliberto n interverte interverte bral disc bral disc (disorder) (disorder) Resolved Problem 05/17/2018 [facility] MICHAEL Dunn Hypertensi Hypertens Problem Resolve 2018-05-17 Memoria ve lore d 00:04:26 l disorder, disorder, Herm brett systemic systemic arterial arterial (disorder) (disorder) Resolved Problem 05/17/2018 [facility] OPID Shaun Insomnia Insomnia Problem Resolve 2018-05-17 Memoria (disorder) (disorder) d 00:04:26 l Resolved [place] Problem 05/17/2018 Inna Acosta OPIFroylan Shaun Memory Memory Problem Resolve 2018-05-17 Mem oria impairment impairment d 00:04:26 l (finding) (finding) Herm brett Resolved Problem 05/17/2018 Inna Acosta OPIFroylan [place] Ventricula Ventricul Problem Resolve 2018-05-17 Memoria r ar d 00:04:26 l premature premature Herm brett beats beats (disorder) (disorder) [facility] [place] Slurred Slurred Problem Resolve 2018-05-17 M emoria speech speech d 00:04:26 l (finding) (finding) Herm brett Resolved Problem 05/17/2018 Inna Acosta OPIFroylan [place] Tinnitus Tinnitus Problem Resolve 2018-05-17 Memoria (finding) (finding) d 00:04:26 l Resolved [place] [facility] MICHAEL [place] Allergies, Adverse Reactions, Alerts Allergy Allergy Status Severity Reaction(s) Onset Inactive Treating Comm ents Source Name Type Date Date Clinician Penicill DA Active MO ITCH,UPSET 2008-[address] [facility] [place] morphine DA Active SV SWELLING 2008-03 [facility] [place] codeine DA Active MO ITCH 2008-03 [facility] [place] Penicill DA Active MO 2008-03 [facility] [place] morphine DA Active SV 2008-03 [facility] 0[facility] [place] codeine DA Active MO 2008-03 [facility] 0[facility] [place] CODEINE DRUG Active Hives Univers INGREDI ity [facility] MORPHINE DRUG Active Hives Univers INGREDI ity [facility] PENICILL Drug Active Hives Univers INS Class ity [facility] Codeine Propensi Active Other - See Tachycard Univers ty to comments ia ity of adverse [place] reaction Medical s Branch Morphine Propensi Active Other - See tachycar d Univers ty to comments ia ity of adverse [place] reaction Medical s Branch Penicill Propensi Active Other - See Tachycar d Univers ins ty to comments ia ity of adverse [place] reaction Medical s Branch Penicill Propensi Active Other - See Tachycar d Univers ins ty to comments ia ity of adverse [place] reaction Medical s Branch Vicodin Vicodin Active Memoria l [place] penicill penicill Active Memori a ins ins l [place] codeine codeine Active Memoria l Shaun morphine morphine Active Memori a l [place] Social History Social Habit Start Date Stop Date Quantity Comments Source History of tobacco Smokes tobacco Un iversity of use daily [facility] Sexual orientation Univer sity [facility] Exposure to 2022-07-27 2022-08-06 Not sure University SARS-CoV-2 (event) 00:00:00 15:01:00 [facility] Alcohol intake 2020-08-01 2020-08-01 Current University of 00:00:00 00:00:00 non-drinker of [facility] alcohol [place] (finding) Tobacco use and 2019-11-19 2019-11-19 Smokeless Universit y of exposure 00:00:00 00:00:00 tobacco non-user [facility] dical [place] History of Social 2019-11-19 2019-11-19 Univers ity of function 00:00:00 00:00:00 [facility] Social History 2015-11-21 2015-11-21 [facility] sheree 15:38:19 15:38:19 Sex [birth year] Universit y of 00:00:00 00:00:00 [facility] Smoking Status Start Date Stop Date Source Smokes tobacco daily 2019-11-19 00:00:00 Univers ity of [facility] Medications Ordered Filled Start Stop Current Ordering Indication Dosage Frequency Signature Comments Components Source Medication Medication Date Date Medication? Clinician (SIG) Name Name NaCl 0.9% 2022- No 1000mL at 999 Uni vers (NS) bolus 08-06-31 mL/hr, ity of infusion 23:00: 00:02 1,000 mL, [place] 1,000 mL 00 :00 IV Medical Infusion, Branch ONCE, 1 dose, On Fri08/06/22 at 1800, STAT methocarbam 2022- No 500mg 500 mg, U nivers oL 5-30 05-30 Oral, ity of (ROBAXIN) 23:00: 22:08 ONCE[place] 500 [place] :00 dose, On Medic al mg [facility] 08/06/22 at 1800, Routine ondansetron 2022- No 4mg 4 mg, Slow Univers (ZOFRAN 5-30 05-30 IV Push, ity of (PF)) 23:00: 21:59 ONCE, 1 [place] injection 4 00 :00 dose, On Medi tricia mg [facility] 08/06/22 at 1800, KIM ciprofloxac 2021-03- No 500mg 500 mg, U nivers in HCl 0-06 10-06 Oral, ONCE ity of (CIPRO) 04:30: 04:03 NOW, 1 [place] tablet 500 00 :00 dose, On Medic al mg [facility] 12/12/21 at 2330, KIM
Re ason for Anti-Infec tive: Documented Infection< br>Documen micky Infection Site: Abdominal< br>Duratio n of Therapy: Other (see Comments) NaCl 0.9% 2021-03 Yes 1000mL at 999 Univ ers (NS) IV 0-06 mL/hr, ity of infusion 03:00: Intravenou [place] 1,000 mL 00 s, Medical CONTINUOUS Branch , Starting on Fri12/12/21 at 2200, Until Discontinu ed, Routine ketorolac 2021-03- No 30mg 30 mg, Unive rs (TORADOL) 0-06 10-06 Slow IV ity of injection 03:00: 02:13 Push, [place] 30 mg 00 :00 ONCE, 1 Medical dose, On Branch Fri12/12/21 at 2200, Routine dicyclomine 2021-03- No 20mg 20 mg, Uni vers (BENTYL) 0-06 10-06 Intramuscu ity of injection 02:45: 02:15 [place], ONCE [place] 20 mg 00 :00 NOW, 1 Medical dose, On Branch Fri12/12/21 at 2145, Routine iopamidol 2021-03- No [id number] 75mL 75 mL, Univers (ISOVUE 0-06 10-06 Intravenou ity o f 370-500 mL) 02:31: 02:45 s, ONCE, 1 [place] injection 00 :00 dose, On Medica l 75 mL Wed Branch 12/12/21 at 2145, Routine dicyclomine 2021-03 Yes [id number] 20mg Take 1 Univers 20 mg 0-05 tablet by ity of tablet 00:00: mouth [place] 00 every 6 Medical (six) Branch hours as needed for Abdominal pain. ondansetron 2021-03 Yes [id number] 4mg Take 1 Univers (ZOFRAN) 4 0-05 tablet by ity of mg tablet 00:00: mouth [place] 00 every 8 Medical (eight) Branch hours as needed for Nausea and Vomiting (N/V). dicyclomine 2021-03 Yes [id number] 20mg Take 1 Univers 20 mg 0-05 tablet by ity of tablet 00:00: mouth [place] 00 every 6 Medical (six) Branch hours as needed for Abdominal pain. ondansetron 2021-03 Yes [id number] 4mg Take 1 Univers (ZOFRAN) 4 0-05 tablet by ity of mg tablet 00:00: mouth [place] 00 every 8 Medical (eight) Branch hours as needed for Nausea and Vomiting (N/V). ciprofloxac 2021-03- No [id number] 500mg Take 1 Univers in HCl 500 0-05 10-11 tablet by ity of mg tablet 00:00: 04:59 mouth in [place] 00 :00 the Medical morning Branch and 1 tablet in the evening. Do all this for 5 days. naltrexone 2020- No Take 1 Univ ers HCl 5-25 05-25 TAB-CAP/M2 ity of (NALTREXONE 21:07: 00:00 by mouth [place] ORAL) 06 :00 at Medical bedtime. Branch gabapentin 2019-03- No Take by Uni vers ER 300 mg 1-30 11-30 mouth ity of tablet, 18:02: 00:00 daily. [place] extended 36 :00 Medical release 24 Branch hr gabapentin 2019-03- No Take by Uni vers ER 300 mg 1-30 11-30 mouth ity of tablet, 18:02: 00:00 daily. [place] extended 36 :00 Medical release 24 Branch hr losartan 2019-03 Yes losartan Unive rs 100 mg 1-30 100 mg ity of tablet 17:35: tablet [place] 25 Medical Branch losartan 2019-03 Yes losartan Unive rs 100 mg 1-30 100 mg ity of tablet 17:35: tablet [address] losartan 2019-03 Yes losartan Unive rs 100 mg 1-30 100 mg ity of tablet 17:35: tablet [address] losartan 2019-03 Yes losartan Unive rs 100 mg 1-30 100 mg ity of tablet 17:35: tablet [address] losartan 2019-03 Yes losartan Unive rs 100 mg 1-30 100 mg ity of tablet 17:35: tablet [address] losartan 2019-03 Yes losartan Unive rs 100 mg 1-30 100 mg ity of tablet 17:35: tablet [address] losartan 2019-03 Yes losartan Unive rs 100 mg 1-30 100 mg ity of tablet 17:35: tablet [address] losartan 2019-03 Yes losartan Unive rs 100 mg 1-30 100 mg ity of tablet 11:35: tablet [address] losartan 2019-03 Yes losartan Unive rs 100 mg 1-30 100 mg ity of tablet 11:35: tablet [address] losartan 2019-03 Yes losartan Unive rs 100 mg 1-30 100 mg ity of tablet 11:35: tablet [address] losartan 2019-03 Yes losartan Unive rs 100 mg 1-30 100 mg ity of tablet 11:35: tablet [address] losartan 2019-03 Yes losartan Unive rs 100 mg 1-30 100 mg ity of tablet 11:35: tablet [address] gabapentin 2019-03 Yes [id number] 600mg Take 1 Univers ER 600 mg 1-30 tablet by ity o f tablet, 00:00: mouth [place] extended 00 daily. Medical release 24 Branch hr gabapentin 2019-03 Yes [id number] 600mg Take 1 Univers ER 600 mg 1-30 tablet by ity o f tablet, 00:00: mouth [place] extended 00 daily. Medical release 24 Branch hr gabapentin 2019-03 Yes [id number] 600mg Take 1 Univers ER 600 mg 1-30 tablet by ity o f tablet, 00:00: mouth [place] extended 00 daily. Medical release 24 Branch hr gabapentin 2019-03 Yes [id number] 600mg Take 1 Univers ER 600 mg 1-30 01 tablet by ity o f tablet, 00:00: mouth [place] extended 00 daily. Medical release 24 Branch hr gabapentin 2019-03 Yes [id number] 600mg Take 1 Univers ER 600 mg 1-30 01 tablet by ity o f tablet, 00:00: mouth [place] extended 00 daily. Medical release 24 Branch hr gabapentin 2020-1 Yes [id number] 600mg Take 1 Univers ER 600 mg 1-30 01 tablet by ity o f tablet, 00:00: mouth [place] extended 00 daily. Medical release 24 Branch hr gabapentin 2020-1 Yes [id number] 600mg Take 1 Univers ER 600 mg 1-30 01 tablet by ity o f tablet, 00:00: mouth [place] extended 00 daily. Medical release 24 Branch hr gabapentin 2020-1 Yes [id number] 600mg Take 1 Univers ER 600 mg 1-30 01 tablet by ity o f tablet, 00:00: mouth [place] extended 00 daily. Medical release 24 Branch hr gabapentin 2020-1 Yes [id number] 600mg Take 1 Univers ER 600 mg 1-30 01 tablet by ity o f tablet, 00:00: mouth [place] extended 00 daily. Medical release 24 Branch hr gabapentin 2020-1 Yes [id number] 600mg Take 1 Univers ER 600 mg 1-30 01 tablet by ity o f tablet, 00:00: mouth [place] extended 00 daily. Medical release 24 Branch hr gabapentin 2020-1 Yes [id number] 600mg Take 1 Univers ER 600 mg 1-30 01 tablet by ity o f tablet, 00:00: mouth [place] extended 00 daily. Medical release 24 Branch hr gabapentin 2020-1 Yes [id number] 600mg Take 1 Univers ER 600 mg [...] 10 9-09 ity of mg tablet 00:00: [place] [facility] metoclopram 2020-0 Yes Univer s mayra HCl 10 9-09 ity of mg tablet 00:00: [place] [facility] metoclopram 2020-0 Yes Univer s mayra HCl 10 9-09 ity of mg tablet 00:00: [facility] metoclopram 2020-0 Yes Univer s mayra HCl 10 9-09 ity of mg tablet 00:00: [place] [facility] metoclopram 2020-0 Yes Univer s mayra HCl 10 9-09 ity of mg tablet 00:00: [facility] metoclopram 2020-0 Yes Univer s mayra HCl 10 9-09 ity of mg tablet 00:00: [place] [facility] metoclopram 2020-0 Yes Univer s mayra HCl 10 9-09 ity of mg tablet 00:00: [place] [facility] metoclopram 2020-0 Yes Univer s mayra HCl 10 9-09 ity of mg tablet 00:00: [place] [facility] metoclopram 2020-0 Yes Univer s mayra HCl 10 9-09 ity of mg tablet 00:00: [place] [facility] metoclopram 2020-0 Yes Univer s mayra HCl 10 9-09 ity of mg tablet 00:00: [place] [facility] metoclopram 2020-0 Yes Univer s mayra HCl 10 9-09 ity of mg tablet 00:00: [place] [facility] metoclopram 2020-0 Yes Univer s mayra HCl 10 9-09 ity of mg tablet 00:00: [place] [facility] metoclopram 2020-0 Yes Univer s mayra HCl 10 9-09 ity of mg tablet 00:00: [place] [facility] metoclopram 2020-0 Yes Univer s mayra HCl 10 9-09 ity of mg tablet 00:00: [place] [facility] Branch metoclopram 2020-0 Yes Univer s mayra HCl 10 9-09 ity of mg tablet 00:00: [place] [facility] metoclopram 2020-0 Yes Univer s mayra HCl 10 9-09 ity of mg tablet 00:00: [place] [address] Medical Branch metoclopram 2020-0 Yes Univer s mayra HCl 10 9-09 ity of mg tablet 00:00: [place] [address] Medical Branch metoclopram 2020-0 Yes Univer s mayra HCl 10 9-09 ity of mg tablet 00:00: [place] [facility] HYDROmorpho 2020-0 Yes 2mg Take 2 mg U nivers ne 2 mg 8-12 by mouth ity of tablet 00:00: daily. [place] [facility] Branch HYDROmorpho 2020-0 Yes 2mg Take 2 mg U nivers ne 2 mg 8-12 by mouth ity of tablet 00:00: daily. [place] [facility] Branch HYDROmorpho 2020-0 Yes 2mg Take 2 mg U nivers ne 2 mg 8-12 by mouth ity of tablet 00:00: daily. [place] [facility] HYDROmorpho 2020-0 Yes 2mg Take 2 mg U nivers ne 2 mg 8-12 by mouth ity of tablet 00:00: daily. [place] [facility] HYDROmorpho 2020-0 Yes 2mg Take 2 mg U nivers ne 2 mg 8-12 by mouth ity of tablet 00:00: daily. [place] [facility] HYDROmorpho 2020-0 Yes 2mg Take [...] by mouth ity of tablet 00:00: daily. [place] [facility] HYDROmorpho 2020-0 Yes 2mg Take 2 mg U nivers ne 2 mg 8-12 by mouth ity of tablet 00:00: daily. [place] [facility] HYDROmorpho 2020-0 Yes 2mg Take 2 mg U nivers ne 2 mg 8-12 by mouth ity of tablet 00:00: daily. [place] [facility] HYDROmorpho 2020-0 Yes 2mg Take 2 mg U nivers ne 2 mg 8-12 by mouth ity of tablet 00:00: daily. [place] [facility] HYDROmorpho 2020-0 Yes 2mg Take 2 mg U nivers ne 2 mg 8-12 by mouth ity of tablet 00:00: daily. [place] [facility] HYDROmorpho 2020-0 Yes 2mg Take 2 mg U nivers ne 2 mg 8-12 by mouth ity of tablet 00:00: daily. [place] [facility] HYDROmorpho 2020-0 Yes 2mg Take 2 mg U nivers ne 2 mg 8-12 by mouth ity of tablet 00:00: daily. [place] [facility] HYDROmorpho 2020-0 Yes 2mg Take 2 mg U nivers ne 2 mg 8-12 by mouth ity of tablet 00:00: daily. [place] [facility] HYDROmorpho 2020-0 Yes 2mg Take 2 mg U nivers ne 2 mg 8-12 by mouth ity of tablet 00:00: daily. [place] [facility] HYDROmorpho 2020-0 Yes 2mg Take 2 mg U nivers ne 2 mg 8-12 by mouth ity of tablet 00:00: daily. [place] 00 Medical Branch hydrOXYchlo 2020-0 Yes 400mg Take [...] mg tablet 00:00: mouth [place] 00 daily. [facility] Branch hydrOXYchlo 2020-0 Yes 400mg Take 400 U nivers roQUINE 200 7-09 mg by ity of mg tablet 00:00: mouth [place] 00 daily. [facility] Branch hydrOXYchlo 2020-0 Yes 400mg Take 400 U nivers roQUINE 200 7-09 mg by ity of mg tablet 00:00: mouth [place] 00 daily. [facility] Branch hydrOXYchlo 2020-0 Yes 400mg Take 400 U nivers roQUINE 200 7-09 mg by ity of mg tablet 00:00: mouth [place] 00 daily. [facility] Branch Tylenol Yes PO, 0 Memoria 3-07 Refill(s) l 20:24: Shaun 00 ondansetron Yes 4 mg = 1 Me moria 4 mg oral 3-07 tab, PO, l tablet 20:24: Q8H, 0 Shaun 00 Refill(s) Naltrexone Yes 0 Memoria 3-07 Refill(s) l 20:24: [place] 00 FLUoxetine 2018- Yes 40 mg = 1 Me moria 40 mg oral 3-07 cap, PO, l capsule 20:24: Daily, 0 [place] n 00 Refill(s) losartan Yes losartan Unive rs 100 mg 2-26 100 mg ity of tablet 17:45: tablet [address] losartan Yes losartan Unive rs 100 mg 2-26 100 mg ity of tablet 17:45: tablet [address] losartan Yes losartan Unive rs 100 mg 2-26 100 mg ity of tablet 17:45: tablet [address] losartan Yes losartan Unive rs 100 mg 2-26 100 mg ity of tablet 17:45: tablet [address] losartan Yes losartan Unive rs 100 mg 2-26 100 mg ity of tablet 17:45: tablet [address] losartan Yes losartan Unive rs 100 mg 2-26 100 mg ity of tablet 17:45: tablet [address] losartan 2019-0 Yes losartan Unive rs 100 mg 2-26 100 mg ity of tablet 17:45: tablet [place] 56 Medical Branch FLUoxetine Yes TAKE ONE Uni vers 40 mg 9-30 CAPSULE BY ity of capsule 00:00: MOUTH IN [place] 00 THE Medical MORNING Branch LORazepam Yes TAKE 1 Univer s 0.5 mg 9-30 TABLET BY ity of tablet 00:00: MOUTH [place] 00 TWICE A Medical DAY Branch NEEDED FOR ANXIETY FLUoxetine Yes TAKE ONE Uni vers 40 mg 9-30 CAPSULE BY ity of capsule 00:00: MOUTH IN [place] 00 THE Medical MORNING Branch LORazepam Yes TAKE 1 Univer s 0.5 mg 9-30 TABLET BY ity of tablet 00:00: MOUTH [place] 00 TWICE A Medical DAY Branch NEEDED FOR ANXIETY FLUoxetine Yes TAKE ONE Uni vers 40 mg 9-30 CAPSULE BY ity of capsule 00:00: MOUTH IN [place] 00 THE Medical MORNING Branch LORazepam Yes TAKE 1 Univer s 0.5 mg 9-30 TABLET BY ity of tablet 00:00: MOUTH [place] TWICE A Medical DAY Branch NEEDED FOR ANXIETY FLUoxetine Yes TAKE ONE Uni vers 40 mg 9-30 CAPSULE BY ity of capsule 00:00: MOUTH IN [place] 00 THE Medical MORNING Branch LORazepam Yes TAKE 1 Univer s 0.5 mg 9-30 TABLET BY ity of tablet 00:00: MOUTH [place] 00 TWICE A Medical DAY Branch NEEDED FOR ANXIETY FLUoxetine Yes TAKE ONE Uni vers 40 mg 9-30 CAPSULE BY ity of capsule 00:00: MOUTH IN [place] 00 THE Medical MORNING Branch LORazepam Yes TAKE 1 Univer s 0.5 mg 9-30 TABLET BY ity of tablet 00:00: MOUTH [place] 00 TWICE A Medical DAY Branch NEEDED FOR ANXIETY FLUoxetine Yes TAKE ONE Uni vers 40 mg 9-30 CAPSULE BY ity of capsule 00:00: MOUTH IN [place] 00 THE Medical MORNING Branch LORazepam Yes TAKE 1 Univer s 0.5 mg 9-30 TABLET BY ity of tablet 00:00: MOUTH [place] 00 TWICE A Medical DAY Branch NEEDED FOR ANXIETY FLUoxetine Yes TAKE ONE Uni vers 40 mg 9-30 CAPSULE BY ity of capsule 00:00: MOUTH IN [place] 00 THE Medical MORNING Branch LORazepam Yes TAKE 1 Univer s 0.5 mg 9-30 TABLET BY ity of tablet 00:00: MOUTH TWICE A Medical DAY Branch NEEDED FOR ANXIETY FLUoxetine Yes TAKE ONE Uni vers 40 mg 9-30 CAPSULE BY ity of capsule 00:00: MOUTH IN [place] THE Medical MORNING Branch LORazepam Yes TAKE 1 Univer s 0.5 mg 9-30 TABLET BY ity of tablet 00:00: MOUTH TWICE A Medical DAY Branch NEEDED FOR ANXIETY FLUoxetine Yes TAKE ONE Uni vers 40 mg 9-30 CAPSULE BY ity of capsule 00:00: MOUTH IN [place] THE Medical MORNING Branch LORazepam Yes TAKE 1 Univer s 0.5 mg 9-30 TABLET BY ity of tablet 00:00: MOUTH TWICE A Medical DAY Branch NEEDED FOR ANXIETY FLUoxetine Yes TAKE ONE Uni vers 40 mg 9-30 CAPSULE BY ity of capsule 00:00: MOUTH IN [place] THE Medical MORNING Branch LORazepam Yes TAKE 1 Univer s 0.5 mg 9-30 TABLET BY ity of tablet 00:00: MOUTH TWICE A Medical DAY Branch NEEDED FOR ANXIETY FLUoxetine Yes TAKE ONE Uni vers 40 mg 9-30 CAPSULE BY ity of capsule 00:00: MOUTH IN [place] THE Medical MORNING Branch FLUoxetine Yes TAKE ONE Uni vers 40 mg 9-30 CAPSULE BY ity of capsule 00:00: MOUTH IN [place] THE Medical MORNING Branch LORazepam Yes TAKE 1 Univer s 0.5 mg 9-30 TABLET BY ity of tablet 00:00: MOUTH TWICE A Medical DAY Branch NEEDED FOR ANXIETY LORazepam Yes TAKE 1 Univer s 0.5 mg 9-30 TABLET BY ity of tablet 00:00: MOUTH TWICE A Medical DAY Branch NEEDED FOR ANXIETY FLUoxetine Yes TAKE ONE Uni vers 40 mg 9-30 CAPSULE BY ity of capsule 00:00: MOUTH IN [place] THE Medical MORNING Branch LORazepam Yes TAKE 1 Univer s 0.5 mg 9-30 TABLET BY ity of tablet 00:00: MOUTH TWICE A Medical DAY Branch NEEDED FOR ANXIETY FLUoxetine Yes TAKE ONE Uni vers 40 mg 9-30 CAPSULE BY ity of capsule 00:00: MOUTH IN [place] THE Medical MORNING Branch LORazepam Yes TAKE 1 Univer s 0.5 mg 9-30 TABLET BY ity of tablet 00:00: MOUTH TWICE A Medical DAY Branch NEEDED FOR ANXIETY FLUoxetine Yes TAKE ONE Uni vers 40 mg 9-30 CAPSULE BY ity of capsule 00:00: MOUTH IN [place] THE Medical MORNING Branch LORazepam Yes TAKE 1 Univer s 0.5 mg 9-30 TABLET BY ity of tablet 00:00: MOUTH TWICE A Medical DAY Branch NEEDED FOR ANXIETY FLUoxetine Yes TAKE ONE Uni vers 40 mg 9-30 CAPSULE BY ity of capsule 00:00: MOUTH IN [place] THE Medical MORNING Branch LORazepam Yes TAKE 1 Univer s 0.5 mg 9-30 TABLET BY ity of tablet 00:00: MOUTH TWICE A Medical DAY Branch NEEDED FOR ANXIETY FLUoxetine Yes TAKE ONE Uni vers 40 mg 9-30 CAPSULE BY ity of capsule 00:00: MOUTH IN [place] THE Medical MORNING Branch LORazepam Yes TAKE 1 Univer s 0.5 mg 9-30 TABLET BY ity of tablet 00:00: MOUTH TWICE A Medical DAY Branch NEEDED FOR ANXIETY FLUoxetine Yes TAKE ONE Uni vers 40 mg 9-30 CAPSULE BY ity of capsule 00:00: MOUTH IN [place] THE Medical MORNING Branch LORazepam Yes TAKE 1 Univer s 0.5 mg 9-30 TABLET BY ity of tablet 00:00: MOUTH TWICE A Medical DAY Branch NEEDED FOR ANXIETY FLUoxetine Yes TAKE ONE Uni vers 40 mg 9-30 CAPSULE BY ity of capsule 00:00: MOUTH IN [place] THE Medical MORNING Branch LORazepam Yes TAKE 1 Univer s 0.5 mg 9-30 TABLET BY ity of tablet 00:00: MOUTH TWICE A Medical DAY Branch NEEDED FOR ANXIETY Vital Signs Vital Name Observation Time Observation Value Comments Source Systolic blood 2022-08-07 165 mm[Hg] [facility] pressure 00:23:00 [facility] Diastolic blood 2022-08-07 96 mm[Hg] [place] [facility] f pressure 00:23:00 [facility] Heart rate 2022-08-07 81 /min [facility] 00:23:00 [facility] Respiratory rate 2022-08-07 18 /min [facility] 00:23:00 [facility] Oxygen saturation 2022-08-07 97 /min University of in Arterial blood 00:23:00 [facility] by Pulse oximetry Branch Body temperature 2022-08-06 37.22 [facility] University of 20:02:00 [facility] Body height 2022-08-06 162.6 cm University of 20:02:00 [facility] Body weight 2022-08-06 54.432 kg University of 20:02:00 [facility] BMI 2022-08-06 20.60 kg/m2 University of 20:02:00 [facility] Systolic blood 2021-12-13 139 mm[Hg] University of pressure 04:08:43 [facility] Diastolic blood 2021-12-13 85 mm[Hg] University o f pressure 04:08:43 [facility] Heart rate 2021-12-13 96 /min University [facility] 04:08:43 [facility] Body temperature 2021-12-13 37.06 Alexandra [facility] 04:08:43 [facility] Respiratory rate 2021-12-13 22 /min [facility] 04:08:43 [facility] Oxygen saturation 2021-12-13 98 /min [facility] in Arterial blood 04:08:43 [facility] by Pulse oximetry Branch Body height 2021-12-13 162.6 cm University of 00:33:00 [facility] Body weight 2021-12-13 55.792 kg University [facility] 00:33:00 [facility] BMI 2021-12-13 21.11 kg/m2 University [facility] 00:33:00 [facility] Systolic blood 2020-08-07 154 mm[Hg] University of pressure 21:09:00 [facility] Diastolic blood 2020-08-07 116 mm[Hg] University o f pressure 21:09:00 [facility] Heart rate 2020-08-07 98 /min University of 21:09:00 [facility] Body temperature 2020-08-07 36.72 Alexandra University of 21:09:00 [facility] Respiratory rate 2020-08-07 18 /min [facility] 21:09:00 [facility] Body weight 2020-08-07 53.071 kg University of 21:09:00 [facility] BMI 2020-08-07 22.85 kg/m2 University of 21:09:00 [facility] Oxygen saturation 2020-08-07 97 /min [facility] in Arterial blood 21:09:00 [facility] by Pulse oximetry Branch Systolic blood 2020-08-01 169 mm[Hg] University of pressure 21:09:00 [facility] Diastolic blood 2020-08-01 95 mm[Hg] University o f pressure 21:09:00 [facility] Heart rate 2020-08-01 103 /min University of 21:02:00 [facility] Body height 2020-08-01 152.4 cm University of 21:02:00 [facility] Body weight 2020-08-01 53.978 kg University of 21:02:00 [facility] BMI 2020-08-01 23.24 kg/m2 University of 21:02:00 [facility] Systolic blood 2020-03-20 138 mm[Hg] University of pressure 20:59:00 [facility] Diastolic blood 2020-03-20 86 mm[Hg] University o f pressure 20:59:00 [facility] Heart rate 2020-03-20 93 /min University of 20:59:00 [facility] Body height 2020-03-20 152.4 cm University of 20:59:00 [facility] Body weight 2020-03-20 54.432 kg University of 20:59:00 [facility] BMI 2020-03-20 23.44 kg/m2 University of 20:59:00 [facility] Oxygen saturation 2020-03-20 100 /min University in Arterial blood 20:59:00 [facility] by Pulse oximetry Branch Systolic blood 2020-02-07 158 mm[Hg] [facility] University o f pressure 17:37:00 didnt take pain [place] [facility] meds this AM Diastolic blood 2020-02-07 98 mm[Hg] [facility] University of pressure 17:37:00 didnt take pain [place] [facility] or [facility] meds this AM Heart rate 2020-02-07 91 /min University of 17:35:00 [facility] Body height 2020-02-07 152.4 cm University of 17:35:00 [facility] Body weight 2020-02-07 54.432 kg University of 17:35:00 [facility] BMI 2020-02-07 23.44 kg/m2 University of 17:35:00 [facility] Oxygen saturation 2020-02-07 100 /min University of in Arterial blood 17:35:00 [facility] by Pulse oximetry Branch Systolic blood 2020-02-07 158 mm[Hg] pt states she University o f pressure 17:37:00 didnt take pain [place] [facility] meds this AM Diastolic blood 2020-02-07 98 mm[Hg] pt [facility] University of pressure 17:37:00 didnt take pain [place] [facility] or [facility] meds this AM Heart rate 2020-02-07 91 /min University 17:35:00 [facility] Body height 2020-02-07 152.4 cm University 17:35:00 [facility] Body weight 2020-02-07 54.432 kg University 17:35:00 [facility] BMI 2020-02-07 23.44 kg/m2 University 17:35:00 [facility] Oxygen saturation 2020-02-07 100 /min [facility] in Arterial blood 17:35:00 [facility] by Pulse oximetry [place] Systolic blood 2019-11-19 119 mm[Hg] University of pressure 20:53:00 [facility] Diastolic blood 2019-11-19 88 mm[Hg] University o f pressure 20:53:00 [facility] Heart rate 2019-11-19 96 /min University 20:52:00 [facility] Body height 2019-11-19 152.4 cm University of 20:52:00 [facility] Body weight 2019-11-19 58.514 kg University of 20:52:00 [facility] BMI 2019-11-19 25.19 kg/m2 University 20:52:00 [facility] Oxygen saturation 2019-11-19 100 /min [facility] in Arterial blood 20:52:00 [facility] by Pulse oximetry Branch Height 2018-05-14 161.29 cm [facility] Feliberto n 20:22:00 Weight 2018-05-14 [facility] Feliberto n 20:22:00 BMI Calculated 2018-05-14 [facility] Herm brett 20:22:00 Systolic (mm Hg) 2018-05-14 [facility] rmann 20:22:00 Diastolic (mm Hg) 2018-05-14 [facility] ermann 20:22:00 Temperature Oral 2018-05-14 99.0 F [facility] rmann (F) 20:22:00 Heart Rate 2018-05-14 [facility] Feliberto n 20:22:00 Procedures Procedure Date / Time Performing Clinician Source Performed COMP. METABOLIC PANEL 2022-08-06 21:58:00 Tamar Vnison [facility] ([id number]) Medical Branch CBC WITH DIFF 2022-08-06 21:58:00 Tamar Vinson [place] [facility] [place] [facility] ASSIGNMENT OF BENEFITS 2022-08-06 20:53:55 Doctor Unas[place], [facility] [place] [facility] CONSENT/REFUSAL FOR 2022-08-06 19:32:33 Doctor Norton [facility] DIAGNOSIS AND TREATMENT [place] [facility] [place] ABDOMEN PELVIS W 2021-12-13 02:35:00 Shaw Villegas [facility] CONTRAST Medical Branch LIPASE 2021-12-13 01:40:00 Shaw Villegas [facility] COMP. METABOLIC PANEL 2021-12-13 01:40:00 Shaw Villegas [facility] ([id number]) Medical Branch CBC WITH DIFF 2021-12-13 01:40:00 Shaw Villegas [facility] URINALYSIS 2021-12-13 01:40:00 Shaw Villegas [facility] ASSIGNMENT OF BENEFITS 2021-12-13 01:33:18 Doctor Unajacqueline, [facility] [place] [facility] CONSENT/REFUSAL FOR 2021-12-13 00:18:32 Doctor Norton [facility] DIAGNOSIS AND TREATMENT [place] [facility] AUTHORIZATION FOR RELEASE 2020-08-29 05:01:00 Doctor Norton, [facility] [place] [facility] [place] XR LUMBAR SPINE 3 VW 2020-08-07 21:54:26 Lynsey Montes [facility] Medical [place] NOTICE OF PRIVACY 2020-08-07 20:51:37 Doctor Errol, [facility] PRACTICES [place] [facility] CONSENT/REFUSAL FOR 2020-08-07 20:51:16 Doctor Norton [facility] DIAGNOSIS AND TREATMENT [place] [facility] [place] SCANNED LAB RESULTS 2019-11-03 05:01:00 Doctor Norton [facility] Name Medical [place] Cholecystectomy 2009-12-08 05:00:00 [facility] Her fishman Hysterectomy 2008-12-08 05:00:00 [facility] Her fishman Bunionectomy 2003-07-09 05:00:00 Ryder fishman Removal of ectopic 1997-12-08 05:00:00 Ryder Dunn from fallopian tube Appendectomy 1994-06-08 06:00:00 Ryder fishman Cervical spinal fusion Ryder Dunn Lumbar discectomy Ryder Brewer nn Encounters Start End Encounter Admission Attending Care Care Encounter Source Date/Time Date/Time Type Type Clinicians Facility Department ID 2021-01-[address] [facility] [id number] Univers 22:14:34 ity of [facility] 2022-08-06 2022-08-06 Emergency X Tamar VINSON [facility] ERT [id number] Univers 15:03:00 19:29:00 ity of [facility] 2022-08-06 2022-08-06 Emergency Tamar Vinson [facility] [id number] Univers 15:03:00 19:29:00 Mery MENDEZ [id number] i ty of [place] 4.2.7.2.686 [facility] [phone] [address] 2021-12-12 2021-12-12 Emergency X KATHYNV, [facility] ERT [id number] Univers 19:38:00 23:11:00 WAKILI ity [facility] 2021-12-12 2021-12-12 [facility] [id number] Univers 19:38:00 23:11:00 Shaw VELASCOGODWIN [id number] ity of [place] [id number] [facility] [phone] [facility] 084 Branch 2021-03-14 2021-03-14 Patient Doctor ROGER [id number] Univers 00:00:00 00:00:00 Secure Msg Unassigned, ERMIAS [id number] [place] [facility] [id number] Konrad [phone] [facility] 019 Branch 2021-03-08 2021-03-08 Letter ROGER [place] 1.2.840.114 [id number] Univers 00:00:00 00:00:00 (Out) Archana MONSON [id number] it y of HOSPITAL 4.2.7.2.686 Kon[place] as [phone] [facility] 019 Branch 2021-03-07 2021-03-07 Laboratory Only, Ang Db Test [facility] 1.2.8 40.114 [id number] Univers 13:20:00 13:35:00 Only Unknown, Attending HEALTH 350.1.13.10 ity of [place] 4.2.7.2.686 Konrad as YUKO?BLEA [phone] Ms dicvt KNEY [address] [place] [facility] 2021-03-07 2021-03-[address] [facility] [id number] Univers 13:20:00 13:31:37 STEFAN stapleton [facility] 2020-10-04 2020-10-04 Outpatient SHELLY Akbar, [facility] [id number] [facility] 12:00:00 12:00:00 [facility] 2020-08-29 2020-08-29 Orders Doctor ROGER 1.2.840.114 [id number] Univers 00:00:00 00:00:00 Only Unassigned, ERMIAS [id number] [place] [facility] [id number] Konrad as [phone] [facility] 009 Branch 2020-08-07 2020-08-07 Emergency [facility] 1.2.840.114 [id number] Univers 16:14:00 17:59:00 Lynsey Mendez [id number] [id number] [phone] [facility] 084 [place] 2020-08-01 2020-08-01 [facility] 1.2.840.114 [id number] Univers 15:57:39 16:36:24 Visit Javier Mendez 350.1.13.10 [place] [facility] [phone] Ms donovan correa 092 [facility] 2020-08-01 2020-08-[address] [facility] [id number] Univers 16:00:00 16:00:00 [facility]GAN[facility] 2020-05-08 2020-05-[address] [facility] [id number] Univers 13:45:00 13:45:00 ESTHER arias [facility] 2020-03-20 2020-03-[address] [facility] 1.2.840.114 [id number] Univers 14:52:10 15:12:10 Visit Javier Mendez 350.1.13.10 [place] [phone] [address] 2020-03-20 2020-03-20 Outpatient Andres RAEGAN JAVIER [facility] [id number] Univers 14:40:00 14:40:00 JAVIER CARLINarias [facility] 2020-02-07 2020-02-07 Office Raegan, [facility] 1.2.840.114 [id number] Univers 11:24:44 12:11:13 Visit Javier Mendez 350.1.13.10 [place] [phone] [address] 2020-02-07 2020-02-[address] [facility] 1.2.840.114 [id number] 11:24:44 12:11:13 Visit Javier Mendez 350.1.13.10 [place] 4.2.7.2.686 Professio [phone] [address] 2020-02-07 2020-02-[address] [facility] [id number] Univers 11:20:00 11:20:00 JAVIER CARLIN [facility] 2020-01-27 2020-01-[address] [facility] [id number] Univers 13:00:00 13:00:00 JAVIER CARLIN [facility] 2020-01-07 2020-01-[address] [facility] 1.2.840.114 [id number] Univers 00:00:00 00:00:00 Javier Mendez 350.1.13.10 [place] [phone] [address] 2019-12-13 2019-12-13 Telephone PA Carlin 1.2.840.114 [id number] Univers 00:00:00 00:00:00 Javier Chairez [facility] 350.1.13.10 ity of [place] [phone] [address] 2019-11-25 2019-11-[address] [facility] 1.2.840.114 [id number] Univers 00:00:00 00:00:00 Javier Mendez 350.1.13.10 [place] [phone] [address] 2019-11-19 2019-11-[address] [facility] 1.2.840.114 [id number] Univers 15:23:41 16:25:01 Visit Javier Mendez 350.1.13.10 [place] [phone] [address] 2019-11-19 2019-11-19 Outpatient R JAVIER CARLIN [facility] [id number] Univers 15:40:00 15:40:00 RAEGANJAVIER EL ity of [facility] 2019-11-03 2019-11-03 Orders Doctor ROGER 1.2.840.114 [id number] Univers 00:00:00 00:00:00 Only Unassigned, ERMIAS 350.1.13.10 [place] [facility] 4.2.7.2.686 Konrad as [phone] [facility] 009 [place] 2018-05-14 2018-05-15 Outpatient nullFlavo [facility] [id number] Memoria 17:40:00 05:59:59 r Clinic TM 01 l Shaun 2018-05-14 2018-05-15 Outpt Diag nullFlavo [facility] [id number] Memoria 16:22:00 05:59:00 Services r Outpatient 00 l Imaging Shaun Reaann 2018-05-14 2018-05-14 Outpatient [facility] [id number] 11:40:00 23:59:59 Christopher 2018-05-14 2018-05-[address] [facility] [id number] 10:22:00 23:59:00 Christopher 00 2018-05-14 2018-05-14 Outpatient KEILY ESTELITA [id number] [facility] 11:40:00 11:40:00 aurora Shaun 2018-05-04 2018-05-06 Phone nullFlavo [facility] [id number] Memoria 18:00:00 05:59:59 Message r Clinic [facility] 03 l [place] 2018-05-04 2018-05-05 [id number] 12:00:00 23:59:59 2015-11-21 2015-11-21 Outpatient KEILY ESTELITA [id number] [facility] 09:30:00 09:30:00 aurora Dunn Results Test Description Test Time Test Comments Results Result Comments Source COMP. METABOLIC PANEL (20961) 2021-12-13 02:09:51 Test Item Value Reference Range Interpretation Comme nts NA (test code = 4161253266) 129 mmol/L 135-145 L K (test code = 2525450671) 3.5 mmol/L 3.5-5 CL (test code = 6554692756) 94 mmol/L 98-108 L CO2 TOTAL (test code = 0285036470) 23 mmol/L 23-31 AGAP (test code = 9802211057) 2-16 BUN (test code = 4277895203) 7 mg/dL 7-23 GLUCOSE (test code = 4989634209) 89 mg/dL 70-110 CREATININE (test code = 0.70 mg/dL 0.5-1.04 9240459059) TOTAL BILI (test code = 0.3 mg/dL 0.1-1.9 4231903580) CALCIUM (test code = 4919712634) 9.2 mg/dL 8.6-10.6 T PROTEIN (test code = 5993883609) 6.6 g/dL 6.3-8.2 ALBUMIN (test code = 2732242078) 4.2 g/dL 3.5-5 ALK PHOS (test code = 5696102837) 89 U/L 34-122 ALTv (test code = 1742-6) 21 U/L 5-35 AST(SGOT) (test code = 3430719803) 25 U/L 13-40 eGFR (test code = 7786614787) mL/min/1.73m2 SANTI (test code = SANTI) Association of Glomerular Filtration Rate (GFR) and Staging of Kidney Disease* + +-------- + ------+| GFR (mL/min/1.73 m2) ?| With Kidney Damage ?| ?Without Kidney Damage+ +-- + +| ?>90 ?| ?Stage one ?| ? Normal ?+ +------- + -------+| ?60-89 ?| ?Stage two ?| ? Decreased GFR ? + +-------- + ------+| ?30-59 ?| ?Stage three ?| ? Stage three ? + +-------- + ------+| ?15-29 ?| ?Stage four ? | ? Stage four ?+ +------- + -------+| ?<15 (or dialysis) ? ?| ?Stage five ? | ? Stage five ?+ +------- + -------+ *Each stage assumes the associated GFR level has been in effect for at least three months. ?Stages 1 to 5, with or without kidney disease, indicate chronic kidney disease. Notes: Determination of stages one and two (with eGFR >59mL/min/1.73 m2) requires estimation of kidney damage for at least three months as defined by structural or functional abnormalities of the kidney, manifested by either:Pathological abnormalities or Markers of kidney damage (including abnormalities in the composition of the blood or urine or abnormalities in imaging tests). Lab Interpretation (test code = Abnormal 29007-4) [facility]16 Test Item Value Reference Range Interpretation Comments LIPASE (test code = 1358872213) 164 U/L 0-220 Lab Interpretation (test code = Normal 65434-6) [facility] WITH [id number] 01:49:07 Test Item Value Reference Range Interpretation Comments WBC (test code = See_Comment H [Automated 6690-2) message] The system which generated this result transmit micky reference range : 4.30 - 11.10 10*3/?L. The reference range was not used to interpret this result as normal/abnormal . RBC (test code = See_Comment [Automated 789-8) message] The system which generated this result transmit micky reference range : 3.93 - 5.25 10*6/?L. The reference range was not used to interpret this result as normal/abnormal . HGB (test code = 14.0 g/dL 11.6-15 718-7) HCT (test code = 39.5 % 35.7-45.2 4544-3) MCV (test code = 88.4 fL 80.6-95.5 787-2) MCH (test code = 31.3 pg 25.9-32.8 785-6) MCHC (test code = 35.4 g/dL 31.6-35.1 H 786-4) RDW-SD (test code = 40.9 fL 39-49.9 55915-2) RDW-CV (test code = 12.5 % 12-15.5 788-0) PLT (test code = See_Comment [Automated 777-3) message] The system which generated this result transmit micky reference range : 166 - 358 10*3/ ?L. The reference range was not u sed to interpret th is result as normal/abnormal . MPV (test code = 9.3 fL 9.5-12.9 L 43618-6) NRBC/100 WBC (test See_Comment [Automat ed code = 9373516041) message] The system which generated this result transmit micky reference range : 0.0 - 10.0 /100 WBCs. The reference range was not used to interpret this result as normal/abnormal . NRBC x10^3 (test code See_Comment [Auto mated = 2616617623) message] The system which generated this result transmit micky reference range : 10*3/?L. The reference range was not used to interpret this result as normal/abnormal . GRAN MAT (NEUT) % 76.7 % (test code = 770-8) IMM GRAN % (test code 0.30 % = 9606360335) LYMPH % (test code = 11.8 % 736-9) MONO % (test code = 9.5 % 5905-5) EOS % (test code = 1.3 % 713-8) BASO % (test code = 0.4 % 706-2) GRAN MAT x10^3(ANC) 11.08 10*3/uL 1.88-7.09 H (test code = 0114763803) IMM GRAN x10^3 (test 0.04 10*3/uL 0-0.06 code = 7120111530) LYMPH x10^3 (test code 1.71 10*3/uL 1.32-3.29 = 731-0) MONO x10^3 (test code 1.38 10*3/uL 0.33-0.92 H = 742-7) EOS x10^3 (test code = 0.19 10*3/uL 0.03-0.39 711-2) BASO x10^3 (test code 0.06 10*3/uL 0.01-0.07 = 704-7) Lab Interpretation Abnormal (test code = 77374-4) [facility] 3 [id number] 22:37:37No gross fracture or spondylolisthesis. 360 degrees surgical fusion hardware at L4- 5 and L5-S1 demonstrates noevidence for loosening or failure. This exam was interpreted by a neuroradiology Fellowshiptrained and boardcertified radiologist. [id number]: [id number] Electronically signed by Star Restrepo 08/07/2020 5:37 PMCLINICAL HISTORY: ?Back pain ORDERING PHYSICIAN: KAR MONTES TECHNIQUE: ?AP, lateral and coned-down lateral radiographs of the lumbarspine were performed. COMPARISON: ?None. FINDINGS: ?360 degree fusion hardware is present from L4 through S1. Thereis no evidence for hardware loosening or failure. The lumbar vertebralbodies demonstrate no compression fracture. There is no spondylolisthesis.No scoliotic deformity is apparent. [facility], Radiant Results Inft User - 08/07/2020 5:39PM CDT CLINICAL HISTORY: Back painORDERING PHYSICIAN: LYNSEY MONTESTECHNIQUE: AP, lateral and coned-down lateral radiographs of the lumbarspine were performed.COMPARISON: None.FINDINGS: 360 degree fusion hardware is present from L4 through S1. Thereis no evidence for hardware loosening or failure. The lumbar vertebralbodies demonstrate no compression fracture. There is no spondylolisthesis.No scoliotic deformity is apparent.IMPRESSIONNogross fracture or spondylolisthesis.360 degrees surgical fusion hardware at L4-5 and L5-S1 demonstrates noevidence for loosening or failure.This exam was interpreted by a neuroradiology Fellowship trained and boardcertified radiologist.RL [id number]: [id number] signed by Orion Ardon MD at 08/07/2020 5:37 PMUnEl [facility]"
[2022-12-28 05:35] LABS: Absolute Lymphocytes (CBC) 3.9 K/uL (0.7-4.9); Hematocrit 39.7 % (36.0-45.0); Lymphocytes % 32.1 % (15.3-44.8); MCV 93.3 fL (80-100); MPV 8.3 fL (7.6-11.3); Platelets 276 thou/uL (152-406); RBC Red Blood Cell Count 4.26 M/uL (3.86-4.86)
[2022-12-28 05:44] LABS: Specific Gravity < 1.005 (1.005-1.030); Urine Bacteria <20 /HPF (<20); Urine Bilirubin NEGATIVE (Negative); Urine Blood 1+ (Negative); Urine Clarity Turbid (Clear); Urine Color Colorless (Yellow); Urine Glucose NEGATIVE (Negative); Urine Protein NEGATIVE (Negative); Urine RBC <5 /HPF (None Seen); Urine Urobilinogen Normal (Normal); Urine pH 6.5 (5.0-7.0)
[2022-12-28 06:02] LABS: Potassium 3.5 mEq/L (3.5-5.1); Thyroid Stimulating Hormone 1.59 uIU/mL (0.358-3.740); Troponin High Sensitivity 15.2 pg/mL (<58.9)
--- NOTE | 2022-12-28 06:25 | ER ---
Nurse's Notes [facility] Name: Sydney Oliveira Age: 57 yrs Sex: Female : 1965 Arrival Date: 12/28/2022 Time: 05:10 Bed 6 Private MD: Diagnosis: Anxiety disorder, unspecified Presentation: 12/28 05:23 Chief complaint: Patient states: A few hours ago I started feeling nauseous, like my jb4 heart was beating fast, and like my b/p was high. I tried to wait it out but it kept getting worse. Coronavirus screen: At this time, the client does not indicate any symptoms associated with coronavirus-19. Ebola Screen: No symptoms or risks identified at this time. Initial Sepsis Screen: Does the patient meet any 2 criteria? No. Patient's initial sepsis screen is negative. Does the patient have a suspected source of infection? No. Patient's initial sepsis screen is negative. Risk Assessment: Do you want to hurt yourself or someone else? Patient reports no desire to harm self or others. Onset of symptoms was December 28, 2022. Transition of care: patient was not received from another setting of care. 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 N/A - , Not nw1 Historical: - Allergies: 05:26 Codeine; jb4 05:26 Morphine; jb4 05:26 PENICILLINS; jb4 - Home Meds: 05:26 losartan 50 mg Oral tab 1 tab once daily [Active]; Metoprolol Tartrate Oral [Active]; jb4 06:04 Lorazepam Oral [Active]; Dilaudid 2 mg Oral tab [Active]; escitalopram oxalate 10 mg nw1 Oral tab 1 tab once daily [Active]; gabapentin Oral [Active]; Hydromorphone Oral [Active]; losartan Oral [Active]; - PMHx: 05:26 Anxiety; chronic back pain; Hyperlipidemia; Depression; Hypertension; Migraines; jb4 neuropathy; 06:04 Anxiety; Chronic pain; Hypertensive disorder; nw1 - PSHx: 05:26 Appendectomy; Cholecystectomy; hysterctomy; multiple back surgeries; jb4 - Immunization history:: Adult Immunizations up to date. - Social history:: Smoking status: Patient reports the use of cigarette tobacco products, smokes one pack cigarettes per day. - Code Status:: Full code. Screenin:57 [facility] ED Fall Risk Assessment (Adult) History of falling in the last 3 months, nw1 including since admission No falls in past 3 months (0 pts) Confusion or Disorientation No (0 pts) Intoxicated or Sedated No (0 pts) Impaired Gait No (0 pts) Mobility Assist Device Used No (0 pt) Altered Elimination No (0 pt) Score/Fall Risk Level 0 - 2 = Low Risk Oriented to surroundings, Maintained a safe environment, Educated pt \T\ family on fall prevention, incl call for assistance when getting out of bed, Assessed \T\ reinforced patient's understanding of fall precautions, Provided non-skid footwear, Hourly rounding (assess needs \T\ fall precautionary measures) done, Used gait belt as appropriate. Abuse screen: Denies threats or abuse. Denies injuries from another. Nutritional screening: No deficits noted. Tuberculosis screening: No symptoms or risk factors identified. Assessment: 05:53 General: Appears uncomfortable, Behavior is calm, cooperative, appropriate for age. nw1 Pain:. Pain: Pain does not radiate. Pain began 4 hours ago. Cardiovascular: Reports palpitations. Respiratory: No deficits noted. GI: No deficits noted. : No signs and/or symptoms were reported regarding the genitourinary system. Musculoskeletal: No signs and/or symptoms reported regarding the musculoskeletal system. Vital Signs: 05:38 BP 163 / 102; Pulse 60; Resp 11; Temp 97.7(TE); Pulse Ox 100% on R/A; Weight 54.43 kg jb4 (R); Height 5 ft. 4 in. ; 05:45 BP 149 / 72; Pulse 55; Resp 13; Pulse Ox 99% ; nw1 05:38 Body Mass Index 20.60 (54.43 kg, 162.56 cm) jb4 ED Course: 05:11 Patient arrived in ED. jj6 05:19 Kaden Asecncio MD is Attending Physician. ec2 05:23 Bossman Mireles, JONNY is Primary Nurse. jb4 05:25 Triage completed. jb4 05:26 Arm band placed on right wrist. jb4 05:58 Patient has correct armband on for positive identification. Placed in gown. Bed in low nw1 position. Call light in reach. Side rails up X2. Provided Education on: POC teaching. Client placed on continuous cardiac and pulse oximetry monitoring. NIBP monitoring applied. monitoring and evaluation advisor on. Pulse ox on. NIBP on. Lights dimmed. Warm blanket given. Verbal reassurance given. Head of bed elevated. Door closed. Noise minimized. 06:01 No provider procedures requiring assistance completed. Initial lab(s) drawn, by me, nw1 sent to lab. Urine collected: clean catch specimen, clear, EKG done, by clinical technologist. Inserted saline lock: 20 gauge in right antecubital area, using aseptic technique. Blood collected. Flushed right peripheral line with 5 ml normal saline. Patient maintains SpO2 saturation greater than 95% on room air. 06:15 XRAY Chest (1 view) In Process Unspecified. EDMS 06:33 IV discontinued, intact, bleeding controlled, No redness/swelling at site. Pressure nw1 dressing applied. Administered Medications: No medications were administered Medication: 05:57 VIS not applicable for this client. nw1 Outcome: 06:02 Condition: stable nw1 06:24 Discharge ordered by . [email or web address] 06:33 Discharged to home ambulatory, nw1 06:33 Discharge instructions given to patient, Instructed on discharge instructions, follow up and referral plans. medication usage, Demonstrated understanding of instructions, follow-up care, 06:34 Patient left the ED. nw1 Signatures: Dispatcher [employer] Bossman Saunders, RN RN jb4 Shabnam [email or web address] Kaden Ascencio MD MD ec2 Amber Stephenson RN RN nw1
--- NOTE | 2022-12-28 06:25 | EDPHYS ---
Physician Documentation [facility] Name: Sydney Oliveira Age: 57 yrs Sex: Female : 1965 Arrival Date: 12/28/2022 Time: 05:10 Bed 6 Private MD: ED Physician Kaden Ascencio HPI: 12/28 05:28 This 57 yrs old Female presents to ER via Ambulatory with complaints of ec2 Irregular Pulse, High Blood Pressure, Nausea. 05:28 Patient arrives today due to concern for palpitation with associated nausea. Patient ec2 reports that she has been experiencing palpitations over the course of the night. States that she has a history of anxiety as well as a history of PVCs. Patient also reports a history of electrolyte disturbances with previous issues with hypokalemia. Patient states that she feels little bit nauseous like she needs to throw up. Patient reports no abdominal pain, no urinary symptoms, no chest pain. Patient denies any shortness of breath. Patient reports that she has been under a lot of stress and thinks that this is contributing to her presentation today. She also reports that she has noted her blood pressure fluctuating and was concerned about this.. MEDICAL REVIEW COORDINATOR: 06:04 LMP N/A - , Not nw1 Historical: - Allergies: 05:26 Codeine; jb4 05:26 Morphine; jb4 05:26 PENICILLINS; jb4 - Home Meds: 05:26 losartan 50 mg Oral tab 1 tab once daily [Active]; Metoprolol Tartrate Oral [Active]; jb4 06:04 Lorazepam Oral [Active]; Dilaudid 2 mg Oral tab [Active]; escitalopram oxalate 10 mg nw1 Oral tab 1 tab once daily [Active]; gabapentin Oral [Active]; Hydromorphone Oral [Active]; losartan Oral [Active]; - PMHx: 05:26 Anxiety; chronic back pain; Hyperlipidemia; Depression; Hypertension; Migraines; jb4 neuropathy; 06:04 Anxiety; Chronic pain; Hypertensive disorder; nw1 - PSHx: 05:26 Appendectomy; Cholecystectomy; hysterctomy; multiple back surgeries; jb4 - Immunization history:: Adult Immunizations up to date. - Social history:: Smoking status: Patient reports the use of cigarette tobacco products, smokes one pack cigarettes per day. - Code Status:: Full code. ROS: 05:28 Constitutional: palpitations, nausea ec2 Exam: 05:28 Constitutional: GEN: NAD Head: atraumatic Eyes: EOMI Ears: External ears are ec2 normal. CV: regular rate LUNGS: no respiratory distress, no wheezes, no rales, no rhonchi ABD: non-distended SKIN: no evidence of rashes MSK: no evidence of trauma NEURO: moves all extremities equally Psych: Anxious individual was otherwise cooperative and in no acute distress Vital Signs: 05:38 BP 163 / 102; Pulse 60; Resp 11; Temp 97.7(TE); Pulse Ox 100% on R/A; Weight 54.43 kg jb4 (R); Height 5 ft. 4 in. ; 05:45 BP 149 / 72; Pulse 55; Resp 13; Pulse Ox 99% ; nw1 05:38 Body Mass Index 20.60 (54.43 kg, 162.56 cm) jb4 MDM: 05:19 Patient medically screened. ec2 05:28 ED course: Patient arrives today due to concern for palpitations with associated nausea ec2 and concern for elevated blood pressure. Examination remarkable for anxious dividual was otherwise well-appearing in no acute distress. Will obtain lab work, EKG, chest x-ray for further assessment of the patient's complaint. Currently considering process such as arrhythmia, electrolyte disturbances, less patient for ACS or PE. Additionally considering anxiety. . 05:30 ED course: EKG independently reviewed and interpreted by me, shows normal sinus rhythm, ec2 rate of 57, no acute ST segment elevations, PVC noted.. 06:08 ED course: Metabolic profile with appropriate electrolytes, troponin within normal ec2 ranges, TSH and T4 within normal ranges, CBC is overall reassuring, slight leukocytosis appreciated. . 06:20 ED course: Chest x-ray independently reviewed and interpreted by me, shows no acute ec2 intrathoracic process.. 06:23 ED course: On reassessment patient is well-appearing in no acute distress, will ec2 discharge home, return precautions given. Presentation consistent likely with anxiety.. 06:25 Data reviewed: vital signs. ec2 12/28 05:20 Order name: Basic Metabolic Panel; Complete Time: 06:08 ec2 12/28 05:20 Order name: CBC with Diff; Complete Time: 05:58 ec2 12/28 05:20 Order name: Troponin HS; Complete Time: 06:08 ec2 12/28 05:20 Order name: Thyroid Stimulat Hormone; Complete Time: 06:08 ec2 12/28 05:20 Order name: T4 Free; Complete Time: 06:08 ec2 12/28 05:20 Order name: Urinalysis w/ reflexes; Complete Time: 05:58 ec2 12/28 05:20 Order name: XRAY Chest (1 view) ec2 12/28 05:20 Order name: EKG; Complete Time: 05:21 ec2 12/28 05:20 Order name: Cardiac monitoring; Complete Time: 05:32 ec2 12/28 05:20 Order name: EKG - Nurse/Tech; Complete Time: 05:31 ec2 12/28 05:20 Order name: IV Saline Lock; Complete Time: 05:32 ec2 12/28 05:20 Order name: Labs collected and sent; Complete Time: 05:32 ec2 12/28 05:20 Order name: O2 Per Protocol; Complete Time: 05:32 ec2 12/28 05:20 Order name: O2 Sat Monitoring; Complete Time: 05:32 ec2 Administered Medications: No medications were administered Disposition Summary: 12/28/22 06:24 Discharge Ordered Notes: Location: Home ec2 Condition: Stable ec2 Diagnosis - Anxiety disorder, unspecified ec2 Discharge Instructions: - Discharge Summary Sheet ec2 - Panic Attack ec2 Forms: - Medication Reconciliation Form ec2 - Thank You Letter ec2 - Antibiotic Education ec2 - Prescription Opioid Use ec2 - Patient Portal Instructions ec2 - Leadership Thank You Letter ec2 Signatures: Dispatcher [employer] Bossman Saunders RN RN jb4 Kaden Ascencio MD MD ec2 Amber Stephenson RN RN nw1 Corrections: (The following items were deleted from the chart) 05:29 05:28 Patient arrives today due to concern for palpitation with associated nausea. ec2 Patient reports that she has been experiencing palpitations over the course of the night. States that she has a history of anxiety as well as a history of PVCs. Patient also reports a history of electrolyte disturbances with previous issues with hypokalemia. Patient states that she feels little bit nauseous like she needs to throw up. Patient reports no abdominal pain, no urinary symptoms, no chest pain. Patient denies any shortness of breath. Patient reports that she has been under a lot of stress and thinks that this is contributing to her presentation today.. ec2 06:17 06:16 ED course: Patient with significant urine output after the Lasix administration. ec2 On reassessment patient reports some subjective improvement in her symptoms, patient remained saturating in the upper 90s, 100% and is in no respiratory distress. Chest x-ray was independently reviewed and interpreted by me, shows cardiomegaly, trace left-sided pleural effusion as well as vascular congestion appreciated. Ultimately presentations consistent with volume overload, I will discharge patient home I checked her on the importance of taking her Lasix home medication. Return precautions given.. ec2
[2022-12-28 07:00] VITALS: TEMP 97.7
[2022-12-28 07:01] VITALS: BP 149/72; O2SAT 99
--- NOTE | 2022-12-28 15:02 | RAD REPORT ---
EXAM DESCRIPTION: RAD - Chest Single View - 12/28/2022 6:13 am CLINICAL HISTORY: The patient is 57 years old and is Female; PALPITATIONS TECHNIQUE: Frontal view of the chest. COMPARISON: No relevant prior studies available. FINDINGS: Lungs: Unremarkable. No consolidation. Pleural space: Unremarkable. No pneumothorax. Heart: Unremarkable. Mediastinum: Unremarkable. Bones/joints: Postsurgical changes in the cervical spine. IMPRESSION: No acute findings in the chest. Electronically signed by: Manny Chamorro MD 12/28/2022 6:58 AM CDT Due to temporary technical issues with the PACS/Fluency reporting system, reports are being signed by the in house radiologists without review as a courtesy to insure prompt reporting. The interpreting radiologist is fully responsible for the content of the report.
--- NOTE | 2022-12-29 13:51 | EKG ---
Test Date: 2022-12-28 Test Time: 05:27:14 Circuit Recorder: DELL MEASUREMENT RESULTS: Intervals: Rate: 57 GA: 172 QRSD: 86 QT: 440 QTc: 428 [place]: P: 76 GA: 172 QRS: 76 T: 69 INTERPRETIVE STATEMENTS: Sinus bradycardia with occasional premature ventricular complexes Anterior infarct, age undetermined Abnormal ECG Compared to ECG 08/21/2020 07:26:20 Ventricular premature complex(es) now present Myocardial infarct finding now present Sinus rhythm no longer present Left ventricular hypertrophy no longer present ST (T wave) deviation no longer present Electronically Signed On 12-29-22 13:50:16 CDT by Sebastian Sandoval
== END 2022-12-28 06:34 | disposition home or self-care (01) ==
LOC: ER 05:10
DX: F41.9 Anxiety disorder, unspecified (principal); I10 Essential (primary) hypertension; F32.A Depression, unspecified; F17.210 Nicotine dependence, cigarettes, uncomplicated; Z88.0 Allergy status to penicillin; Z88.5 Allergy status to narcotic agent
CPT/HCPCS: 36415; 71045; 80048; 81001; 84439; 84443; 84484; 85025; 93005; 99285

== ENCOUNTER → 2023-04-25 | Emergency (ER) | payer OTHER ==
[~2023-04-25] MED LIST: DIPHENHYDRAMINE 50 MG/ML VIAL ONE; KETOROLAC 30 MG/ML INJ ONE; METOCLOPRAMIDE 10 MG/2mL INJ ONE; NA CHLORIDE 0.9% 1,000 ML ONE; dexAMETHasone 4 MG/ML VIAL ONE
[2023-04-26 00:14] LABS: Absolute Lymphocytes (CBC) 2.3 K/uL (0.7-4.9); Hematocrit 41.5 % (36.0-45.0); Lymphocytes % 27.2 % (15.3-44.8); MPV 8.5 fL (7.6-11.3); Platelets 287 thou/uL (152-406); RBC Red Blood Cell Count 4.46 M/uL (3.86-4.86)
[2023-04-26 00:37] LABS: Albumin 3.3 g/dL (3.4-5.0); Bilirubin Total 0.6 mg/dL (0.2-1.0); Potassium 4.1 mEq/L (3.5-5.1); Protein, Total 6.8 g/dL (6.4-8.2)
--- NOTE | 2023-04-26 01:11 | ER ---
Nurse's Notes [facility] Name: Sydney Oliveira Age: 58 yrs Sex: Female : 1965 Arrival Date: 04/25/2023 Time: 23:34 Bed 18 Private MD: Diagnosis: Headache Presentation: 04/25 23:43 Chief complaint: Patient states: head and neck pain of 10,onset 1000 AM today with pf1 vomiting,onset 1630. 23:43 Coronavirus screen: Client denies travel out of the [place] in the last 14 days. Client pf1 presents with at least one sign or symptom that may indicate coronavirus-19. Ebola Screen: Patient negative for fever greater than or equal to 101.5 degrees Fahrenheit, and additional compatible Ebola Virus Disease symptoms. Initial Sepsis Screen: Does the patient meet any 2 criteria? No. Patient's initial sepsis screen is negative. Does the patient have a suspected source of infection? No. Patient's initial sepsis screen is negative. Risk Assessment: Do you want to hurt yourself or someone else? Patient reports no desire to harm self or others. 23:43 Method Of Arrival: Ambulatory pf1 23:43 Acuity: VILLA 3 pf1 23:58 Onset of symptoms was April 25, 2023. rv Historical: - Allergies: 23:56 Codeine; pf1 23:56 Morphine; pf1 23:56 PENICILLINS; pf1 - PMHx: 23:56 chronic back pain; Chronic pain; Depression; Hyperlipidemia; Hypertension; Migraines; pf1 neuropathy; Anxiety; - PSHx: 23:56 Appendectomy; Cholecystectomy; hysterctomy; multiple back surgeries; section; pf1 23:57 neck; pf1 - Immunization history:: Adult Immunizations up to date, 5 doses of Moderna Last tetanus immunization: > 10 years ago Flu vaccine is up to date. - Social history:: Smoking status: Patient reports the use of cigarette tobacco products, smokes one pack cigarettes per day. Patient/guardian denies using alcohol, street drugs. Screenin:57 [facility] ED Fall Risk Assessment (Adult) History of falling in the last 3 months, rv including since admission No falls in past 3 months (0 pts) Score/Fall Risk Level 0 - 2 = Low Risk Oriented to surroundings, Maintained a safe environment, Educated pt \T\ family on fall prevention, incl call for assistance when getting out of bed, Assessed \T\ reinforced patient's understanding of fall precautions. Abuse screen: Denies threats or abuse. Denies injuries from another. Nutritional screening: No deficits noted. Tuberculosis screening: No symptoms or risk factors identified. Assessment: 23:56 General: Appears uncomfortable, Behavior is calm, cooperative. Pain: Complains of pain rv in abdomen, neck, and back. Neuro: Level of Consciousness is awake, alert, obeys commands, Oriented to person, place, time, situation. Cardiovascular: Capillary refill < 3 seconds Patient's skin is warm and dry. Respiratory: Airway is patent Respiratory effort is even, unlabored. GI: Abdomen is flat, non-distended, Reports nausea, vomiting. Vital Signs: 23:43 BP 163 / 94; Pulse 63; Resp 16; Temp 97.4; Pulse Ox 100% on R/A; Weight 56.7 kg; Height pf1 5 ft. 4 in. ; Pain 10/10; 23:43 Body Mass Index 21.46 (56.70 kg, 162.56 cm) pf1 23:43 Pain Scale: Adult pf1 ED Course: 23:40 Patient arrived in ED. gm2 23:43 Kaden Ascencio MD is Attending Physician. ec2 23:45 Timbo Eli RN is Primary Nurse. rv 23:56 Triage completed. pf1 23:57 Patient has correct armband on for positive identification. Client placed on continuous rv cardiac and pulse oximetry monitoring. NIBP monitoring applied. 23:58 Arm band placed on right wrist. rv 23:58 No provider procedures requiring assistance completed. rv 23:58 Inserted saline lock: 20 gauge in right antecubital area, using aseptic technique. rv Blood collected. 17 01:19 IV discontinued, intact, bleeding controlled, No redness/swelling at site. Pressure rv dressing applied. Administered Medications: 00:19 Drug: NS 0.9% IV 1000 ml IV at 1 bolus Per protocol; 1000 mL bolus Route: IV; Rate: 1 rv bolus; Site: right antecubital; 01:18 Follow up: IV Status: Completed infusion; IV Intake: 1000ml rv 00:19 Drug: TORadol - Ketorolac IVP 15 mg IVP once Route: IVP; Site: right antecubital; rv 01:18 Follow up: Response: No adverse reaction; Marked relief of symptoms rv 00:19 Drug: metoCLOPramide IVP 10 mg IVP once; over 1 to 2 minutes Route: IVP; Site: right rv antecubital; 01:18 Follow up: Response: No adverse reaction; Marked relief of symptoms rv 00:19 Drug: diphenhydrAMINE IVP 50 mg IVP once Route: IVP; Site: right antecubital; rv 01:18 Follow up: Response: No adverse reaction; Marked relief of symptoms rv 00:19 Drug: Decadron - Dexamethasone IVP 10 mg IVP once Route: IVP; Site: right antecubital; rv 01:18 Follow up: Response: No adverse reaction; Marked relief of symptoms rv 01:18 Drug: Ondansetron IVP 4 mg IVP once; over 2 minutes Route: IVP; Site: right antecubital;rv 01:18 Follow up: Response: Medication administered at discharge. rv Medication: 04/25 23:57 VIS not applicable for this client. rv Intake: 04/26 01:18 IV: 1000ml; Total: 1000ml. rv Outcome: 01:10 Discharge ordered by ec2 01:19 Discharged to home ambulatory, rv 01:19 Condition: good 01:19 Discharge instructions given to patient, Instructed on discharge instructions, follow up and referral plans. Demonstrated understanding of instructions, follow-up care, 01:19 Patient left the ED. rv Signatures: Timbo Eli RN RN rv Telma Conklin RN RN pf1 Kaden Ascencio MD MD ec2 Gin [place] 2 Corrections: (The following items were deleted from the chart) 04/25 23:58 23:56 PSHx: Total abdominal hysterectomy; pf1 pf1
--- NOTE | 2023-04-26 01:11 | EDPHYS ---
Physician Documentation [facility] Name: Sydney Oliveira Age: 58 yrs Sex: Female : 1965 Arrival Date: 04/25/2023 Time: 23:34 Bed 18 Private MD: ED Physician Kaden Ascencio HPI: 04/25 23:58 This 58 yrs old Female presents to ER via Ambulatory with complaints of ec2 Nausea/Vomiting, High Blood Pressure, Neck and Upper Back Pain. 23:58 Patient with history of C-spine fusion arrives today for head and neck pain. No recent ec2 falls or injuries or trauma. States that she is been having headache and this has been causing her to be nauseous and have episodes of vomiting. States that she takes hydromorphone for pain. Patient reports no recent illnesses, no fevers or chills, cough or cold symptoms.. Historical: - Allergies: 23:56 Codeine; pf1 23:56 Morphine; pf1 23:56 PENICILLINS; pf1 - PMHx: 23:56 chronic back pain; Chronic pain; Depression; Hyperlipidemia; Hypertension; Migraines; pf1 neuropathy; Anxiety; - PSHx: 23:56 Appendectomy; Cholecystectomy; hysterctomy; multiple back surgeries; section; pf1 23:57 neck; pf1 - Immunization history:: Adult Immunizations up to date, 5 doses of Moderna Last tetanus immunization: > 10 years ago Flu vaccine is up to date. - Social history:: Smoking status: Patient reports the use of cigarette tobacco products, smokes one pack cigarettes per day. Patient/guardian denies using alcohol, street drugs. ROS: 23:58 Constitutional: as per hpi ec2 Exam: 23:58 Constitutional: GEN: NAD Head: atraumatic Eyes: EOMI Ears: External ears are ec2 normal. CV: regular rate LUNGS: no respiratory distress ABD: non-distended SKIN: no evidence of rashes MSK: no evidence of trauma NEURO: moves all extremities equally, cranial nerves II through XII intact, strength intact all 4 extremities. Vital Signs: 23:43 BP 163 / 94; Pulse 63; Resp 16; Temp 97.4; Pulse Ox 100% on R/A; Weight 56.7 kg; Height pf1 5 ft. 4 in. ; Pain 10/10; 23:43 Body Mass Index 21.46 (56.70 kg, 162.56 cm) pf1 23:43 Pain Scale: Adult pf1 MDM: 23:51 Patient medically screened. ec2 23:58 Data reviewed: vital signs. ED course: Patient arrives today for headache and neck ec2 pain. Examination remarkable for well-appearing nontoxic individual is otherwise in no acute distress with a reassuring neurologic examination and reassuring vitals. EKG obtained, independently reviewed and interpreted by me, shows normal sinus rhythm, rate 63, no acute ST segment elevations, nonconcerning intervals. Will obtain lab work, treat the patient symptoms and reassess the patient. Currently considering process such as patient's chronic headaches, low suspicion for intracranial brain bleed or mass, low suspicion for C-spine fracture given lack of trauma.. 04/26 00:33 ED course: CBC reassuring.. ec2 00:53 ED course: Metabolic profile shows slight hyponatremia with a serum of 129, appropriate ec2 renal function. Lipase within normal ranges. . 01:09 ED course: On reassessment patient with marked improvement in symptoms. Will discharge ec2 home. Return precautions given. Suspect headache causing the patient's symptoms.. 02 23:57 Order name: CBC with Diff; Complete Time: 00:33 ec2 16 23:57 Order name: CMP; Complete Time: 00:53 ec2 04/25 23:57 Order name: Lipase; Complete Time: 00:53 ec2 16 23:57 Order name: IV Saline Lock; Complete Time: 00:06 ec2 04/25 23:57 Order name: Labs collected and sent; Complete Time: 00:06 ec2 Administered Medications: 00:19 Drug: NS 0.9% IV 1000 ml IV at 1 bolus Per protocol; 1000 mL bolus Route: IV; Rate: 1 rv bolus; Site: right antecubital; 01:18 Follow up: IV Status: Completed infusion; IV Intake: 1000ml rv 00:19 Drug: TORadol - Ketorolac IVP 15 mg IVP once Route: IVP; Site: right antecubital; rv 01:18 Follow up: Response: No adverse reaction; Marked relief of symptoms rv 00:19 Drug: metoCLOPramide IVP 10 mg IVP once; over 1 to 2 minutes Route: IVP; Site: right rv antecubital; 01:18 Follow up: Response: No adverse reaction; Marked relief of symptoms rv 00:19 Drug: diphenhydrAMINE IVP 50 mg IVP once Route: IVP; Site: right antecubital; rv 01:18 Follow up: Response: No adverse reaction; Marked relief of symptoms rv 00:19 Drug: Decadron - Dexamethasone IVP 10 mg IVP once Route: IVP; Site: right antecubital; rv 01:18 Follow up: Response: No adverse reaction; Marked relief of symptoms rv 01:18 Drug: Ondansetron IVP 4 mg IVP once; over 2 minutes Route: IVP; Site: right antecubital;rv 01:18 Follow up: Response: Medication administered at discharge. rv Disposition Summary: 04/26/23 01:10 Discharge Ordered Notes: Location: Home ec2 Condition: Stable ec2 Diagnosis - Headache ec2 Followup: ec2 - With: Private Physician - When: - Reason: Recheck today's complaints Discharge Instructions: - Discharge Summary Sheet ec2 - General Headache Without Cause ec2 Forms: - Medication Reconciliation Form ec2 - Thank You Letter ec2 - Antibiotic Education ec2 - Prescription Opioid Use ec2 - Patient Portal Instructions ec2 - Leadership Thank You Letter ec2 Signatures: Dispatcher [employer] Timbo Buchanan RN RN Telma Caro RN RN pf1 Kaden Ascencio MD MD ec2 Corrections: (The following items were deleted from the chart) 04/25 23:58 23:56 PSHx: Total abdominal hysterectomy; pf1 pf1
[2023-04-26 01:44] VITALS: BP 163/94; TEMP 97.4; O2SAT 100
--- NOTE | 2023-04-28 11:01 | EKG ---
Test Date: 2023-04-25 Test Time: 23:51:39 Acid Cutter: RV MEASUREMENT RESULTS: Intervals: Rate: 63 VA: 150 QRSD: 78 QT: 412 QTc: 421 [place]: P: 74 VA: 150 QRS: 80 T: 72 INTERPRETIVE STATEMENTS: Normal sinus rhythm ST abnormality, possible digitalis effect Abnormal ECG Compared to ECG 12/28/2022 05:27:14 ST (T wave) deviation now present Sinus bradycardia no longer present Ventricular premature complex(es) no longer present Myocardial infarct finding no longer present Electronically Signed On 04-28-23 10:57:43 [employer] SUPERVIS[employer] by Tahir Li
== END ==
LOC: ER 23:34
DX: R51.9 Headache, unspecified (principal); M54.2 Cervicalgia; F17.210 Nicotine dependence, cigarettes, uncomplicated; Z88.0 Allergy status to penicillin; Z88.5 Allergy status to narcotic agent
CPT/HCPCS: 36415; 80053; 83690; 85025; 93005; 96361; 96374; 96375; 99284

== ENCOUNTER → 2023-05-15 | Emergency (ER) | payer OTHER ==
[~2023-05-15] MED LIST changes: -DIPHENHYDRAMINE 50 MG/ML VIAL ONE; +METHOCARBAMOL 1,000 MG/10 ML VIAL ONE; -NA CHLORIDE 0.9% 1,000 ML ONE; +NA CHLORIDE 0.9% 100 ML ONE; +NA CHLORIDE 0.9% 200 ML ONE; +dexAMETHasone 10 MG/ML VIAL ONE; -dexAMETHasone 4 MG/ML VIAL ONE
--- NOTE | 2023-05-15 17:56 | RAD REPORT ---
EXAM DESCRIPTION: CT - [id number] - 05/15/2023 4:47 pm CLINICAL HISTORY: PAIN. History of cervical spine surgery COMPARISON: C Spine Wo Con dated 08/21/2020; Head C Spine Mpr Wo Con dated 01/11/2018; Myelogram C Spi ne dated 07/10/2015; SOFT TISSUE NECK W CONTRAST dated 05/22/2015; Chest Single View dated 12/28/2022 TECHNIQUE: Axial thin cut noncontrast CT images of the head were obtained. Axial thin cut noncontrast CT images of the cervical spine were obtained. Multiplanar reformatted images were generated and reviewed. All CT scans are performed using dose optimization technique as appropriate and may include automated exposure control or mA/KV adjustment according to patient size. FINDINGS: CT HEAD WITHOUT CONTRAST: No acute hemorrhage, hydrocephalus or extra-axial collection is identified.No areas of brain edema or midline shift. The paranasal sinuses and mastoids are clear.The calvarium is intact. CT CERVICAL SPINE WITHOUT CONTRAST: Sequelae of anterior plating spanning C3-C6 with interbody spacer at C3-4 stable. No acute fracture o r subluxation.No prevertebral soft tissues swelling is identified. Subtle ground-glass opacities in the lung apices, nonspecific. IMPRESSION: No acute traumatic intracranial or cervical spine findings. Subtle ground-glass opacities in the lung apices, nonspecific and may relate to mild interstitial carolin ma or early pneumonitis.
--- NOTE | 2023-05-15 18:46 | ER ---
Nurse's Notes [facility] Name: Sydney Oliveira Age: 58 yrs Sex: Female : 1965 Arrival Date: 05/15/2023 Time: 15:52 Bed 10 Private MD: Diagnosis: Cervicalgia-chronic Presentation: 05/14 16:18 Chief complaint: Patient states: I have had a lot of surgery in my neck and i have some kd3 narrowing in my spinal column in my neck. I have tried to take medications at home but the pain is blinding. I have vomited due to the pain. I want and MRI done. This flare up has lasted for 3 days and i cannot stand it. Coronavirus screen: Vaccine status: Patient reports receiving the 2nd dose of the covid vaccine. Ebola Screen: No symptoms or risks identified at this time. Initial Sepsis Screen: Does the patient meet any 2 criteria? No. Patient's initial sepsis screen is negative. Does the patient have a suspected source of infection? No. Patient's initial sepsis screen is negative. Risk Assessment: Do you want to hurt yourself or someone else? Patient reports no desire to harm self or others. Onset of symptoms was May 15, 2023. 16:18 Method Of Arrival: Ambulatory kd3 16:18 Acuity: VILLA 3 kd3 Triage Assessment: 16:20 General: Appears uncomfortable, Behavior is calm, cooperative. Pain: Complains of pain kd3 in neck. Historical: - Allergies: 16:20 Codeine; kd3 16:20 Morphine; kd3 16:20 PENICILLINS; kd3 - PMHx: 16:20 Anxiety; Hypertension; Hypertensive disorder; Migraines; Hyperlipidemia; Chronic pain; kd3 neuropathy; Anxiety; Depression; chronic back pain; - PSHx: 16:20 section; multiple back surgeries; Appendectomy; Cholecystectomy; hysterctomy; kd3 neck; - Immunization history:: Adult Immunizations up to date. - Social history:: Smoking status: unknown. Screenin:22 [facility] ED Fall Risk Assessment (Adult) History of falling in the last 3 months, rs5 including since admission No falls in past 3 months (0 pts) Confusion or Disorientation No (0 pts) Intoxicated or Sedated No (0 pts) Impaired Gait No (0 pts) Mobility Assist Device Used No (0 pt) Altered Elimination No (0 pt) Score/Fall Risk Level 0 - 2 = Low Risk Oriented to surroundings, Maintained a safe environment. Abuse screen: Denies threats or abuse. Nutritional screening: No deficits noted. Tuberculosis screening: No symptoms or risk factors identified. Assessment: 16:22 General: Appears in no apparent distress. uncomfortable, Behavior is calm, cooperative. rs5 Pain: Complains of pain in neck Pain does not radiate. Pain currently is 8 out of 10 on a pain scale. Quality of pain is described as aching, Is continuous. 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 Gait is steady, Speech is normal, Facial symmetry appears normal, Pupils are PERRLA, Intact. Cardiovascular: Rhythm is regular. Respiratory: Respiratory effort is even, unlabored, Respiratory pattern is regular, symmetrical. 16:22 GI: Abdomen is round non-distended, Abd is soft and non tender. : No signs and/or rs5 symptoms were reported regarding the genitourinary system. EENT: No signs and/or symptoms were reported regarding the EENT system. Derm: Skin is intact, Skin is pink, warm \T\ dry. Musculoskeletal: Range of motion: intact in all extremities. 17:30 Reassessment: Patient and/or family updated on plan of care and expected duration. Pain rs5 level reassessed. Patient is alert, oriented x 3, equal unlabored respirations, skin warm/dry/pink. Patient states feeling better. Patient states symptoms have improved. 18:52 Reassessment: No changes from previously documented assessment. rs5 Vital Signs: 16:16 Weight 54.43 kg; Height 5 ft. 4 in. ; Pain 8/10; kd3 16:18 BP 154 / 94; Pulse 75; Resp 13; Temp 98(O); Pulse Ox 100% on R/A; kd3 18:52 BP 150 / 91; Pulse 77; Resp 18; Pulse Ox 99% on R/A; rs5 16:16 Body Mass Index 20.60 (54.43 kg, 162.56 cm) kd3 16:16 Pain Scale: Adult kd3 ED Course: 15:56 Patient arrived in ED. im 16:01 Randal Melgar PA is PHCP. cp 16:02 Edwardo Liang DO is Attending Physician. cp 16:20 Triage completed. kd3 16:20 Arm band placed on right wrist. kd3 16:22 Patient has correct armband on for positive identification. Placed in gown. Bed in low rs5 position. Call light in reach. Side rails up X2. 16:22 No provider procedures requiring assistance completed. rs5 16:46 Logan Abraham, JONNY is Primary Nurse. rs5 16:49 CT Head C Spine In Process Unspecified. EDMS 17:05 Inserted saline lock: 20 gauge in left antecubital area, using aseptic technique. Blood kd3 collected. 18:42 Maico Padilla DO is Referral Physician. cp 19:04 IV discontinued, intact, bleeding controlled, No redness/swelling at site. Pressure rs5 dressing applied. Administered Medications: 17:05 Drug: Methocarbamol IVPB 1 grams IVPB once over 1 hrs; (mix in NS 100 mL) Route: IVPB; kd3 Infused Over: 1 hrs; Site: left antecubital; 17:20 Follow up: Response: No adverse reaction rs5 17:05 Drug: Ketorolac IVP 15 mg IVP once Route: IVP; Site: left antecubital; kd3 17:20 Follow up: Response: No adverse reaction rs5 17:05 Drug: Decadron - Dexamethasone IVP 10 mg IVP once Route: IVP; Site: left antecubital; kd3 17:20 Follow up: Response: No adverse reaction rs5 17:05 Drug: metoCLOPramide IVP 10 mg IVP once; over 1 to 2 minutes Route: IVP; Site: left kd3 antecubital; 17:20 Follow up: Response: No adverse reaction rs5 Medication: 18:53 VIS not applicable for this client. rs5 Outcome: 18:45 Discharge ordered by MD. cp 19:04 Discharged to home ambulatory, rs5 19:04 Condition: stable 19:04 Discharge instructions given to patient, family, Instructed on discharge instructions, follow up and referral plans. medication usage, Demonstrated understanding of instructions, follow-up care, medications, Prescriptions given X 3, 19:05 Patient left the ED. rs5 Signatures: Dispatcher [employer] EDUT Randal Melgar PA PA cp Naty East RN RN kd3 Logan Abraham RN RN rs5 Caleb, Denice im
--- NOTE | 2023-05-15 18:46 | EDPHYS ---
Physician Documentation [facility] Name: Sydney Oliveira Age: 58 yrs Sex: Female : 1965 Arrival Date: 05/15/2023 Time: 15:52 Bed 10 Private MD: ED Physician Edwardo Liang HPI: 05/14 16:33 This 58 yrs old Female presents to ER via Ambulatory with complaints of Neck Pain, cp >24Hrs Old, Vomiting. 16:33 The patient or guardian complains of pain, that is chronic. The symptoms are located cp left side of neck. Onset: The symptoms/episode began/occurred chronic, worse over past 3 days. Historical: - Allergies: 16:20 Codeine; kd3 16:20 Morphine; kd3 16:20 PENICILLINS; kd3 - PMHx: 16:20 Anxiety; Hypertension; Hypertensive disorder; Migraines; Hyperlipidemia; Chronic pain; kd3 neuropathy; Anxiety; Depression; chronic back pain; - PSHx: 16:20 section; multiple back surgeries; Appendectomy; Cholecystectomy; hysterctomy; kd3 neck; - Immunization history:: Adult Immunizations up to date. - Social history:: Smoking status: unknown. ROS: 16:37 Neck: Positive for pain with movement, pain at rest, of the left side of neck, cp 16:37 Cardiovascular: Negative for chest pain, edema, palpitations, cp 16:37 Eyes: Negative for injury, pain, redness, and discharge, cp 16:37 Constitutional: Negative for body aches, chills, fever, poor PO intake, 16:37 ENT: Negative for drainage from ear(s), ear pain, sore throat, difficulty swallowing, difficulty handling secretions, 16:37 Respiratory: Negative for cough, shortness of breath, wheezing, 16:37 Back: Negative for pain at rest, pain with movement, 16:37 Neuro: Positive for tingling, of the right hand and left hand, Negative for altered mental status, dizziness, headache, weakness, 16:37 All other systems are negative, Exam: 16:40 Constitutional: The patient appears in no acute distress, alert, awake, cp non-diaphoretic, non-toxic, well developed, well nourished, uncomfortable, 16:40 Head/Face: Normocephalic, atraumatic. cp 16:40 Eyes: Periorbital structures: appear normal, Pupils: equal, round, and reactive to light and accomodation, Extraocular movements: intact throughout, Conjunctiva: normal, no exudate, no injection, Sclera: no appreciated abnormality, Lids and lashes: appear normal, bilaterally, 16:40 ENT: External ear(s): are unremarkable, Nose: is normal, Mouth: Lips: moist, Oral mucosa: pink and intact, moist, Posterior pharynx: Airway: no evidence of obstruction, patent, 16:40 Neck: External neck: tenderness, that is moderate, left lateral side of neck, C-spine: vertebral tenderness, that is mild, crepitus, is not appreciated, ROM/movement: pain, that is severe, left lateral neck. limited range of motion, that is mild, in any direction, Meningeal signs: are not present, nuchal rigidity, is not appreciated, Lymph nodes: no appreciated lymphadenopathy, 16:40 Chest/axilla: Inspection: normal, 16:40 Cardiovascular: Rate: normal, Rhythm: regular, 16:40 Respiratory: the patient does not display signs of respiratory distress, Respirations: normal, no use of accessory muscles, no retractions, labored breathing, is not present, Breath sounds: are clear throughout, no decreased breath sounds, no stridor, no wheezing, 16:40 Abdomen/GI: Inspection: abdomen appears normal, Bowel sounds: active, all quadrants, Palpation: abdomen is soft and non-tender, in all quadrants, 16:40 Back: pain, is absent, ROM is normal, 16:40 Neuro: Orientation: to person, place \T\ time. Mentation: is normal, Cerebellar function: is grossly normal, Motor: moves all fours, strength is normal, Sensation: is normal, Vital Signs: 16:16 Weight 54.43 kg; Height 5 ft. 4 in. ; Pain 8/10; kd3 16:18 BP 154 / 94; Pulse 75; Resp 13; Temp 98(O); Pulse Ox 100% on R/A; kd3 18:52 BP 150 / 91; Pulse 77; Resp 18; Pulse Ox 99% on R/A; rs5 16:16 Body Mass Index 20.60 (54.43 kg, 162.56 cm) kd3 16:16 Pain Scale: Adult kd3 MDM: 16:25 Patient medically screened. cp 17:00 Differential diagnosis: C-Spine Fracture Cervical Disc Herniation cervical strain, cp Spinal Cord Compression Thoracic Outlet Syndrome. 18:38 Data reviewed: vital signs, nurses notes, radiologic studies, CT scan. I considered the cp following discharge prescriptions or medication management in the emergency department Medications were administered in the Emergency Department. See MAR. Care significantly affected by the following chronic conditions: Hypertension, chronic pain. Response to treatment: the patient's symptoms have markedly improved after treatment, and as a result, I will discharge patient. 05/14 16:26 Order name: CT Head C Spine; Complete Time: 17:58 cp 05/14 17:58 Interpretation: Reviewed report. cp 05/14 16:26 Order name: IV; Complete Time: 17:05 cp Administered Medications: 17:05 Drug: Methocarbamol IVPB 1 grams IVPB once over 1 hrs; (mix in NS 100 mL) Route: IVPB; kd3 Infused Over: 1 hrs; Site: left antecubital; 17:20 Follow up: Response: No adverse reaction rs5 17:05 Drug: Ketorolac IVP 15 mg IVP once Route: IVP; Site: left antecubital; kd3 17:20 Follow up: Response: No adverse reaction rs5 17:05 Drug: Decadron - Dexamethasone IVP 10 mg IVP once Route: IVP; Site: left antecubital; kd3 17:20 Follow up: Response: No adverse reaction rs5 17:05 Drug: metoCLOPramide IVP 10 mg IVP once; over 1 to 2 minutes Route: IVP; Site: left kd3 antecubital; 17:20 Follow up: Response: No adverse reaction rs5 Disposition: 17:51 I was immediately available on-site in the Emergency Department for consultation in the ms3 care of the patient. Disposition Summary: 05/15/23 18:45 Discharge Ordered Notes: Location: Home cp Problem: an acute exacerbation cp Symptoms: have improved cp Condition: Stable cp Diagnosis - Cervicalgia - chronic cp Followup: cp - With: Maico Padilla DO - When: 1 week - Reason: Recheck today's complaints Discharge Instructions: - Discharge Summary Sheet cp - Heat Therapy cp - Neck Exercises cp Forms: - Medication Reconciliation Form cp - Thank You Letter cp - Antibiotic Education cp - Prescription Opioid Use cp - Patient Portal Instructions cp - Leadership Thank You Letter cp Prescriptions: - Diclofenac Sodium 75 mg Oral Tablet Sustained Release - take 1 tablet ORAL route 2 times per day; 30 tablet; Refills: 0, Product cp Selection Permitted - Medrol (Olman) 4 mg Oral Tablets, Dose Pack - take 1 tablet ORAL route as directed - follow package instructions; 1 packet; cp Refills: 0, Product Selection Permitted - methocarbamol 750 mg Oral tablet - take 1 tablet ORAL route 3 times per day; 30 tablet; Refills: 0, Product cp Selection Permitted Signatures: Dispatcher [employer] EDRandal Lane PA PA Edwardo Barrow DO DO ms3 Naty East RN RN kd3 Logan Abraham RN rs5
[2023-05-15 19:15] VITALS: BP 150/91; TEMP 98; O2SAT 99
== END ==
LOC: ER 15:52
DX: M54.2 Cervicalgia (principal); R20.2 Paresthesia of skin; G89.29 Other chronic pain; I10 Essential (primary) hypertension; Z88.0 Allergy status to penicillin; Z88.5 Allergy status to narcotic agent
CPT/HCPCS: 70450; 72125; 96375; 96374; 99284; J2765; J1100; J2800

== ENCOUNTER 2023-11-14 19:19 | Emergency (ER) | payer OTHER ==
[2023-11-14] MEDS ORDERED: ONDANSETRON 4 MG/2 ML VIAL ONE (20:28)
[2023-11-14] MEDS ORDERED: KETOROLAC 30 MG/ML INJ ONE (20:29)
[2023-11-14] MEDS ORDERED: methocarbamoL 750 MG TAB ONE (20:29)
[2023-11-14] MEDS ORDERED: METOCLOPRAMIDE 10 MG/2mL INJ ONE (20:29)
[2023-11-14] MEDS ORDERED: DIAZEPAM 5 MG TABLET ONE (20:29)
[2023-11-14] MEDS ORDERED: NA CHLORIDE 0.9% 1,000 ML ONE (20:30)
[2023-11-14] MEDS ORDERED: DIAZEPAM 10 MG/2 ML INJ SYRINGE ONE (20:41)
--- NOTE | 2023-11-14 21:20 | ER ---
Nurse's Notes [facility] Name: Sydney Oliveira Age: 58 yrs Sex: Female : 1965 Arrival Date: 11/14/2023 Time: 19:19 Bed 6 Private MD: Diagnosis: Exacerbation of chronic neck pain, acute cervicalgia, acute nausea with vomiting Presentation: 11/13 20:04 Chief complaint: Patient states: "I have disc problems and the nerves between my 3 and vc1 4 are acting up. I see a pain management DrTj for it. I tried to take my pain pill earlier but I just keep throwing up.". Coronavirus screen: Client denies travel out of the [place] in the last 14 days. At this time, the client does not indicate any symptoms associated with coronavirus-19. Ebola Screen: Patient negative for fever greater than or equal to 101.5 degrees Fahrenheit, and additional compatible Ebola Virus Disease symptoms Patient denies exposure to infectious person. Patient denies travel to an Ebola-affected area in the 21 days before illness onset. No symptoms or risks identified at this time. Initial Sepsis Screen: Does the patient meet any 2 criteria? No. Patient's initial sepsis screen is negative. Does the patient have a suspected source of infection? No. Patient's initial sepsis screen is negative. Risk Assessment: Do you want to hurt yourself or someone else? Patient reports no desire to harm self or others. Onset of symptoms was November 14, 2023. Care prior to arrival: Medication(s) given: 2 mg dilaudid and 4 mg zofran, Pt states she vomited after. Activity prior to arrival: vomiting. 20:04 Method Of Arrival: Ambulatory vc1 20:04 Acuity: VILLA 3 vc1 Triage Assessment: 20:09 General: Appears in no apparent distress. uncomfortable, Behavior is cooperative. Pain: vc1 Complains of pain in neck Pain does not radiate. Pain currently is 10 out of 10 on a pain scale. EENT: No deficits noted. No signs and/or symptoms were reported regarding the EENT system. Neuro: Level of Consciousness is awake, alert, obeys commands, Oriented to person, place, time, situation, Appropriate for age. Cardiovascular: Capillary refill < 3 seconds Patient's skin is warm and dry. Respiratory: Airway is patent Respiratory effort is even, unlabored, Respiratory pattern is regular, symmetrical. GI: Abdomen is flat, non-distended, Reports intolerance of fluids, intolerance of food, nausea, vomiting. Derm: Skin is intact, is healthy with good turgor, Skin is dry, Skin is normal, Skin temperature is warm. Historical: - Allergies: 20:07 Codeine; vc1 20:07 Morphine; vc1 20:07 PENICILLINS; vc1 - Home Meds: 20:07 Dilaudid 2 mg Oral tab [Active]; vc1 - PMHx: 20:07 Anxiety; Anxiety; chronic back pain; Chronic pain; Depression; Hyperlipidemia; vc1 Hypertension; Hypertensive disorder; Migraines; neuropathy; - PSHx: 20:07 Appendectomy; section; Cholecystectomy; hysterctomy; multiple back surgeries; vc1 neck; - Immunization history:: Client reports receiving the 2nd dose of the Covid vaccine. - Infectious Disease History:: Denies. - Social history:: Smoking status: Patient reports the use of cigarette tobacco products, smokes one pack cigarettes per day. Screenin:44 [facility] ED Fall Risk Assessment (Adult) History of falling in the last 3 months, kd4 including since admission No falls in past 3 months (0 pts) Confusion or Disorientation No (0 pts) Intoxicated or Sedated No (0 pts) Impaired Gait No (0 pts) Mobility Assist Device Used No (0 pt) Altered Elimination No (0 pt) Score/Fall Risk Level 0 - 2 = Low Risk Oriented to surroundings, Maintained a safe environment. Abuse screen: Denies threats or abuse. Nutritional screening: No deficits noted. Tuberculosis screening: No symptoms or risk factors identified. Assessment: 20:44 Pain: Complains of pain in neck Pain currently is 9 out of 10 on a pain scale. Neuro: kd4 Denies weakness numbness. GI: Reports nausea. GI: Patient currently denies abdominal pain, diarrhea. 21:33 Reassessment: Patient and/or family updated on plan of care and expected duration. Pain ha1 level reassessed. Patient is alert, oriented x 3, equal unlabored respirations, skin warm/dry/pink. PAIN 0/10 Patient states feeling better. Patient states symptoms have improved. Vital Signs: 20:04 BP 153 / 99; Pulse 124; Resp 15; Temp 97; Pulse Ox 100% ; Weight 56.25 kg; Height 5 ft. vc1 4 in. ; Pain 10/10; 21:15 BP 152 / 90; Pulse 65; Resp 17 S; Pulse Ox 100% on R/A; ha1 20:04 Body Mass Index 21.28 (56.25 kg, 162.56 cm) vc1 20:04 Pain Scale: Adult vc1 Liliana Coma Score: 20:44 Eye Response: spontaneous(4). Motor Response: obeys commands(6). Verbal Response: kd4 oriented(5). Total: 15. 21:15 Eye Response: spontaneous(4). Motor Response: obeys commands(6). Verbal Response: sp4 oriented(5). Total: 15. ED Course: 19:23 Patient arrived in ED. mr 20:03 Jacques Herrera MD is Attending Physician. sp4 20:07 Triage completed. vc1 20:09 Arm band placed on right wrist. vc1 20:44 Patient has correct armband on for positive identification. Side rails up X2. kd4 20:44 Inserted saline lock: 20 gauge in right antecubital area, using aseptic technique. kd4 21:35 Provided Education on: MEDICATION ADMINISTRATION . ha1 21:35 No provider procedures requiring assistance completed. ha1 21:41 IV discontinued. kd4 Administered Medications: 20:39 Drug: Ketorolac IVP 30 mg IVP once Route: IVP; Site: right antecubital; kd4 21:00 Follow up: Response: No adverse reaction; Marked relief of symptoms; Pain is decreased ha1 20:39 Drug: Ondansetron IVP 8 mg IVP once; over 2 minutes Route: IVP; Site: right antecubital;kd4 21:00 Follow up: Response: No adverse reaction; Marked relief of symptoms ha1 20:39 Drug: metoCLOPramide IVP 10 mg IVP once; over 1 to 2 minutes Route: IVP; Site: right kd4 antecubital; 21:00 Follow up: Response: No adverse reaction; Marked relief of symptoms ha1 20:40 Drug: NS 0.9% IV 1000 ml IV at 1 bolus Per protocol; 1000 mL bolus Route: IV; Rate: 1 kd4 bolus; Site: right antecubital; 21:36 Follow up: Response: No adverse reaction; IV Status: Completed infusion; IV Intake: ha1 1000ml 21:00 Drug: Diazepam IVP 5 mg IVP once Route: IVP; Site: right antecubital; kd4 21:15 Follow up: Response: No adverse reaction; Marked relief of symptoms; Pain is decreased ha1 21:39 Drug: Dexamethasone IVP 10 mg IVP once; (not to exceed 40 mg) Route: IVP; Site: right kd4 antecubital; 21:39 Follow up: Response: No adverse reaction kd4 21:41 Drug: Methocarbamol PO 1500 mg PO once Route: PO; kd4 21:41 Follow up: Response: No adverse reaction kd4 Medication: 21:35 VIS not applicable for this client. ha1 Intake: 21:36 IV: 1000ml; Total: 1000ml. ha1 Outcome: 21:20 Discharge ordered by . mayuri 21:35 Discharged to home ambulatory, with family, 1 21:35 Condition: stable 21:35 Discharge instructions given to patient, family, Instructed on discharge instructions, follow up and referral plans. Demonstrated understanding of instructions, follow-up care, 21:42 Patient left the ED. kd4 Signatures: Micaela Carcamo, Reg Reg mr AaronluchoZulema, RN RN vc1 Sugar Bob RN RN ha1 Jacques Herrera MD MD sp4 Tisha An RN RN kd4
--- NOTE | 2023-11-14 21:20 | EDPHYS ---
Physician Documentation [facility] Name: Sydney Oliveira Age: 58 yrs Sex: Female : 1965 Arrival Date: 11/14/2023 Time: 19:19 Bed 6 Private MD: ED Physician Jacques Herrera HPI: 11/13 20:03 This 58 yrs old Female presents to ER via Unassigned with complaints of sp4 Neck pain, Nausea. 20:06 Historical: Allergies: Codeine; Morphine; PENICILLINS; PMHx: Anxiety; Hypertension; sp4 Hypertensive disorder; Migraines; Hyperlipidemia; Chronic pain; neuropathy; Anxiety; Depression; chronic back pain PSHx: section; multiple back surgeries; Appendectomy; Cholecystectomy; hysterctomy; neck; . 21:13 58-year-old female presents with acute onset of the neck pain exacerbation of chronic sp4 neck pain. Patient states she has history of cervical fusion C4-C7 also multiple spinal surgeries. Is on pain management at home she takes hydromorphone 2 mg twice a day p.o. also losartan metoprolol and ondansetron. Patient is here with EMS for moderate to severe neck pain associated with recent exacerbation.. Denied weakness or paralysis. 21:18 Patient associates profuse vomiting associated with pain. sp4 Historical: - Allergies: 20:07 Codeine; vc1 20:07 Morphine; vc1 20:07 PENICILLINS; vc1 - Home Meds: 20:07 Dilaudid 2 mg Oral tab [Active]; vc1 - PMHx: 20:07 Anxiety; Anxiety; chronic back pain; Chronic pain; Depression; Hyperlipidemia; vc1 Hypertension; Hypertensive disorder; Migraines; neuropathy; - PSHx: 20:07 Appendectomy; section; Cholecystectomy; hysterctomy; multiple back surgeries; vc1 neck; - Immunization history:: Client reports receiving the 2nd dose of the Covid vaccine. - Infectious Disease History:: Denies. - Social history:: Smoking status: Patient reports the use of cigarette tobacco products, smokes one pack cigarettes per day. ROS: 21:15 Constitutional: Negative for fever, chills, and weight loss, positive for worsening sp4 neck pain, negative for weakness or paralysis Eyes: Negative for injury, pain, redness, and discharge, 21:15 All other systems are negative, 21:18 Abdomen/GI: Positive for nausea, vomiting, sp4 Exam: 21:15 Constitutional: This is a well developed, well nourished patient who is awake, alert, sp4 comfortable appearing secondary to pain Head/Face: Normocephalic, atraumatic. Eyes: Pupils equal round and reactive to light, extra-ocular motions intact. Lids and lashes normal. Conjunctiva and sclera are not injected. Cornea within normal limits. Periorbital areas with no swelling, redness, or edema. ENT: Nares patent. No nasal discharge, no septal abnormalities noted. Tympanic membranes are normal and external auditory canals are clear. Oropharynx with no redness, swelling, or masses, exudates, or evidence of obstruction, uvula midline. Mucous membranes moist. Neck: Trachea midline, no thyromegaly or masses palpated, and no cervical lymphadenopathy. Supple, full range of motion without nuchal rigidity, or vertebral point tenderness. Chest/axilla: Normal chest wall appearance and motion. Nontender with no deformity. No lesions are appreciated. Cardiovascular: Regular rate and rhythm with a normal S1 and S2. No gallops, murmurs, or rubs. Normal PMI, no JVD. No pulse deficits. Respiratory: Lungs have equal breath sounds bilaterally, clear to auscultation and percussion. No rales, rhonchi or wheezes noted. No increased work of breathing, no retractions or nasal flaring. Abdomen/GI: Soft, with normal bowel sounds. No distension or tympany. No guarding or rebound. No evidence of tenderness throughout. Back: No spinal tenderness. No costovertebral tenderness. Skin: Warm, dry with normal turgor. Normal color with no rashes, no lesions, and no evidence of cellulitis. MS/ Extremity: Pulses equal, no cyanosis. Neurovascular intact. Full, normal range of motion. Neuro: Awake and alert, GCS 15, oriented to person, place, time, and situation. Cranial nerves II-XII grossly intact. Motor strength 5/5 in all extremities. Sensory grossly intact. Psych: Awake, alert, with orientation to person, place and time. Behavior, mood, and affect are within normal limits Vital Signs: 20:04 BP 153 / 99; Pulse 124; Resp 15; Temp 97; Pulse Ox 100% ; Weight 56.25 kg; Height 5 ft. vc1 4 in. ; Pain 10/10; 21:15 BP 152 / 90; Pulse 65; Resp 17 S; Pulse Ox 100% on R/A; ha1 20:04 Body Mass Index 21.28 (56.25 kg, 162.56 cm) vc1 20:04 Pain Scale: Adult vc1 Liliana Coma Score: 20:44 Eye Response: spontaneous(4). Motor Response: obeys commands(6). Verbal Response: kd4 oriented(5). Total: 15. 21:15 Eye Response: spontaneous(4). Motor Response: obeys commands(6). Verbal Response: sp4 oriented(5). Total: 15. MDM: 20:15 Patient medically screened. sp4 21:15 Differential diagnosis: Nonspecific abd pain, gastritis, viral gastroenteritis, sp4 gastroenteritis. Data reviewed: vital signs, nurses notes, EMS record, old medical records. 21:18 Consideration of Admission/Observation Escalation of care including sp4 admission/observation considered. ED course: Reports improvement in pain. Patient requested dexamethasone or other anti-inflammatory steroid. After management for pain patient feels improved states she is ready to go home. There is no sign of paralysis on exam. Neurologic exam is normal , patient is stable for discharge home. Administered Medications: 20:39 Drug: Ketorolac IVP 30 mg IVP once Route: IVP; Site: right antecubital; kd4 21:00 Follow up: Response: No adverse reaction; Marked relief of symptoms; Pain is decreased ha1 20:39 Drug: Ondansetron IVP 8 mg IVP once; over 2 minutes Route: IVP; Site: right antecubital;kd4 21:00 Follow up: Response: No adverse reaction; Marked relief of symptoms ha1 20:39 Drug: metoCLOPramide IVP 10 mg IVP once; over 1 to 2 minutes Route: IVP; Site: right kd4 antecubital; 21:00 Follow up: Response: No adverse reaction; Marked relief of symptoms ha1 20:40 Drug: NS 0.9% IV 1000 ml IV at 1 bolus Per protocol; 1000 mL bolus Route: IV; Rate: 1 kd4 bolus; Site: right antecubital; 21:36 Follow up: Response: No adverse reaction; IV Status: Completed infusion; IV Intake: ha1 1000ml 21:00 Drug: Diazepam IVP 5 mg IVP once Route: IVP; Site: right antecubital; kd4 21:15 Follow up: Response: No adverse reaction; Marked relief of symptoms; Pain is decreased ha1 21:39 Drug: Dexamethasone IVP 10 mg IVP once; (not to exceed 40 mg) Route: IVP; Site: right kd4 antecubital; 21:39 Follow up: Response: No adverse reaction kd4 21:41 Drug: Methocarbamol PO 1500 mg PO once Route: PO; kd4 21:41 Follow up: Response: No adverse reaction kd4 Disposition Summary: 11/14/23 21:20 Discharge Ordered Notes: Location: Home sp4 Problem: new sp4 Symptoms: have improved sp4 Condition: Stable sp4 Diagnosis - Exacerbation of chronic neck pain, acute cervicalgia, acute nausea with vomiting sp4 Followup: sp4 - With: Private Physician - When: 7 - 10 days - Reason: Recheck today's complaints Discharge Instructions: - Discharge Summary Sheet sp4 - Spinal Fusion, Adult sp4 Forms: - Patient Portal Instructions sp4 Signatures: Zulema Hoffmann RN RN vc1 Jacques Herrera MD MD sp4 Tisha An RN RN kd4 Sugar Bob RN ha1
[2023-11-14] MEDS ORDERED: dexAMETHasone 10 MG/ML VIAL ONE (21:30)
[2023-11-14 22:29] VITALS: TEMP 97; O2SAT 100
[2023-11-14 22:31] VITALS: BP 152/90
== END 2023-11-14 21:42 | disposition home or self-care (01) ==
LOC: ER 19:19
DX: M54.2 Cervicalgia (principal); R11.2 Nausea with vomiting, unspecified; F17.210 Nicotine dependence, cigarettes, uncomplicated
CPT/HCPCS: 96361; 96375; 96374; 99284; J2765; J3360; J1100; J2405; J7030

== ENCOUNTER 2024-01-28 17:54 | Emergency (ER) | payer OTHER ==
--- NOTE | 2024-01-28 19:10 | ER ---
Nurse's Notes [facility] Name: Sydney Oliviera Age: 58 yrs Sex: Female : 1965 Arrival Date: 01/28/2024 Time: 17:54 Bed DX1 Private MD: Noel Corrales Diagnosis: SARS-associated coronavirus as the cause of diseases classified elsewhere;Dental caries, unspecified Presentation: 01/27 18:24 Chief complaint: Patient states: right upper back tooth pain and bleeding, had covid ko1 positive test at home. Coronavirus screen: Client presents with at least one sign or symptom that may indicate coronavirus-19. Standard/surgical mask placed on the client. Ebola Screen: No symptoms or risks identified at this time. Initial Sepsis Screen: Does the patient meet any 2 criteria? No. Patient's initial sepsis screen is negative. Does the patient have a suspected source of infection? No. Patient's initial sepsis screen is negative. Risk Assessment: Do you want to hurt yourself or someone else? Patient reports no desire to harm self or others. Onset of symptoms is unknown. 18:24 Method Of Arrival: Ambulatory ko1 18:24 Acuity: VILLA 4 ko1 Triage Assessment: 18:29 General: Appears uncomfortable, Behavior is calm, cooperative, appropriate for age. ko1 Pain: Complains of pain in right cheek. EENT: Reports pain in right upper back teeth. Historical: - Allergies: 18:29 Codeine; ko1 18:29 Morphine; ko1 18:29 PENICILLINS; ko1 - PMHx: 18:29 Anxiety; Chronic pain; Depression; Hyperlipidemia; Hypertension; Migraines; neuropathy; ko1 - PSHx: 18:29 Appendectomy; multiple back surgeries; hysterctomy; Cholecystectomy; section; ko1 neck; - Immunization history:: Adult Immunizations unknown. - Infectious Disease History:: Denies. - Social history:: Smoking status: Patient reports the use of cigarette tobacco products, smokes one pack cigarettes per day. - Family history:: not pertinent. - Hospitalizations: : No recent hospitalization is reported. Screenin:40 [facility] ED Fall Risk Assessment (Adult) History of falling in the last 3 months, lg3 including since admission No falls in past 3 months (0 pts) Confusion or Disorientation No (0 pts) Intoxicated or Sedated No (0 pts) Impaired Gait No (0 pts) Mobility Assist Device Used No (0 pt) Altered Elimination No (0 pt) Score/Fall Risk Level 0 - 2 = Low Risk Oriented to surroundings, Maintained a safe environment, Educated pt \T\ family on fall prevention, incl call for assistance when getting out of bed, Assessed \T\ reinforced patient's understanding of fall precautions. Abuse screen: Denies threats or abuse. Denies injuries from another. Nutritional screening: No deficits noted. Tuberculosis screening: No symptoms or risk factors identified. Assessment: 19:40 General: Appears in no apparent distress. comfortable, Behavior is calm, cooperative. lg3 Pain: Complains of pain in right cheek. Neuro: No deficits noted. Murray Agitation-Sedation Scale (RASS): 0 - Alert and Calm Level of Consciousness is awake, alert, obeys commands, Oriented to person, place, time, situation. Cardiovascular: No deficits noted. Denies chest pain, Capillary refill < 3 seconds Clubbing of nail beds is absent JVD is absent Patient's skin is warm and dry. Respiratory: Reports shortness of breath cough that is Breath sounds are clear bilaterally. GI: No deficits noted. No signs and/or symptoms were reported involving the gastrointestinal system. : No signs and/or symptoms were reported regarding the genitourinary system. EENT: Reports nasal congestion. Derm: No deficits noted. No signs and/or symptoms reported regarding the dermatologic system. Skin is intact, is healthy with good turgor, Skin is dry, Skin is normal, Skin temperature is warm. Musculoskeletal: No deficits noted. Circulation, motion, and sensation intact. Range of motion: intact in all extremities, Reports body aches. Vital Signs: 18:24 BP 144 / 83; Pulse 86; Resp 18; Temp 97.9; Pulse Ox 98% ; ko1 19:40 BP 139 / 84; Pulse 81; Resp 17 S; Temp 97.5(O); Pulse Ox 99% on R/A; lg3 ED Course: 17:57 Patient arrived in ED. mr 17:58 Noel Corrales MD is Private Physician. mr 18:12 Sage Astorga MD is Attending Physician. rn 18:29 Triage completed. ko1 18:29 Arm band placed on right wrist. Patient placed in waiting room, Patient notified of ko1 wait time. 19:40 Patient has correct armband on for positive identification. lg3 19:40 No provider procedures requiring assistance completed. Patient did not have IV access lg3 during this emergency room visit. Administered Medications: No medications were administered Medication: 19:40 VIS not applicable for this client. lg3 Outcome: 19:10 Discharge ordered by . rn 19:40 Discharged to home ambulatory, lg3 19:40 Condition: stable 19:40 Discharge instructions given to patient, Instructed on discharge instructions, follow up and referral plans. medication usage, Demonstrated understanding of instructions, follow-up care, medications, Prescriptions given X 3, 19:45 Patient left the ED. lg3 Signatures: Micaela Carcamo, Reg Reg mr Sage Astorga MD MD rn Able, Lacie, RN RN lg3 Umu Warren RN RN ko1 Corrections: (The following items were deleted from the chart) 18:30 18:29 PMHx: Anxiety; ko1 ko1 18:30 18:29 PMHx: Hypertensive disorder; ko1 ko1 18:30 18:29 PMHx: chronic back pain; ko1 ko1
--- NOTE | 2024-01-28 19:10 | EDPHYS ---
Physician Documentation [facility] Name: Sydney Oliveira Age: 58 yrs Sex: Female : 1965 Arrival Date: 01/28/2024 Time: 17:54 Bed DX1 Private MD: Noel Corrales ED Physician Sage Astorga HPI: 01/27 19:07 This 58 yrs old Female presents to ER via Ambulatory with complaints of Toothache, rn covid+. 19:07 Patient presents for 2 problems. Reports tested COVID-positive at home and has been rn sick a couple of days. Also reports right upper dental pain where she thinks she lost a filling or. No difficulty breathing. Does report chronic smoking history and is out of albuterol.. Historical: - Allergies: 18:29 Codeine; ko1 18:29 Morphine; ko1 18:29 PENICILLINS; ko1 - PMHx: 18:29 Anxiety; Chronic pain; Depression; Hyperlipidemia; Hypertension; Migraines; neuropathy; ko1 - PSHx: 18:29 Appendectomy; multiple back surgeries; hysterctomy; Cholecystectomy; section; ko1 neck; - Immunization history:: Adult Immunizations unknown. - Infectious Disease History:: Denies. - Social history:: Smoking status: Patient reports the use of cigarette tobacco products, smokes one pack cigarettes per day. - Family history:: not pertinent. - Hospitalizations: : No recent hospitalization is reported. 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 ENT: No stridor, poor dentition with deep caries right upper tooth. No abscess Cardiovascular: Regular rate and rhythm. No pulse deficits. Respiratory: No increased work of breathing, no retractions or nasal flaring. Vital Signs: 18:24 BP 144 / 83; Pulse 86; Resp 18; Temp 97.9; Pulse Ox 98% ; ko1 19:40 BP 139 / 84; Pulse 81; Resp 17 S; Temp 97.5(O); Pulse Ox 99% on R/A; lg3 MDM: 18:12 Medical Screening Exam initiated rn 19:07 Differential diagnosis: dental caries, COVID. Data reviewed: vital signs, nurses notes, rn and as a result, I will discharge patient. Counseling: I had a detailed discussion with the patient and/or guardian regarding the historical points, exam findings, and any diagnostic results supporting the discharge/admit diagnosis, the need for outpatient follow up, to return to the emergency department if symptoms worsen or persist or if there are any questions or concerns that arise at home. Special discussion: I discussed with the patient/guardian in detail that at this point there is no indication for admission to the hospital. It is understood, however, that if the symptoms persist or worsen the patient needs to return immediately for re-evaluation. 19:07 ED course: No oxygen requirement, already came with positive COVID test and showed it rn to me. Will discharge home with steroids and inhaler given smoking history and has prescribed inhaler. Will give antibiotic for dentalgia with deep caries.. Administered Medications: No medications were administered Disposition Summary: 01/28/24 19:10 Discharge Ordered Notes: Location: Home rn Problem: new rn Symptoms: have improved rn Condition: Stable rn Diagnosis - SARS-associated coronavirus as the cause of diseases classified elsewhere rn - Dental caries, unspecified rn Followup: rn - With: Private Physician - When: As needed - Reason: Recheck today's complaints, Re-evaluation by your physician Discharge Instructions: - Discharge Summary Sheet rn - Dental Caries, Adult rn - COVID-19 rn - 10 Things You Can Do to Manage Your COVID-19 Symptoms at Home - [facility] (09/22/2020) rn - Viral Illness, Adult rn Forms: - Medication Reconciliation Form rn - Antibiotic burn center nurse - Prescription Opioid Use rn - Patient Portal Instructions rn - Leadership Thank You Letter rn Prescriptions: - albuterol sulfate 90 mcg/actuation Inhalation HFA Aerosol Inhaler - inhale 2 inhalation INHALATION route every 4 to 6 hours As needed as needed for rn bronchospasm; administer via ventilator; 1 unit; Refills: 0, Product Selection Permitted - Clindamycin HCl 300 mg Oral Capsule - take 1 capsule ORAL route every 6 hours for 10 days; 40 capsule; Refills: 0, rn Product Selection Permitted - Prednisone 20 mg Oral Tablet - take 3 tablets ORAL route once daily for 5 days; 15 tablet; Refills: 0, Product rn Selection Permitted Signatures: Dispatcher [employer] EDMS Sage Astorga MD MD rn Oliver, Kathy, RN RN ko1 Corrections: (The following items were deleted from the chart) 18:30 18:29 PMHx: Anxiety; ko1 ko1 18:30 18:29 PMHx: Hypertensive disorder; ko1 ko1 18:30 18:29 PMHx: chronic back pain; ko1 ko1 19:12 18:22 SARS-COV-2 Antigen Rapid+I.LAB.BRZ ordered. EDMS EDMS 19:12 18:22 Influenza Screen (A \T\ B)+BA.LAB.BRZ ordered. EDMS EDMS
[2024-01-28 19:52] VITALS: BP 139/84; TEMP 97.5; O2SAT 99
== END 2024-01-28 19:45 | disposition home or self-care (01) ==
LOC: ER 17:54
DX: U07.1 COVID-19 (principal); K02.9 Dental caries, unspecified; F17.210 Nicotine dependence, cigarettes, uncomplicated
CPT/HCPCS: 99283